=== PATIENT | female | born 1945 | race Caucasian/White ===

== ENCOUNTER 2020-03-16 23:21 | Emergency (ER) | payer MEDICARE ==
[2020-03-16 23:34] VITALS: TEMP 98.3
--- NOTE | 2020-03-16 23:43 | ED ---
Fall HPI - General Chief Complaint: Fall Stated Complaint: fall Time Seen by Provider: 03/16/20 23:25 Source: patient, EMS, RN notes reviewed, old records reviewed, Caregiver Mode of arrival: EMS Limitations: no limitations - History of Present Illness Initial Comments: This is a 74-year-old female DF for evaluation of fall. Patient had a fall with her Parkinson's history of multiple falls falls over trip loss of balance been in phone to the dresser hitting her head hitting the ground patient is able to get up and ambulate after this fall. No loss of consciousness no blood thinners. Patient does have some pain to her right side of her face and right elbow. 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 ROS Other: All systems not noted in ROS Statement are negative. 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 History of Any Multi-Drug Resistant Organisms: None Reported Past Surgical History: Section, Joint Replacement, Tonsillectomy, Tubal Ligation Past Psychological History: No Psychological Hx Reported Smoking Status: Never smoker Past Alcohol Use History: None Reported Past Drug Use History: None Reported General Exam Limitations: physical limitation General appearance: alert, in no apparent distress Head exam: Present: normocephalic, normal inspection. Absent: atraumatic (R eye contusion) Eye exam: Present: normal appearance, PERRL, EOMI. Absent: scleral icterus, conjunctival injection, periorbital swelling ENT exam: Present: normal exam, mucous membranes moist Neck exam: Present: normal inspection. Absent: tenderness, meningismus, lymphadenopathy Respiratory exam: Present: normal lung sounds bilaterally. Absent: respiratory distress, wheezes, rales, rhonchi, stridor Cardiovascular Exam: Present: regular rate, normal rhythm, normal heart sounds. Absent: systolic murmur, diastolic murmur, rubs, gallop, clicks GI/Abdominal exam: Present: soft, normal bowel sounds. Absent: distended, tenderness, guarding, rebound, rigid Extremities exam: Present: normal inspection, full ROM, tenderness (RUE), normal capillary refill, other (R elbow tenderness). Absent: pedal edema, joint swelling, calf tenderness Back exam: Present: normal inspection Neurological exam: Present: alert, oriented X3, CN II-XII intact Psychiatric exam: Present: normal affect, normal mood Skin exam: Present: warm, dry, intact, normal color. Absent: rash Course Vital Signs 03/16/20 23:24 Temperature 98.3 F Pulse Rate 74 Respiratory 16 Rate Blood Pressure 140/96 O2 Sat by Pulse 98 Oximetry - Reevaluation(s) Reevaluation #1: 03/17/20 01:35 Medical records reviewed Reevaluation #2: 03/17/20 01:35 Patient is not requiring anything new for pain - Consultations Consultation #1: Spoke with Dr. Rowland, patient's okay in the office Procedures - Orthopedic Splinting/Casting Injury #1 Side: right Upper Extremity Injury Location: elbow Upper Extremity Immobilizer: sling/shoulder immobilizer, posterior splint Medical Decision Making - Medical Decision Making 74 female status post fall she did sustain right transcondylar humerus fracture as well as posterior molded splint placed in sling which she has currently on, patient can be discharged - Radiology Data Radiology results: report reviewed (CT brain C-spine and facial bones x-ray of arm and pelvis and chest does amount to a right humerus fracture), image reviewed Disposition Clinical Impression: Fall, Head injury, Right humeral fracture Disposition: HOME SELF-CARE Condition: Fair Instructions (If sedation given, give patient instructions): Fall Prevention for Older Adults (ED), Arm Fracture in Adults (ED) Is patient prescribed a controlled substance at d/c from ED?: No Referrals: Francoise Castrejon MD [Primary Care Provider] - 1-2 days
--- NOTE | 2020-03-17 00:16 | XR ---
EXAMINATION TYPE: XR pelvis AP view DATE OF EXAM: 03/17/2020 COMPARISON: NONE HISTORY: Fall. Pain. TECHNIQUE: Single view FINDINGS: The pelvic ring is intact. There is a left hip prosthesis. Components are in anatomic posit ion. Sacroiliac joints appear intact. There is osteopenia. IMPRESSION: No acute abnormality of the pelvis.
--- NOTE | 2020-03-17 00:17 | XR ---
EXAMINATION TYPE: XR chest 1V DATE OF EXAM: 03/17/2020 COMPARISON: NONE HISTORY: Fall. Chest pain TECHNIQUE: Single view FINDINGS: Heart is normal. Thoracic aorta is atheromatous. Lungs are clear of infiltrate. There is no pleural effusion or pneumothorax. There is osteopenia. There is narrowing of the shoulder joint spac es. IMPRESSION: No active cardiopulmonary disease.
--- NOTE | 2020-03-17 00:18 | XR ---
EXAMINATION TYPE: XR shoulder limited RT DATE OF EXAM: 03/17/2020 COMPARISON: NONE HISTORY: Older pain TECHNIQUE: 2 views FINDINGS: I see no fracture nor dislocation. There is minor spurring at the greater tuberosity of the humerus. AC joint is intact. IMPRESSION: No acute abnormality of the right shoulder. Limited exam.
--- NOTE | 2020-03-17 00:25 | CT ---
EXAMINATION TYPE: CT brain yazmin saini DATE OF EXAM: 03/17/2020 COMPARISON: None HISTORY: fall CT DLP: 840.3 mGycm Automated exposure control for dose reduction was used. There is some cerebral cortical atrophy. There is no mass effect nor midline shift. There is no sign of intracranial hemorrhage. Calvarium is intact. There is some straightening of the cervical spine. There is severe disc space narrowing throughout th e cervical spine with ankylosis at C5-6 and C6-7. Posterior elements are intact. There is mild hypert rophic facet arthropathy. The skull base is intact. IMPRESSION: Cerebral atrophy. No acute intracranial abnormality. Lateral right side periorbital hematoma. Spondylotic changes in the cervical spine. No fracture.
--- NOTE | 2020-03-17 00:34 | CT ---
EXAMINATION TYPE: CT facial bones wo con DATE OF EXAM: 03/17/2020 COMPARISON: None HISTORY: fall CT DLP: 279.9 mGycm Automated exposure control for dose reduction was used. Images were obtained from the bottom of the mandible to the top of the frontal sinuses without contra st. Ventricular ring appears intact. Temporomandibular joints are intact. Zygomatic arches appear normal. The orbital margins are intact. There is no evidence of retro-orbital mass. There is fairly normal a eration of the paranasal sinuses. There is no evidence of a blowout fracture. There is normal aeratio n of the temporal bones. There is some debris in the external auditory canals. There is soft tissue s welling lateral to the right bony orbit. This measures up to almost 1 cm in thickness. IMPRESSION: No fracture. Right side periorbital soft tissue swelling and hematoma.
--- NOTE | 2020-03-17 00:35 | XR ---
EXAMINATION TYPE: XR elbow limited RT DATE OF EXAM: 03/17/2020 COMPARISON: NONE HISTORY: Elbow pain TECHNIQUE: 3 views FINDINGS: There is minor spurring on the olecranon process of the ulna. There is nondisplaced transco ndylar fracture of the distal humerus. There is no dislocation. IMPRESSION: Acute transcondylar fracture of the distal humerus.
[2020-03-17 01:45] VITALS: BP 122/80; PULSE 79; RESP 18
== END 2020-03-17 02:10 | disposition home or self-care (01) ==
LOC: EC 23:21
DX: S42.474A Nondisplaced transcondylar fracture of right humerus, initial encounter for closed fracture (principal); S09.90XA Unspecified injury of head, initial encounter; Z86.69 Personal history of other diseases of the nervous system and sense organs; W01.198A Fall on same level from slipping, tripping and stumbling with subsequent striking against other object, initial encounter; Y92.009 Unspecified place in unspecified non-institutional (private) residence as the place of occurrence of the external cause
CPT/HCPCS: 29105; 70450; 70486; 71045; 72125; 72170; 99284

== ENCOUNTER 2020-05-06 18:43 | Emergency (ER) | payer MEDICARE ==
[2020-05-06 18:47] VITALS: RESP 18
[2020-05-06] MEDS ORDERED: SODIUM CHLORIDE 0.9% 500 ML 500 ML IV STA (19:11)
--- NOTE | 2020-05-06 19:43 | ED ---
Recheck HPI - General Source: EMS Mode of arrival: EMS Limitations: no limitations <Vonda Slaughter - Last Filed: 05/07/20 02:35> <Radha Rodriguez - Last Filed: 05/10/20 16:59> - General Chief Complaint: Recheck/Abnormal Lab/Rx Stated Complaint: lethargy Time Seen by Provider: 05/06/20 18:47 - History of Present Illness Initial Comments: Patient is a 74-year-old female, history of Parkinson's, A. fib, presenting to the emergency Department with complaints of low blood pressure. Patient states she was prescribed metoprolol when necessary for blood pressure that is greater than 120. Patient states her blood pressure was 140 earlier today so she took one metoprolol. Patient's blood pressure dropped down to 60/30 and so they called her PCP and recommended her coming to the ER. They did check her blood p ressure 5-6 times over a 20 minute course and the blood pressure did come up to 110/80. Patient states she has no complaints, "she feels fine." The daughter states that the patient was complaining of dysuria a few days ago. She has been eating and drinking as normal. There has been no other changes in her medications. Patient denies chest pain, shortness of breath, cough, recent fever or chills. She denies any abdominal pain, nausea, vomiting. There are no further complaints at this time. Upon arrival to the ER, her blood pressure is 105/80, rest of vitals normal. (Vonda Slaughter) - Related Data Previous Rx's Medication Instructions Recorded Cephalexin [Keflex] 500 mg PO BID 5 Days #10 cap 05/06/20 Allergies Allergy/AdvReac Type Severity Reaction Status Date / Time No Known Allergies Allergy Verified 03/16/20 23:58 Review of Systems ROS Other: All systems not noted in ROS Statement are negative. <Vonda Slaughter - Last Filed: 05/07/20 02:35> ROS Other: All systems not noted in ROS Statement are negative. <Radha Rodriguez - Last Filed: 05/10/20 16:59> ROS Statement: Those systems with pertinent positive or pertinent negative responses have been documented in the HPI. 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 History of Any Multi-Drug Resistant Organisms: None Reported Past Surgical History: Section, Joint Replacement, Tonsillectomy, Tubal Ligation Past Psychological History: No Psychological Hx Reported Smoking Status: Never smoker Past Alcohol Use History: None Reported Past Drug Use History: None Reported <Vonda Slaughter - Last Filed: 05/07/20 02:35> General Exam Limitations: no limitations <Vonda Slaughter - Last Filed: 05/07/20 02:35> - General Exam Comments Initial Comments: GENERAL: Well-appearing, well-nourished and in no acute distress. HEAD: Atraumatic, normocephalic. EYES: Pupils equal round and reactive to light, extraocular movements intact, sclera anicteric, conjunctiva are normal. ENT: TMs normal, nares patent, oropharynx clear without exudates. Moist mucous membranes. NECK: Normal range of motion, supple without lymphadenopathy or JVD. LUNGS: Breath sounds clear to auscultation bilaterally and equal. No wheezes rales or rhonchi. HEART: Regular rate and rhythm without murmurs, rubs or gallops. ABDOMEN: Soft, nontender, normoactive bowel sounds. No guarding, no rebound. No masses appreciated. : Deferred EXTREMITIES: Normal range of motion, no pitting or edema. No clubbing or cyanosis. NEUROLOGICAL: Cranial nerves II through XII grossly intact. Normal speech, normal gait. PSYCH: Normal mood, normal affect. SKIN: Warm, Dry, normal turgor, no rashes or lesions noted. (Vonda Slaughter) Course Vital Signs 05/06/20 05/06/20 05/06/20 18:43 20:20 21:12 Temperature 97.0 F L 97.9 F Pulse Rate 69 70 74 Respiratory 18 18 18 Rate Blood Pressure 105/80 134/87 152/80 O2 Sat by Pulse 98 97 98 Oximetry Medical Decision Making - Lab Data Result diagrams: 05/06/20 19:33 05/06/20 19:33 <Vonda Slaughter - Last Filed: 05/07/20 02:35> - Lab Data Result diagrams: 05/06/20 19:33 05/06/20 19:33 <Radha Rodriguez - Last Filed: 07/02/20 16:59> - Medical Decision Making Patient is a 74-year-old female here with history of Parkinson's, A. malka, presenting for low blood pressure at home after taking metoprolol today. Upon arrival here, her blood pressure was 105/80. After I examined the patient and her blood pressure was normal at 134/87. Patient had no complaints here. Her exam is unremarkable. Her EKG did show a lot of artifact, atrial flutter, with a normal rate of 67. I do not have another EKG to compare this to. She does have history of Parkinson's so there is a lot of shaking. The rest of her lab work showed no acute findings, her urine did have some bacteria, 20 WBCs. I will treat her for a UTI with Keflex. First dose given in the ER. Urine culture is pending. I did discuss this patient with her PCP, Dr. Castrejon who is okay with patient going home and she will see her in the office on Thursday. She did not recommend anticoagulation at this time secondary to her Parkinson's and risk for falls. Patient is stable for discharge and she hasn't agreement with this plan of care. Return parameters were discussed with the patient and her daughter and they both verbalized understanding. Case is discussed with Dr. Rodriguez. (Vonda Slaughter) I was available for consultation in the emergency department. The history and physical exam were done by the midlevel provider. I was consulted for this patients care. I reviewed the case with the midlevel provider and based on their presentation of the patient, I agree with the assessment, medical decision making and plan of care as documented. Chart was dictated using [employer] dictation software. Attempts were made to correct any dictation errors however some typographical errors may persist. Patient was seen during a national state of emergency due to the Covid-19 pandemic. (Radha Rodriguez) - Lab Data Lab Results 05/06/20 05/06/20 05/06/20 Range/Units 19:23 19:33 19:33 WBC 5.3 (3.8-10.6) k/uL RBC 4.27 (3.80-5.40) m/uL Hgb 12.7 (11.4-16.0) gm/dL Hct 40.2 (34.0-46.0) % MCV 94.2 (80.0-100.0) fL MCH 29.7 (25.0-35.0) pg MCHC 31.5 (31.0-37.0) g/dL RDW 13.6 (11.5-15.5) % Plt Count 163 (150-450) k/uL Neutrophils % 67 % Lymphocytes % 21 % Monocytes % 6 % Eosinophils % 3 % Basophils % 1 % Neutrophils # 3.5 (1.3-7.7) k/uL Lymphocytes # 1.1 (1.0-4.8) k/uL Monocytes # 0.3 (0-1.0) k/uL Eosinophils # 0.2 (0-0.7) k/uL Basophils # 0.1 (0-0.2) k/uL Sodium 136 L (137-145) mmol/L Potassium 4.4 (3.5-5.1) mmol/L Chloride 100 (98-107) mmol/L Carbon Dioxide 28 (22-30) mmol/L Anion Gap 8 mmol/L BUN 17 (7-17) mg/dL Creatinine 0.37 L (0.52-1.04) mg/dL Est GFR (CKD-EPI)AfAm >90 (>60 ml/min/1.73 sqM) Est GFR (CKD-EPI)NonAf >90 (>60 ml/min/1.73 sqM) Glucose 120 H (74-99) mg/dL Calcium 9.3 (8.4-10.2) mg/dL Total Bilirubin 0.5 (0.2-1.3) mg/dL AST 18 (14-36) U/L ALT 6 (4-34) U/L Alkaline Phosphatase 75 (38-126) U/L Total Protein 7.1 (6.3-8.2) g/dL Albumin 4.1 (3.5-5.0) g/dL Urine Color Yellow Urine Appearance Cloudy H (Clear) Urine pH 6.0 (5.0-8.0) Ur Specific [place] 1.019 (1.001-1.035) Urine Protein Trace H (Negative) Urine Glucose (UA) Negative (Negative) Urine Ketones Trace H (Negative) Urine Blood Negative (Negative) Urine Nitrite Negative (Negative) Urine Bilirubin Negative (Negative) Urine Urobilinogen 3.0 (<2.0) mg/dL Ur Leukocyte Esterase Moderate H (Negative) Urine RBC 2 (0-5) /hpf Urine WBC 20 H (0-5) /hpf Ur Squamous Epith Cells <1 (0-4) /hpf Amorphous Sediment Occasional H (None) /hpf Urine Bacteria Rare H (None) /hpf Hyaline Casts 14 H (0-2) /lpf Urine Mucus Moderate H (None) /hpf - EKG Data EKG Comments: EKG appears to be in atrial flutter, no signs of acute ischemia. Patient does have Parkinson's so there is a lot of artifact as well. Ventricular rate 68, QRS duration 92, QTC 414. (Vonda Slaughter) Disposition Is patient prescribed a controlled substance at d/c from ED?: No <Vonda Slaughter - Last Filed: 05/07/20 02:35> <Radha Rodriguez - Last Filed: 05/10/20 16:59> Clinical Impression: UTI (urinary tract infection) Disposition: HOME SELF-CARE Condition: Stable Instructions (If sedation given, give patient instructions): Urinary Tract Infection in Older Adults (ED) Additional Instructions: Please return to the Emergency Department if symptoms worsen or any other maggy rns. Take antibiotic as prescribed. Follow-up with Dr. Castrejon's office on Thursday as discussed. Prescriptions: Cephalexin [Keflex] 500 mg PO BID 5 Days #10 cap Referrals: Francoise Castrejon MD [Primary Care Provider] - 1-2 days
[2020-05-06 19:50] LABS: Amorphous Sediment,Urine Occasional /hpf; Appearance,Urine Cloudy (Clear); Bacteria,Urine Rare /hpf; Bilirubin,Urine Negative (Negative); Blood,Urine Negative (Negative); Color,Urine Yellow; Glucose,Urine (UA) Negative (Negative); Hyaline Casts,Urine 14 /lpf (0-2); Ketones,Urine Trace (Negative); Leukocyte Esterase,Urine Moderate (Negative); Mucus,Urine Moderate /hpf; Nitrite,Urine Negative (Negative); Protein,Urine Trace (Negative); RBC,Urine 2 /hpf (0-5); Specific Gravity,Urine 1.019 (1.001-1.035); Squamous Epithelial Cell,Urine <1 /hpf (0-4); WBC,Urine 20 /hpf (0-5)
[2020-05-06 19:53] LABS: Basophils # (A) 0.1 k/uL (0-0.2); Basophils % (A) 1 %; Eosinophils # (A) 0.2 k/uL (0-0.7); Eosinophils % (A) 3 %; HCT 40.2 % (34.0-46.0); HGB 12.7 gm/dL (11.4-16.0); Lymphocytes # (A) 1.1 k/uL (1.0-4.8); Lymphocytes % (A) 21 %; MCH 29.7 pg (25.0-35.0); MCHC 31.5 g/dL (31.0-37.0); MCV 94.2 fL (80.0-100.0); Mean Platelet Volume 10.1; Monocytes # (A) 0.3 k/uL (0-1.0); Monocytes % (A) 6 %; Neutrophils # (A) 3.5 k/uL (1.3-7.7); Neutrophils % (A) 67 %; Platelet Count 163 k/uL (150-450); RBC 4.27 m/uL (3.80-5.40); RDW 13.6 % (11.5-15.5); WBC 5.3 k/uL (3.8-10.6)
[2020-05-06 20:02] LABS: ALT 6 U/L (4-34); AST 18 U/L (14-36); African American GFR (CKD) >90 (>60 ml/min/1.73 sqM); Albumin 4.1 g/dL (3.5-5.0); Alkaline Phosphatase 75 U/L (38-126); Anion Gap 8 mmol/L; Blood Urea Nitrogen 17 mg/dL (7-17); Calcium 9.3 mg/dL (8.4-10.2); Carbon Dioxide 28 mmol/L (22-30); Chloride 100 mmol/L (98-107); Glucose 120 mg/dL (74-99); Non-African American GFR(CKD) >90 (>60 ml/min/1.73 sqM); Potassium 4.4 mmol/L (3.5-5.1); Sodium 136 mmol/L (137-145); Total Bilirubin 0.5 mg/dL (0.2-1.3); Total Protein 7.1 g/dL (6.3-8.2)
[2020-05-06] MEDS ORDERED: CEPHALEXIN 500 MG CAP PO STA (20:55)
[2020-05-06 21:13] VITALS: BP 152/80; PULSE 74; TEMP 97.9
== END 2020-05-06 21:13 | disposition home or self-care (01) ==
LOC: EC 18:43
DX: I48.92 Unspecified atrial flutter (principal); I48.91 Unspecified atrial fibrillation; G20 Parkinson's disease; N39.0 Urinary tract infection, site not specified
CPT/HCPCS: 36415; 80053; 81001; 85025; 87086; 93005; 99284

== ENCOUNTER 2021-03-24 19:05 | Inpatient (IN) | payer MEDICARE ==
[2021-03-24 20:00] LABS: Basophils % (A) 1 %; Eosinophils # (A) 0.1 k/uL (0-0.7); Eosinophils % (A) 2 %; HCT 38.3 % (34.0-46.0); Lymphocytes # (A) 0.6 k/uL (1.0-4.8); Lymphocytes % (A) 12 %; MCH 31.4 pg (25.0-35.0); MCHC 33.9 g/dL (31.0-37.0); MCV 92.7 fL (80.0-100.0); Mean Platelet Volume 8.9; Monocytes # (A) 0.2 k/uL (0-1.0); Monocytes % (A) 5 %; Neutrophils % (A) 80 %; Platelet Count 143 k/uL (150-450); RBC 4.14 m/uL (3.80-5.40)
[2021-03-24] MEDS ORDERED: SODIUM CHLORIDE 0.9% 500 ML 500 ML IV ONE (20:00)
[2021-03-24] MEDS ORDERED: ACETAMINOPHEN TAB 325 MG TAB PO STA (20:00)
[2021-03-24 20:01] LABS: Appearance,Urine Clear (Clear); Bilirubin,Urine Negative (Negative); Blood,Urine Small (Negative); Color,Urine Yellow; Glucose,Urine (UA) Negative (Negative); Ketones,Urine Negative (Negative); Leukocyte Esterase,Urine Negative (Negative); Mucus,Urine Occasional /hpf; Nitrite,Urine Negative (Negative); Protein,Urine Negative (Negative); RBC,Urine 1 /hpf (0-5); Urobilinogen,Urine <2.0 mg/dL (<2.0); WBC,Urine 1 /hpf (0-5)
[2021-03-24 20:09] LABS: ALT <6 U/L (4-34); AST 21 U/L (14-36); African American GFR (CKD) >90 (>60 ml/min/1.73 sqM); Albumin 4.4 g/dL (3.5-5.0); Alkaline Phosphatase 75 U/L (38-126); Anion Gap 7 mmol/L; Blood Urea Nitrogen 11 mg/dL (7-17); Calcium 9.4 mg/dL (8.4-10.2); Carbon Dioxide 29 mmol/L (22-30); Chloride 104 mmol/L (98-107); Glucose 133 mg/dL (74-99); Non-African American GFR(CKD) >90 (>60 ml/min/1.73 sqM); Potassium 3.7 mmol/L (3.5-5.1); Sodium 140 mmol/L (137-145); Total Bilirubin 0.6 mg/dL (0.2-1.3); Total Protein 7.2 g/dL (6.3-8.2)
--- NOTE | 2021-03-24 20:26 | ED ---
Fall HPI - General Chief Complaint: Fall Stated Complaint: Lft thigh pain Time Seen by Provider: 03/24/21 19:14 Source: patient, EMS Mode of arrival: EMS - History of Present Illness Initial Comments: 75-year-old female presenting today for chief complaint of slip and fall. Patie nt states that she was to use restroom when she stood up she fell backwards. Patient states she has left mid thigh pain. Patient states she is unsure if she hit her head. She denies a chest pain shortness of breath abdominal pain neck pain nausea vomiting visual changes. Patient denies dizziness, lightheadedness. pt had frequency of urination a few days ago but she states that went away. remaining ROS (-). Pt febrile on arrival. Denies cough, congestion, rashes. Denies LOC/anticoagulation therapy. - Related Data Home Medications Medication Instructions Recorded Confirmed Aspirin EC [Ecotrin Low Dose] 81 mg PO DAILY 03/24/21 03/24/21 Carbidopa-Levodopa 25-250 mg 1 tab PO QID 03/24/21 03/24/21 [Sinemet 25-250] Cyanocobalamin (Vitamin B-12) 1,000 mcg PO DAILY 03/24/21 03/24/21 [Vitamin B-12] Ergocalciferol (Vitamin D2) 1,250 mcg PO SA 03/24/21 03/24/21 [Drisdol (50,000 Iu)] Famotidine 20 mg PO DAILY 03/24/21 03/24/21 Midodrine HCl [ProAmatine] 10 mg PO TID 03/24/21 03/24/21 Sertraline [Zoloft] 50 mg PO DAILY 03/24/21 03/24/21 Allergies Allergy/AdvReac Type Severity Reaction Status Date / Time No Known Allergies Allergy Verified 03/24/21 21:24 Review of Systems ROS Statement: Those systems with pertinent positive or pertinent negative responses have been documented in the HPI. ROS Other: All systems not noted in ROS Statement are negative. 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 History of Any Multi-Drug Resistant Organisms: None Reported Past Surgical History: Section, Joint Replacement, Tonsillectomy, Tubal Ligation Past Psychological History: No Psychological Hx Reported Smoking Status: Former smoker Past Alcohol Use History: None Reported Past Drug Use History: None Reported General Exam - General Exam Comments Initial Comments: General: The patient is awake and alert, in no distress Eye: +3 mm pupils are equal, round and reactive to light, extra-ocular movements are intact. No nystagmus. There is normal conjunctiva bilaterally. No signs of icterus. Ears, nose, mouth and throat: There are moist mucous membranes and no oral lesions. Neck: The neck is supple, there is no tenderness or JVD. Cardiovascular: There is a regular rate and rhythm. No murmur, rub or gallop is appreciated. Respiratory: Lungs are clear to auscultation, respirations are non-labored, breath sounds are equal. No wheezes, stridor, rales, or rhonchi. Gastrointestinal: Soft, non-distended, non-tender abdomen without masses or organomegaly noted. There is no rebound or guarding present. Musculoskeletal: Mild shortening of the left leg noted. pain mid/proximal femur to palpation, no hematoma noted. Normal ROM, at ankle/toes. Strength 5/5. Sensation intact. DP pulses equal bilaterally 2+. Neurological: A&O x 3. CN II-XII intact grossly, There are no obvious motor or sensory deficits. Coordination appears grossly intact. Speech is normal. Skin: Skin is warm and dry and no rashes or lesions are noted. Psychiatric: Cooperative, appropriate mood & affect, normal judgment. Limitations: physical limitation Course Vital Signs 03/24/21 03/24/21 03/24/21 19:07 19:48 20:33 Temperature 100.8 F H 99.4 F Pulse Rate 80 81 96 Respiratory 18 14 17 Rate Blood Pressure 152/88 152/88 O2 Sat by Pulse 96 91 L 98 Oximetry Medical Decision Making - Medical Decision Making 75-year-old female presenting to ER today for chief complaint of fall left thigh pain. Prosthetic fracture present. Patient states she is not or surgeon's name nor does the daughter. It was done in [place] patient now lives in [facility] here with her daughter secondary to frequent falls due to Parkinson's disease. pt has no additional injuries found. denied headache injury. was taken off anticoagulation due to frequent falls but does have atrial fibrillation. pt case discussed with KADEEM Valadez who is agreeable to admission to Dr Daniels. NPO recommended. - Lab Data Result diagrams: 03/24/21 19:39 03/24/21 19:39 Lab Results 03/24/21 03/24/21 03/24/21 Range/Units 19:39 19:39 19:39 WBC 5.0 (3.8-10.6) k/uL RBC 4.14 (3.80-5.40) m/uL Hgb 13.0 (11.4-16.0) gm/dL Hct 38.3 (34.0-46.0) % MCV 92.7 (80.0-100.0) fL MCH 31.4 (25.0-35.0) pg MCHC 33.9 (31.0-37.0) g/dL RDW 13.0 (11.5-15.5) % Plt Count 143 L (150-450) k/uL MPV 8.9 Neutrophils % 80 % Lymphocytes % 12 % Monocytes % 5 % Eosinophils % 2 % Basophils % 1 % Neutrophils # 4.0 (1.3-7.7) k/uL Lymphocytes # 0.6 L (1.0-4.8) k/uL Monocytes # 0.2 (0-1.0) k/uL Eosinophils # 0.1 (0-0.7) k/uL Basophils # 0.0 (0-0.2) k/uL Sodium 140 (137-145) mmol/L Potassium 3.7 (3.5-5.1) mmol/L Chloride 104 (98-107) mmol/L Carbon Dioxide 29 (22-30) mmol/L Anion Gap 7 mmol/L BUN 11 (7-17) mg/dL Creatinine 0.39 L (0.52-1.04) mg/dL Est GFR (CKD-EPI)AfAm >90 (>60 ml/min/1.73 sqM) Est GFR (CKD-EPI)NonAf >90 (>60 ml/min/1.73 sqM) Glucose 133 H (74-99) mg/dL Calcium 9.4 (8.4-10.2) mg/dL Total Bilirubin 0.6 (0.2-1.3) mg/dL AST 21 (14-36) U/L ALT <6 (4-34) U/L Alkaline Phosphatase 75 (38-126) U/L Total Protein 7.2 (6.3-8.2) g/dL Albumin 4.4 (3.5-5.0) g/dL Urine Color Yellow Urine Appearance Clear (Clear) Urine pH 5.0 (5.0-8.0) Ur Specific [place] 1.010 (1.001-1.035) Urine Protein Negative (Negative) Urine Glucose (UA) Negative (Negative) Urine Ketones Negative (Negative) Urine Blood Small H (Negative) Urine Nitrite Negative (Negative) Urine Bilirubin Negative (Negative) Urine Urobilinogen <2.0 (<2.0) mg/dL Ur Leukocyte Esterase Negative (Negative) Urine RBC 1 (0-5) /hpf Urine WBC 1 (0-5) /hpf Urine Mucus Occasional H (None) /hpf Disposition Clinical Impression: Left femoral shaft fracture, Periprosthetic fracture of proximal end of femur, Fall, Fever Disposition: ADMITTED IP TO THIS HOSP Condition: Stable Is patient prescribed a controlled substance at d/c from ED?: No Referrals: Francoise Castrejon MD [Primary Care Provider] - 1-2 days Time of Disposition: 21:52 Decision to Admit Reason: Admit from EC Decision Date: 03/24/21 Decision Time: 21:52
--- NOTE | 2021-03-24 20:29 | CT ---
EXAMINATION TYPE: CT brain cspine wo con DATE OF EXAM: 03/24/2021 COMPARISON: 03/16/2020 HISTORY: Fall with head injury CT DLP: 1299.9 mGycm Automated exposure control for dose reduction was used. There is some cerebral cortical atrophy. There is no mass effect nor midline shift. There is no sign of intracranial hemorrhage. There is mild hypodensity in the periventricular white matter. The calvar ium is intact. Skull base is intact. There is fairly normal aeration of the mastoid sinuses. The cervical vertebra have normal alignment. There is ankylotic change in the spine with fusion of C5 and C6 and C7 vertebra. There is moderate anterior spurring in the upper cervical spine. There is mu ltilevel hypertrophic facet arthropathy. I see no compression fracture. There is no evidence of focal bone destruction. There is some bony spinal stenosis at C5-6 and C6-7 due to spurring at the posteri or longitudinal ligament. IMPRESSION: Cerebral mild atrophy. Chronic small vessel ischemia. White matter disease is more noticeable than ol d exam. 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 No acute bony abnormality of the cer vical spine. There is some spinal stenosis at C5-6 and C6-7.
--- NOTE | 2021-03-24 20:33 | XR ---
EXAMINATION TYPE: XR chest 2V DATE OF EXAM: 03/24/2021 COMPARISON: 03/17/2020 HISTORY: Fall. Chest pain. TECHNIQUE: FINDINGS: There is no heart failure nor confluent pneumonic infiltrate. Costophrenic angles are clear . There are no hilar masses. Heart size is normal. The bones appear osteopenic. IMPRESSION: No active cardiopulmonary disease. No change.
--- NOTE | 2021-03-24 20:41 | XR ---
EXAMINATION TYPE: XR Hip LT and AP Pelvis DATE OF EXAM: 03/24/2021 COMPARISON: 03/17/2020 HISTORY: Pain. Fall. TECHNIQUE: 3 views FINDINGS: The pelvic ring appears intact. There is left hip prosthesis. Components appear in anatomic position. There is osteopenia. There is nondisplaced oblique fracture of the shaft of the femur belo w the lesser trochanter. IMPRESSION: Acute fracture of the proximal femur below the lesser trochanter.
--- NOTE | 2021-03-24 20:43 | XR ---
EXAMINATION TYPE: XR femur LT DATE OF EXAM: 03/24/2021 COMPARISON: NONE HISTORY: Fall. Pain. TECHNIQUE: 4 views FINDINGS: There is left hip prosthesis. Components appear in anatomic position. There is nondisplaced oblique fracture of the proximal shaft of the left femur. There is cortical mild step deformity on t he medial aspect of the prosthesis in the subtrochanteric femur. The knee joint appears intact. There is spurring on the patella. There is osteopenia. IMPRESSION: Acute nondisplaced fracture of the proximal shaft of the femur.
[2021-03-24] MEDS ORDERED: MORPHINE SULFATE 2 MG/ML SYRINGE IVP STA (21:38)
[2021-03-24] MEDS ORDERED: NALOXONE 0.4 MG/ML 1 ML VIAL IV PRN (21:50)
[2021-03-25] MEDS ORDERED: HYDROcodone/APAP 7.5-325MG 1 EACH TAB PO PRN (02:03)
[2021-03-25] MEDS: MIDODRINE 5 MG TAB PO SCH ×3 (10:04→19:55)
[2021-03-25] MEDS: SODIUM CHLORIDE 0.9% 1,000 ML IV SCH ×2 (11:38→19:55)
[2021-03-25] MEDS: CARBIDOPA-LEVODOPA 25-250 MG 1 EACH TAB PO SCH ×3 (13:17→19:54)
--- NOTE | 2021-03-25 14:00 | P.CONS ---
History of Present Illness - Reason for Consult Consult date: 03/25/21 Medical management - Chief Complaint Left femur fx - History of Present Illness HISTORY OF PRESENT ILLNESS This is a 75-year-old female patient of Dr. Castrejon with past medical history of chronic atrial fibrillation not on anticoagulation secondary to frequent falls, COPD, hypotension, Parkinson's disease, recurrent depression. Patient states that she was in her bedroom tripped and injured her left thigh area. She complains of significant pain to the area was unable to bare weight. She denies having any lightheadedness or dizziness. Denies loss of consc iousness. Patient presented to [facility] emergency center for evaluation. CBC was unremarkable except for platelet count of 143. Hemoglobin was 13.0. Electrolytes within normal range. BUN 11 and creatinine 0.39. Blood sugar 133. Liver function tests were normal. Urinalysis negative for infection. Left hip and pelvis x-rays revealed acute fracture of the proximal femur below the lesser trochanter. Patient does have a left hip prosthesis. CAT scan of the brain and cervical spine revealed cerebral mild atrophy. Chronic small vessel ischemia. White matter disease is more noticeable than old exam. 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 No acute bony abnormality of the cervical spine. There is some spinal stenosis at C4-6 and C6-7. Chest x-ray reveals no acute cardiopulmonary disease. Patient was admitted to orthopedics on the [facility] floor. REVIEW OF SYSTEMS Constitutional: No fever, no chills, no night sweats. No weight change. No weakness, fatigue or lethargy. No daytime sleepiness. EENT: No headache. No blurred vision or double vision, no loss of vision. No loss of Hearing, no ringing in the ears, no dizziness. No nasal drainage or congestion. No epistaxis. No sore throat. Lungs: No shortness of breath, cough, no sputum production. No wheezing. Cardiovascular: No chest pain, no lower extremity edema. No palpitations. No paroxysmal nocturnal dyspnea. No orthopnea. Denies lightheadedness or dizziness. No syncopal episodes. Abdominal: No abdominal pain. No nausea, vomiting. No diarrhea. No constipation. No bloody or tarry stools.. No loss of appetite. Genitourinary: No dysuria, increased frequency, urgency. No urinary retention. Musculoskeletal: No myalgias. No muscle weakness, no gait dysfunction, reports frequent falls. No back pain. No neck pain. Reports left femur pain. Integumentary: No wounds, no lesions. No rash or pruritus. No unusual bruising. No change in hair or nails. Neurologic: No aphasia. No facial droop. No change in mentation. No head injury. No headache. No paralysis. No paresthesia. Psychiatric: No depression. No anxiety. No mood swings. Endocrine: No abnormal blood sugars. No weight change. MEDICAL HISTORY Chronic atrial fibrillation not on anticoagulation secondary to frequent falls, COPD, hypotension on midodrine, Parkinson's disease, recurrent depression. SURGERY HISTORY Left hip replacement 2010, bilateral tubal ligation, tonsillectomy, . SOCIAL HISTORY Patient is a lifelong nonsmoker. No history of alcohol use. She has and lives with daughter and son-in-law. She has a walker and cane at home. No oxygen, nebulizer, CPAP. FAMILY HISTORY Mother is with history of diabetes. PHYSICAL EXAMINATION Gen: This is a 75-year-old female. Patient is resting in bed and appears to be comfortable and in no acute distress. HEENT: Head is atraumatic, normocephalic. Pupils equal, round. Sclerae is anicteric. NECK: Supple. No JVD. No lymphadenopathy. No thyromegaly. LUNGS: Clear to auscultation. No wheezes or rhonchi. No intercostal retractions. HEART: Regular rate and rhythm. No murmur. ABDOMEN: Soft. Bowel sounds are present. No masses. No tenderness. EXTREMITIES: No pedal edema. No calf tenderness. Dorsalis pedis palpable bilaterally. NEUROLOGICAL: Patient is awake, alert and oriented x3. Cranial nerves 2 through 12 are grossly intact. ASSESSMENT AND PLAN 1. Left femur fracture. Patient admitted to the orthopedic service. Continue [place] for pain. 2. History of atrial fibrillation not on anticoagulation secondary to frequent falls. 3. COPD, stable. 4. Hypotension. Continue med a drain 10 mg 3 times daily with parameters. 5. Parkinson's disease. Continue Sinemet [id number] one 4 times daily. 6. Recurrent depression. Continue Zoloft 50 mg daily. 7. Gastroesophageal reflux disease and GI prophylaxis. Continue Pepcid 20 g daily. 8. DVT prophylaxis following surgery. 9. COVID-19 testing negative. Patient has been hospitalized during a pandemic. Patient will be admitted to the hospital for a minimum of 2 night stay. DISCHARGE PLAN Anticipate need for subacute rehab. Impression and plan of care have been directed as dictated by the signing physician. Leslie Jaramillo nurse practitioner acting as scribe for signing physician. 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 History of Any Multi-Drug Resistant Organisms: None Reported Past Surgical History: Section, Joint Replacement, Tonsillectomy, Tubal Ligation Past Anesthesia/Blood Transfusion Reactions: No Reported Reaction Past Psychological History: No Psychological Hx Reported Smoking Status: Never smoker Past Alcohol Use History: None Reported Past Drug Use History: None Reported Medications and Allergies Home Medications Medication Instructions Recorded Confirmed Type Aspirin EC [Ecotrin Low Dose] 81 mg PO DAILY 03/24/21 03/24/21 History Carbidopa-Levodopa 25-250 mg 1 tab PO QID 03/24/21 03/24/21 History [Sinemet 25-250] Cyanocobalamin (Vitamin B-12) 1,000 mcg PO DAILY 03/24/21 03/24/21 History [Vitamin B-12] Ergocalciferol (Vitamin D2) 1,250 mcg PO SA 03/24/21 03/24/21 History [Drisdol (50,000 Iu)] Famotidine 20 mg PO DAILY 03/24/21 03/24/21 History Midodrine HCl [ProAmatine] 10 mg PO TID 03/24/21 03/24/21 History Sertraline [Zoloft] 50 mg PO DAILY 03/24/21 03/24/21 History Allergies Allergy/AdvReac Type Severity Reaction Status Date / Time No Known Allergies Allergy Verified 03/24/21 21:24 Physical Exam Vitals: Vital Signs Temp Pulse Pulse Resp BP BP Pulse Ox 03/25/21 07:19 98.7 F 95 17 166/96 96 03/24/21 23:26 98.9 F 80 15 167/94 97 03/24/21 22:41 100.3 F H 92 16 150/90 97 03/24/21 20:33 99.4 F 96 17 98 03/24/21 19:48 81 14 152/88 91 L 03/24/21 19:07 100.8 F H 80 18 152/88 96 Intake and Output 05/16/21 05/17/21 05/17/21 22:59 06:59 14:59 Output Total 25 400 Balance -25 -400 Output: Urine 25 400 Straight 25 Other: Weight 58.513 kg 58.513 kg Results CBC & Chem 7: 03/24/21 19:39 03/24/21 19:39 Labs: Abnormal Lab Results - Last 24 Hours (Table) 03/24/21 03/24/21 03/24/21 Range/Units 19:39 19:39 19:39 Plt Count 143 L (150-450) k/uL Lymphocytes # 0.6 L (1.0-4.8) k/uL Creatinine 0.39 L (0.52-1.04) mg/dL Glucose 133 H (74-99) mg/dL Urine Blood Small H (Negative) Urine Mucus Occasional H (None) /hpf
--- NOTE | 2021-03-25 15:30 | P.HPOR ---
History of Present Illness H&P Date: 03/25/21 This is a 75-year-old female who is admitted for periprosthetic fracture of her left femur. Patient is seen and evaluated at bedside today with Dr. Raffy Rowland. Patient's daughter is at bedside today. Patient states that she sustained a fall at home on 03/24/2021. The patient's daughter states that Valerie uses a walker to ambulate and has frequent falls due to shuffling her feet from Parkinson's disease. Patient states that she had her left hip [place] done in [address] Patient states that prior to this injury she did not have any issues with her hip replacement. Patient states that the majority of her pain is in her mid left thigh. Patient denies any fever/chills, numbness, weakness, tingling, abdominal pain, shortness of breath or chest pain. Patient's past medical history is significant for atrial fibrillation, COPD and Parkinson's disease. Review of Systems See HPI. 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 History of Any Multi-Drug Resistant Organisms: None Reported Past Surgical History: Section, Joint Replacement, Tonsillectomy, Tubal Ligation Past Anesthesia/Blood Transfusion Reactions: No Reported Reaction Past Psychological History: No Psychological Hx Reported Smoking Status: Never smoker Past Alcohol Use History: None Reported Past Drug Use History: None Reported Medications and Allergies Home Medications Medication Instructions Recorded Confirmed Type Aspirin EC [Ecotrin Low Dose] 81 mg PO DAILY 03/24/21 03/24/21 History Carbidopa-Levodopa 25-250 mg 1 tab PO QID 03/24/21 03/24/21 History [Sinemet 25-250] Cyanocobalamin (Vitamin B-12) 1,000 mcg PO DAILY 03/24/21 03/24/21 History [Vitamin B-12] Ergocalciferol (Vitamin D2) 1,250 mcg PO SA 03/24/21 03/24/21 History [Drisdol (50,000 Iu)] Famotidine 20 mg PO DAILY 03/24/21 03/24/21 History Midodrine HCl [ProAmatine] 10 mg PO TID 03/24/21 03/24/21 History Sertraline [Zoloft] 50 mg PO DAILY 03/24/21 03/24/21 History Allergies Allergy/AdvReac Type Severity Reaction Status Date / Time No Known Allergies Allergy Verified 03/24/21 21:24 Physical Examination On exam patient is resting comfortably in bed in no acute distress. Patient is alert and oriented. There is mild swelling over the left thigh. Patient has pain with motion of the left lower extremity. There is no erythema or ecchymosis and skin is intact. The left lower extremity is warm and well perfused. Calf is soft and nontender to palpation. Sensation intact. Neurovascular status and circulatory status are intact. Head is normocephalic and atraumatic. Exams of bilateral upper extremities and the right lower extremity are within normal limits. Results X-rays of the left hip and pelvis reveal a nondisplaced periprosthetic fracture of the left femur. Left total hip arthroplasty is in good position and alignment. - Labs Labs: Abnormal Lab Results - Last 24 Hours (Table) 03/24/21 03/24/21 03/24/21 Range/Units 19:39 19:39 19:39 Plt Count 143 L (150-450) k/uL Lymphocytes # 0.6 L (1.0-4.8) k/uL Creatinine 0.39 L (0.52-1.04) mg/dL Glucose 133 H (74-99) mg/dL Urine Blood Small H (Negative) Urine Mucus Occasional H (None) /hpf H & H 03/24/21 Range/Units 19:39 Hgb 13.0 (11.4-16.0) gm/dL Hct 38.3 (34.0-46.0) % Result Diagrams: 03/24/21 19:39 03/24/21 19:39 Assessment and Plan (1) Fall Current Visit: Yes Status: Acute Code(s): W19.XXXA - UNSPECIFIED FALL, INITIAL ENCOUNTER SNOMED Code(s): 7686299 (2) Periprosthetic fracture of proximal end of femur Current Visit: Yes Status: Acute Code(s): M97.8XXA - PERIPROSTH FRACTURE AROUND OTHER INTERNAL PROSTH JOINT, INIT; Z96.649 - PRESENCE OF UNSPECIFIED ARTIFICIAL HIP JOINT SNOMED Code(s): 16540405062067347 Plan: 1. X-rays are reviewed revealing nondisplaced periprosthetic fracture of the left femur with total hip arthroplasty in good position and alignment. X-ray results are discussed with the patient and her daughter at bedside today. Nonoperative treatment is recommended at this time. Patient is to remain strictly nonweightbearing to the left lower extremity for at least 4 weeks. It is discussed that she may require surgical treatment in the future if the fracture were to displace. 2. Recommend physical therapy to work with the patient. 3. DVT prophylaxis with aspirin. 4. Appreciate input from medicine. 5. Because the patient will need to be nonweightbearing to the left lower extremity for an extended period of time the patient will likely require an ECF stay. All questions and concerns were addressed at bedside today. Patient is receptive to this plan.
[2021-03-25] MEDS: ASPIRIN 81 MG PO SCH (19:54)
[2021-03-26] MEDS: SODIUM CHLORIDE 0.9% 1,000 ML IV SCH ×2 (05:18→15:06)
[2021-03-26 07:25] VITALS: BP 134/85; PULSE 71; RESP 16; TEMP 97.6
[2021-03-26] MEDS: CARBIDOPA-LEVODOPA 25-250 MG 1 EACH TAB PO SCH ×2 (08:10→14:06)
[2021-03-26] MEDS: MIDODRINE 5 MG TAB PO SCH ×2 (08:10→15:07)
[2021-03-26] MEDS: ASPIRIN 81 MG PO SCH (08:11)
[2021-03-26] MEDS ORDERED: SERTRALINE 50 MG TAB PO SCH (09:00)
[2021-03-26] MEDS ORDERED: FAMOTIDINE 20 MG TAB PO SCH (09:00)
[2021-03-26] MEDS ORDERED: ENOXAPARIN 40 MG/0.4 ML SYRINGE SQ SCH (09:15)
--- NOTE | 2021-03-26 11:45 | P.DS ---
Providers Date of admission: 03/24/21 21:53 Expected date of discharge: 03/26/21 Attending physician: Raffy Rowland Primary care physician: Francoise Castrejon - [place] Diagnosis(es) (1) Fall Current Visit: Yes Status: Acute (2) Periprosthetic fracture of proximal end of femur Current Visit: Yes Status: Acute Hospital Course: This is an 75-year-old female who sustained a periprosthetic fracture of her left femur after a fall at home on 03/24/2021. The patient presented for evaluation in the emergency room and x-rays revealed a non-displaced periprosthetic fracture of the left femur with left total hip arthroplasty in good position and alignment. After discussion and consideration the patient and her family agree to proceed with nonoperative treatment at this time. Patient is admitted to [facility] on 03/24/2021. Labs and vital signs are stable on day of discharge. On day of discharge there is minimal soft tissue swelling to the hip and thigh. Patient has full foot and ankle motion without difficulty or pain. Calf is soft and nontender to palpation. Neurovascular status to the left lower extremity is intact. Patient is discharged to rehab in good condition. Please see med rec for accurate list of home medications. Patient Condition at Discharge: Stable Plan - Discharge Summary Discharge Rx Participant: No New Discharge Prescriptions: New Sennosides [Senokot] 2 tab PO DAILY PRN #60 tablet PRN Reason: Constipation Aspirin [Adult Low Dose Aspirin EC] 81 mg PO BID 30 Days #60 tablet.dr HYDROcodone/APAP 7.5-325MG [Nada 7.5-325] 1 tab PO Q4-6H PRN #30 tab PRN Reason: Pain No Action Sertraline [Zoloft] 50 mg PO DAILY Aspirin EC [Ecotrin Low Dose] 81 mg PO DAILY Midodrine HCl [ProAmatine] 10 mg PO TID Famotidine 20 mg PO DAILY Ergocalciferol (Vitamin D2) [Drisdol (50,000 Iu)] 1,250 mcg PO SA Carbidopa-Levodopa 25-250 mg [Sinemet 25-250] 1 tab PO QID Cyanocobalamin (Vitamin B-12) [Vitamin B-12] 1,000 mcg PO DAILY Discharge Medication List Aspirin EC [Ecotrin Low Dose] 81 mg PO DAILY 03/24/21 [History] Carbidopa-Levodopa 25-250 mg [Sinemet 25-250] 1 tab PO QID 03/24/21 [History] Cyanocobalamin (Vitamin B-12) [Vitamin B-12] 1,000 mcg PO DAILY 03/24/21 [History] Ergocalciferol (Vitamin D2) [Drisdol (50,000 Iu)] 1,250 mcg PO SA 03/24/21 [History] Famotidine 20 mg PO DAILY 03/24/21 [History] Midodrine HCl [ProAmatine] 10 mg PO TID 03/24/21 [History] Sertraline [Zoloft] 50 mg PO DAILY 03/24/21 [History] Aspirin [Adult Low Dose Aspirin EC] 81 mg PO BID 30 Days #60 tablet.dr 03/26/21 [Rx] HYDROcodone/APAP 7.5-325MG [Nada 7.5-325] 1 tab PO Q4-6H PRN #30 tab 03/26/21 [Rx] Sennosides [Senokot] 2 tab PO DAILY PRN #60 tablet 03/26/21 [Rx] Follow up Appointment(s)/Referral(s): Francoise Castrejon MD [Primary Care Provider] - 1-2 days [facility] [place], [NON-STAFF] - As Needed Raffy Rowland DO [Doctor of Osteopathic Medicine] - 1 Week Activity/Diet/Wound Care/Special Instructions: Strictly nonweightbearing to the left lower extremity with walker. Rest and ice the left lower extremity. Please follow-up with [facility] and call with any questions or concerns, . Discharge Disposition: TRANSFER TO SNF/ECF
--- NOTE | 2021-03-26 14:22 | P.PN ---
Subjective Progress Note Date: 03/26/21 HISTORY OF PRESENT ILLNESS This is a 75-year-old female patient of Dr. Castrejon with past medical history of chronic atrial fibrillation not on anticoagulation secondary to f requent falls, COPD, hypotension, Parkinson's disease, recurrent depression. Patient states that she was in her bedroom tripped and injured her left thigh area. She complains of significant pain to the area was unable to bare weight. She denies having any lightheadedness or dizziness. Denies loss of consciousness. Patient presented to [facility] emergency center for evaluatio n. CBC was unremarkable except for platelet count of 143. Hemoglobin was 13.0. Electrolytes within normal range. BUN 11 and creatinine 0.39. Blood sugar 133. Liver function tests were normal. Urinalysis negative for infection. Left hip and pelvis x-rays revealed acute fracture of the proximal femur below the lesser trochanter. Patient does have a left hip prosthesis. CAT scan of the brain and cervical spine revealed cerebral mild atrophy. Chronic small vessel ischemia. White matter disease is more noticeable than old exam. 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 No acute bony abnormality of the cervical spine. There is some spinal stenosis at C4-6 and C6-7. Chest x-ray reveals no acute cardiopulmonary disease. Patient was admitted to orthopedics on the [facility] floor. 03/26: Orthopedics is not planning for any surgical intervention. Patient is co mplaining of cramps in the left thigh area. No nausea or vomiting. Morris catheter in place which will plan to maintain a to patient is transferred to subacute rehab and this can be removed and monitored at that time. Patient has been afebrile, heart rate 71, blood pressure 134/85, pulse ox 96% on room air. Medication reconciliation has been reviewed and patient is cleared for medicine for discharge. REVIEW OF SYSTEMS Constitutional: No fever, no chills, no night sweats. No weight change. No weakness, fatigue or lethargy. No daytime sleepiness. EENT: No headache. No blurred vision or double vision, no loss of vision. No loss of Hearing, no ringing in the ears, no dizziness. No nasal drainage or congestion. No epistaxis. No sore throat. Lungs: No shortness of breath, cough, no sputum production. No wheezing. Cardiovascular: No chest pain, no lower extremity edema. No palpitations. No paroxysmal nocturnal dyspnea. No orthopnea. Denies lightheadedness or dizziness. No syncopal episodes. Abdominal: No abdominal pain. No nausea, vomiting. No diarrhea. No constipation. No bloody or tarry stools.. No loss of appetite. Genitourinary: No dysuria, increased frequency, urgency. No urinary retention. Musculoskeletal: No myalgias. No muscle weakness, no gait dysfunction, reports frequent falls. No back pain. No neck pain. Reports left femur pain. Integumentary: No wounds, no lesions. No rash or pruritus. No unusual bruising. No change in hair or nails. Neurologic: No aphasia. No facial droop. No change in mentation. No head injury. No headache. No paralysis. No paresthesia. Psychiatric: No depression. No anxiety. No mood swings. Endocrine: No abnormal blood sugars. No weight change. PHYSICAL EXAMINATION Gen: This is a 75-year-old female. Patient is resting in bed and appears to be comfortable and in no acute distress. HEENT: Head is atraumatic, normocephalic. Pupils equal, round. Sclerae is anicteric. NECK: Supple. No JVD. No lymphadenopathy. No thyromegaly. LUNGS: Clear to auscultation. No wheezes or rhonchi. No intercostal retractions. HEART: Regular rate and rhythm. No murmur. ABDOMEN: Soft. Bowel sounds are present. No masses. No tenderness. EXTREMITIES: No pedal edema. No calf tenderness. Dorsalis pedis palpable bilaterally. NEUROLOGICAL: Patient is awake, alert and oriented x3. Cranial nerves 2 through 12 are grossly intact. ASSESSMENT AND PLAN 1. Left femur fracture. Patient admitted to the orthopedic service. Continue [place] for pain. 2. History of atrial fibrillation not on anticoagulation secondary to frequent falls. 3. COPD, stable. 4. Hypotension. Continue Midodrine 10 mg 3 times daily with parameters. 5. Parkinson's disease. Continue Sinemet [id number] one 4 times daily. 6. Recurrent depression. Continue Zoloft 50 mg daily. 7. Gastroesophageal reflux disease and GI prophylaxis. Continue Pepcid 20 g daily. 8. DVT prophylaxis. 9. COVID-19 testing negative. Patient has been hospitalized during a pandemic. DISCHARGE PLAN [facility] for subacute rehab. Impression and plan of care have been directed as dictated by the signing physician. Leslie Jaramillo nurse practitioner acting as scribe for signing physician. Objective - Vital Signs Vital signs: Vital Signs Temp 97.6 F 03/26/21 07:24 Pulse 71 03/26/21 07:24 Resp 16 03/26/21 07:24 BP 134/85 03/26/21 07:24 Pulse Ox 96 03/26/21 07:24 Intake & Output 03/25/21 03/26/21 03/26/21 18:59 06:59 18:59 Output Total 500 200 Balance -500 -200 Output: Urine 500 200 Other: Voiding Method Indwelling Catheter - Labs CBC & Chem 7: 03/24/21 19:39 03/24/21 19:39
== END 2021-03-26 16:13 | DRG 536 ==
LOC: EC 19:05 → 4SSUR 21:53
PROVIDERS: ADMIT Orthopaedic Surgery; ATTEND Orthopaedic Surgery
DX: S72.002A Fracture of unspecified part of neck of left femur, initial encounter for closed fracture (principal); M97.02XA Periprosthetic fracture around internal prosthetic left hip joint, initial encounter; F33.9 Major depressive disorder, recurrent, unspecified; I48.20 Chronic atrial fibrillation, unspecified; W01.0XXA Fall on same level from slipping, tripping and stumbling without subsequent striking against object, initial encounter; Z91.81 History of falling; Y92.003 Bedroom of unspecified non-institutional (private) residence as the place of occurrence of the external cause; R29.6 Repeated falls; G20 Parkinson's disease; J44.9 Chronic obstructive pulmonary disease, unspecified; M48.02 Spinal stenosis, cervical region; Z20.822 Contact with and (suspected) exposure to COVID-19; Z79.82 Long term (current) use of aspirin; Z79.899 Other long term (current) drug therapy; Z83.3 Family history of diabetes mellitus; Z87.891 Personal history of nicotine dependence; Z96.642 Presence of left artificial hip joint; Z98.890 Other specified postprocedural states; Z98.1 Arthrodesis status
CPT/HCPCS: 36415; 70450; 71046; 72125; 73502; 80053; 81001; 83880; 85025; 87635; 93005; 96360; 99285

== ENCOUNTER 2021-11-03 10:46 | Inpatient (IN) | payer MEDICARE ==
[2021-11-03] MEDS ORDERED: ACETAMINOPHEN TAB 500 MG TAB PO STA (11:13)
--- NOTE | 2021-11-03 11:19 | ED ---
General Adult HPI - General Chief complaint: Extremity Injury, Lower Stated complaint: fall Time Seen by Provider: 11/03/21 11:05 Source: patient, EMS, RN notes reviewed, old records reviewed Mode of arrival: EMS Limitations: no limitations - History of Present Illness Initial comments: 76-year-old well-appearing female presents to the emergency room after falling off the commode this morning around 7:30. Patient states that she went to sit down and didn't realize she was not aligned properly and fell off to the right side landing on her right hip. She has been complaining of right hip pain and right femur pain, worse with movement. She was able to get up on her own. She does have a history of a left hip prosthesis, atrial fibrillation, COPD and Parkinson's. She states that she is not taking any blood thinners. She denies hitting her head, no loss of consciousness. -: hour(s) (4) Location: right, lower extremity (hip and femur) Severity scale (1-10): 8 Quality: aching, sharp Consistency: intermittent Improves with: immobilization Worsens with: movement Associated Symptoms: denies other symptoms Treatments Prior to Arrival: none - Related Data Home Medications Medication Instructions Recorded Confirmed Cyanocobalamin (Vitamin B-12) 1,000 mcg PO DAILY 03/24/21 11/03/21 [Vitamin B-12] Ergocalciferol (Vitamin D2) 1,250 mcg PO SA 03/24/21 11/03/21 [Drisdol (50,000 Iu)] Famotidine 20 mg PO DAILY 03/24/21 11/03/21 Midodrine HCl [ProAmatine] 10 mg PO TID 03/24/21 11/03/21 Aspirin 81 mg PO DAILY 11/03/21 11/03/21 Carbidopa/Levodopa [Sinemet 10-100 1 tab PO TID 11/03/21 11/03/21 mg Tablet] Sennosides [Senokot] 17.2 mg PO DAILY PRN 11/03/21 11/03/21 Sertraline [Zoloft] 25 mg PO DAILY 11/03/21 11/03/21 amantadine HCL [Symmetrel] 100 mg PO BID 11/03/21 11/03/21 Allergies Allergy/AdvReac Type Severity Reaction Status Date / Time No Known Allergies Allergy Verified 11/03/21 13:35 Review of Systems ROS Statement: Those systems with pertinent positive or pertinent negative responses have been documented in the HPI. ROS Other: All systems not noted in ROS Statement are negative. 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 History of Any Multi-Drug Resistant Organisms: None Reported Past Surgical History: Section, Joint Replacement, Tonsillectomy, Tubal Ligation Past Anesthesia/Blood Transfusion Reactions: No Reported Reaction Past Psychological History: No Psychological Hx Reported Smoking Status: Never smoker Past Alcohol Use History: None Reported Past Drug Use History: None Reported General Exam Limitations: no limitations General appearance: alert, in no apparent distress Head exam: Present: atraumatic, normocephalic, normal inspection Eye exam: Present: normal appearance, PERRL, EOMI. Absent: scleral icterus, conjunctival injection, periorbital swelling, periorbital tenderness ENT exam: Present: normal exam, normal oropharynx, mucous membranes moist Neck exam: Present: normal inspection, full ROM. Absent: tenderness, meningismus, lymphadenopathy, thyromegaly Respiratory exam: Present: normal lung sounds bilaterally. Absent: respiratory distress, wheezes, rales, rhonchi, stridor, chest wall tenderness, accessory muscle use Cardiovascular Exam: Present: regular rate, normal rhythm, normal heart sounds. Absent: systolic murmur, diastolic murmur, rubs, gallop, clicks, JVD GI/Abdominal exam: Present: soft, normal bowel sounds. Absent: distended, tenderness, guarding, rebound, rigid Right Hip exam: Present: tenderness, pelvic stability. Absent: swelling, abrasion, laceration, ecchymosis, deformity, shortening Upper Leg exam: Present: tenderness. Absent: swelling, abrasion, laceration, ecchymosis, deformity, erythema Knee exam: Present: full knee extension. Absent: tenderness, swelling Lower Leg exam: Present: normal inspection. Absent: tenderness, swelling Ankle exam: Present: normal inspection Foot/Toe exam: Present: normal inspection Neurovascular tendon exam: Present: no vascular compromise. Absent: abnormal cap refill, extremity cold to touch, foot drop Left Hip exam: Absent: tenderness Upper Leg exam: Absent: tenderness Knee exam: Present: full knee extension. Absent: tenderness Lower Leg exam: Absent: tenderness Ankle exam: Absent: tenderness Foot/Toe exam: Absent: tenderness Neurovascular tendon exam: Absent: no vascular compromise, extremity cold to touch, foot drop Back exam: Present: normal inspection. Absent: tenderness, CVA tenderness (R), CVA tenderness (L), paraspinal tenderness, vertebral tenderness, rash noted Expanded Back exam: Positive Straight Leg Raise: Right Neurological exam: Present: alert, oriented X3 Psychiatric exam: Present: normal affect, normal mood Skin exam: Present: warm, dry, intact, normal color. Absent: rash, cyanosis, diaphoretic Course Vital Signs 11/03/21 11/03/21 11/03/21 10:53 12:03 14:14 Temperature 98.1 F Pulse Rate 90 89 92 Respiratory 18 18 18 Rate Blood Pressure 171/117 139/84 139/84 O2 Sat by Pulse 96 99 95 Oximetry 11/03/21 17:18 Temperature Pulse Rate 81 Respiratory 18 Rate Blood Pressure 139/84 O2 Sat by Pulse 99 Oximetry - Reevaluation(s) Reevaluation #1: 11/03/21 16:[address] Daniels who recommended admission for nonsurgical evaluation of right hip fracture. Time: 16:12 Medical Decision Making - Medical Decision Making 76-year-old female presents to the emergency room after falling off the commode this morning around 7:30. She has been complaining of right hip pain and right femur pain, worse with movement. She does have a history of a left hip prosthesis, atrial fibrillation, COPD and Parkinson's. X-ray of the right femur shows a subtle bony irregularity along the lateral margin of the greater trochanter seen on AP view only. There is no evidence of vertebral compression collapse or malalignment seen on lumbar sacral spine x- ray. CT of the right hip shows a nondisplaced fracture of the right anterior acetabul um. I did discuss this case with Dr. Rowland, the patient will be admitted for continuation of care. Disposition Clinical Impression: Fracture of hip Disposition: ADMITTED IP TO THIS [facility] Condition: Good Decision Date: 11/03/21 Decision Time: 16:13
--- NOTE | 2021-11-03 12:39 | XR ---
EXAMINATION TYPE: XR femur RT, XR pelvis AP view DATE OF EXAM: 11/03/2021 COMPARISON: NONE HISTORY: 76-year-old female fall, pain TECHNIQUE: 2 views FINDINGS: Pelvis: Osteopenia. Partially visualized left-sided thoracoplasty. Bowel content partially obscures the sacru m. Lumbar spine reported separately. No displaced fracture seen. Right femur: Generalized muscle atrophy. Trace knee joint effusion is nonspecific. There are some underlying degen erative changes noted at the knee. Mild degenerative change right hip. There is subtle bony irregular ity and possible lucency along the lateral margin of the greater trochanter only seen on the AP view. Osteopenia. No displaced fracture. IMPRESSION (pelvis and right femur): 1. Subtle bony irregularity and lucency along the lateral margin of the greater trochanter only seen on the AP view of the femur. This may be projectional. Correlate for point tenderness here to exclude a subtle nondisplaced fracture. 2. Mild right hip OA. Additional degenerative changes of the right knee. A trace right knee joint eff usion is nonspecific, probably reactive. 3. Partially visualized left hip total arthroplasty. Osteopenia. No displaced fracture seen.
--- NOTE | 2021-11-03 12:41 | XR ---
EXAMINATION TYPE: XR lumbosacral spine min 4V DATE OF EXAM: 11/03/2021 Comparison: None Clinical History: 76-year-old female with pain after fall Findings: Prominent overlying bowel content. [facility] throughout the lumbar spine. Hypertrophic facet arthropathy t hroughout. Straightening of the normal lumbar lordosis. Mild multilevel disc interspace narrowing and endplate spondylosis. Vertebral body heights are preserved and alignment is maintained. Osteopenia. Impression: Extensive changes of DISH with bridging endplate spondylosis. Straightening of the normal lumbar lord osis. No vertebral compression collapse or malalignment seen.
--- NOTE | 2021-11-03 15:58 | CT ---
EXAMINATION TYPE: CT hip RT wo con DATE OF EXAM: 11/03/2021 COMPARISON: Pelvis and femur radiograph same day HISTORY: Fall, pain TECHNIQUE: CT of the right hip was performed without the administration of intravenous contrast. 2-D sagittal coronal reformats were obtained. 3-D post processing reconstructions were performed on an in dependent workstation for better evaluation of the osseous structures. CT DLP: 471 mGycm Automated exposure control for dose reduction was used. FINDINGS: Acute nondisplaced fracture of the right anterior acetabulum. No dislocation. Right superior and infe rior pubic rami appear intact. Right proximal femur appears intact. Moderate degenerative changes of the right femoral acetabular joint. Mild soft tissue swelling along the right inferior gluteal region. Small fat-containing right inguina l hernia. IMPRESSION: Nondisplaced fracture of the right anterior acetabulum.
[2021-11-03] MEDS ORDERED: ACETAMINOPHEN TAB 325 MG TAB PO PRN (16:14)
[2021-11-03] MEDS ORDERED: HYDROcodone/APAP 5-325MG 1 EACH TAB PO PRN (16:14)
[2021-11-03] MEDS ORDERED: NALOXONE 0.4 MG/ML 1 ML VIAL IV PRN (16:14)
[2021-11-03] MEDS ORDERED: SENNOSIDES 8.6 MG TAB PO PRN (16:54)
[2021-11-03] MEDS: CARBIDOPA-LEVODOPA 10-100 MG 1 EACH TAB PO SCH (20:25)
[2021-11-03] MEDS: MIDODRINE 5 MG TAB PO SCH (20:25)
[2021-11-04] MEDS: FAMOTIDINE 20 MG TAB PO SCH (07:26)
[2021-11-04] MEDS: MIDODRINE 5 MG TAB PO SCH ×3 (07:26→19:58)
[2021-11-04] MEDS: SERTRALINE 25 MG TAB PO SCH (07:26)
[2021-11-04] MEDS: ASPIRIN 81 MG PO SCH (07:26)
[2021-11-04] MEDS: CYANOCOBALAMIN 500 MCG TAB PO SCH (07:26)
[2021-11-04] MEDS: CARBIDOPA-LEVODOPA 10-100 MG 1 EACH TAB PO SCH ×3 (07:27→20:03)
[2021-11-04 12:50] LABS: Basophils % (A) 1 %; Eosinophils # (A) 0.2 k/uL (0-0.7); Eosinophils % (A) 3 %; HCT 42.7 % (34.0-46.0); HGB 12.9 gm/dL (11.4-16.0); Hypochromasia Slight; Lymphocytes % (A) 18 %; MCH 30.6 pg (25.0-35.0); MCHC 30.2 g/dL (31.0-37.0); MCV 101.3 fL (80.0-100.0); Mean Platelet Volume 10.3; Monocytes # (A) 0.3 k/uL (0-1.0); Monocytes % (A) 6 %; Neutrophils # (A) 3.9 k/uL (1.3-7.7); Neutrophils % (A) 71 %; Platelet Count 128 k/uL (150-450); RBC 4.22 m/uL (3.80-5.40); RDW 12.8 % (11.5-15.5); WBC 5.4 k/uL (3.8-10.6)
--- NOTE | 2021-11-04 12:58 | P.HPOR ---
History of Present Illness H&P Date: 11/04/21 This is a 76-year-old female who is admitted after a fall. Patient's past medical history is significant for atrial fibrillation, Parkinsons disease and COPD. Patient states that she had a fall on 11/03/2021 while trying to use the commode. Patient states that she slipped and fell onto her right hip. Patient states that she was able to get back up with the help of her daughter, who she lives with, but she had a lot of pain in the right hip. Patient presented to the emergency room and a hip CT revealed an acetabular fracture. Patient states that her pain is well-controlled when she is resting in bed. Patient denies any fever/chills, numbness, weakness, tingling, abdominal pain, shortness of breath or chest pain. Review of Systems See HPI. 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 History of Any Multi-Drug Resistant Organisms: None Reported Past Surgical History: Section, Joint Replacement, Tonsillectomy, Tubal Ligation Additional Past Surgical History / Comment(s): left humerus fx, right humerus fx, left hip fx Past Anesthesia/Blood Transfusion Reactions: No Reported Reaction Past Psychological History: No Psychological Hx Reported Smoking Status: Never smoker Past Alcohol Use History: None Reported Past Drug Use History: None Reported Medications and Allergies Home Medications Medication Instructions Recorded Confirmed Type Cyanocobalamin (Vitamin B-12) 1,000 mcg PO DAILY 03/24/21 11/03/21 History [Vitamin B-12] Ergocalciferol (Vitamin D2) 1,250 mcg PO SA 03/24/21 11/03/21 History [Drisdol (50,000 Iu)] Famotidine 20 mg PO DAILY 03/24/21 11/03/21 History Midodrine HCl [ProAmatine] 10 mg PO TID 03/24/21 11/03/21 History Aspirin 81 mg PO DAILY 11/03/21 11/03/21 History Carbidopa/Levodopa [Sinemet 10-100 1 tab PO TID 11/03/21 11/03/21 History mg Tablet] Sennosides [Senokot] 17.2 mg PO DAILY PRN 11/03/21 11/03/21 History Sertraline [Zoloft] 25 mg PO DAILY 11/03/21 11/03/21 History amantadine HCL [Symmetrel] 100 mg PO BID 11/03/21 11/03/21 History Allergies Allergy/AdvReac Type Severity Reaction Status Date / Time No Known Allergies Allergy Verified 11/03/21 13:35 Physical Examination On exam patient is resting comfortably in bed in no acute distress. Patient is alert and oriented 3. There is pain with passive and active range of motion of the right hip. Active range of motion of the right hip is limited due to pain. Skin is intact. There is no erythema or ecchymosis. Calf is soft and no ntender to palpation. Patient has full range of motion of the right foot and ankle. The right lower extremity is warm and well perfused. Neurovascular status and circulatory status are intact. Results The CT report of the right hip reveals: The acute nondisplaced fracture of the right anterior acetabulum involves both anterior and posterior columns with a vertical component extending up the right iliac bone and out of the [id number], as well as nondisplaced fracture line extending anteriorly to the superior pubic ramus. X-ray report of the lumbar spine reveals: Extensive changes of DISH with bridging endplate spondylosis. Straightening of the normal lumbar lordosis. No vertebral compression collapse or malalignment seen. X-ray report of the pelvis and right femur reveal: 1. Subtle bony irregularity and lucency along the lateral margin of the greater trochanter only seen on the AP view of the femur. This may be projectional. Correlate for point tenderness here to exclude a subtle nondisplaced fracture. 2. Mild right hip OA. Additional degenerative changes of the right knee. A trace right knee joint effusion is nonspecific, probably reactive. 3. Partially visualized left hip total arthroplasty. Osteopenia. No displaced fracture seen. - Labs Result Diagrams: 11/04/21 12:23 Assessment and Plan (1) Fracture closed, acetabulum Current Visit: Yes Status: Acute Code(s): S32.409A - UNSP FRACTURE OF UNSP ACETABULUM, INIT FOR CLOS FX SNOMED Code(s): 77740989 (2) Fall Current Visit: No Status: Acute Code(s): W19.XXXA - UNSPECIFIED FALL, I NITIAL ENCOUNTER SNOMED Code(s): 2289461 Plan: 1. 50% weightbearing to the right lower extremity with a walker. 2. Recommend physical therapy for mobilization. 3. Continue pain control. 4. Appreciate input from internal medicine. 5. Planning for discharge home with home care or to the ECF in the next 24-48 hours.
[2021-11-04 13:07] LABS: ALT 14 U/L (4-34); AST 22 U/L (14-36); African American GFR (CKD) >90 (>60 ml/min/1.73 sqM); Albumin 4.1 g/dL (3.5-5.0); Albumin/Globulin Ratio 1.2; Alkaline Phosphatase 63 U/L (38-126); Anion Gap 8 mmol/L; Blood Urea Nitrogen 17 mg/dL (7-17); Calcium 9.2 mg/dL (8.4-10.2); Carbon Dioxide 29 mmol/L (22-30); Chloride 103 mmol/L (98-107); Creatine Kinase 80 U/L (30-135); Globulin 3.3 g/dL; Glucose 112 mg/dL (74-99); Non-African American GFR(CKD) >90 (>60 ml/min/1.73 sqM); Potassium 3.5 mmol/L (3.5-5.1); Sodium 140 mmol/L (137-145); Total Bilirubin 1.1 mg/dL (0.2-1.3); Total Protein 7.4 g/dL (6.3-8.2)
--- NOTE | 2021-11-04 16:55 | P.CONS ---
History of Present Illness - Reason for Consult Consult date: 11/04/21 - Chief Complaint FAll, right hip pain - History of Present Illness History of present illness 76 years old female patient of Dr. Castrejon with past medical history of paroxysmal atrial fibrillation, Parkinson disease, COPD, history of osteoporosis comes in after she had a fall on 11/03 when she was trying to use the commade.. Patient was trying to use the bathroom at night when she slipped off the commode leading to the pain in her right hip. On evaluation in the ED patient was noted to have nondisplaced right acetabular fracture. Review patient's WBC is 5.4 hemoglobin 12.9 MCV 101, crit low at 128 creatinine 0.46 glucose 112. Patient on evaluation has some pain in the right hip but denies any chest pain or shortness of breath. She is functionally active and uses a walker at home. She lives with her daughter who helps her with households. Orthopedic surgery is recommended 50% weightbearing on the right lower extremity and recommended physical therapy for mobilization. Plan to discharge home or extended care facility in the next 24-48 hours. ROS Constitutional: Denies chills, Denies fever, Denies lethargy, Denies malaise, Denies poor appetite, Denies weakness, Denies weight loss Eyes: denies decreased vision, denies diplopia, denies discharge, denies pain Ears: deny: decreased hearing Ears, nose, mouth and throat: Denies dental pain, Denies headache, Denies nasal discharge, Denies nose pain Cardiovascular: Denies chest pain, Denies decreased exercise tolerance, Denies edema, Denies high blood pressure, Denies irregular heart beat, Denies palpitations, Denies paroxysmal nocturnal dyspnea, Denies rapid heart beat, Denies shortness of breath Respiratory: Denies congestion, Denies cough, Denies cough with sputum, Denies dyspnea, Denies home oxygen, Denies wheezing Gastrointestinal: Denies abdominal pain, Denies change in bowel habits, Denies coffee ground emesis, Denies early satiety, Denies excessive gas, Denies hea rtburn, Denies hematemesis, Denies hematochezia, Denies loss of appetite, Denies nausea, Denies vomiting Genitourinary: Denies dysuria, Denies flank pain, Denies kidney stones, Denies menorrhagia, Denies urgency, Denies urinary frequency Musculoskeletal: Endorses gait dysfunction, endorses limitation of motion, Denies morning stiffness, Denies muscle cramps endorses right hip Integumentary: Denies rash, Denies wounds, Denies brittle nails, Denies change in hair/nails, Denies darkening of skin Neurological: Denies balance difficulties, Denies change in speech, Denies double vision, Denies gait dysfunction, Denies loss of vision, Denies motor disturbance, Denies numbness, Denies paralysis, Denies paresthesias, Denies seizures Psychiatric: Denies anxiety, Denies depression Endocrine: Denies excessive sweating, Denies excessive thirst, Denies high blood sugars, Denies palpitations Hematologic/Lymphatic: Denies easy bruising, Denies lymphadenopathy Social history Non smoker Non alcohol use No illicit drug use uses a walker at home Family history Mother- doesn't know much about her mother as she was raised by her grandparents Father had diabetes in the 60s Brother and sisters no medical problem that patient no Patient has one daughter no medical condition Physical exam - Constitutional General appearance: cooperative, no acute distress, thin - EENT Eyes: anicteric sclerae, PERRLA, normal appearance ENT: hearing grossly normal - Neck Neck: no lymphadenopathy, normal ROM, no other, no rigidity, no stridor, no thyromegaly - Respiratory Respiratory: bilateral: CTA, negative: diminished, dullness, rales, rhonchi - Cardiovascular Rhythm: regular Heart sounds: normal: S1, S2 Abnormal Heart Sounds: no systolic murmur, no diastolic murmur, no rub, no S3 Gallop, no S4 Gallop, no click, no other - Gastrointestinal General gastrointestinal: normal bowel sounds, soft nontender - Integumentary Integumentary: no rash - Neurologic Neurologic no sensorimotor deficit - Musculoskeletal Musculoskeletal: Pain involving the right hip worse on motion. 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 I'll be happy to assist inpatient medical needs as necessary 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 History of Any Multi-Drug Resistant Organisms: None Reported Past Surgical History: Section, Joint Replacement, Tonsillectomy, Tubal Ligation Additional Past Surgical History / Comment(s): left humerus fx, right humerus fx, left hip fx Past Anesthesia/Blood Transfusion Reactions: No Reported Reaction Past Psychological History: No Psychological Hx Reported Smoking Status: Never smoker Past Alcohol Use History: None Reported Past Drug Use History: None Reported Medications and Allergies Home Medications Medication Instructions Recorded Confirmed Type Cyanocobalamin (Vitamin B-12) 1,000 mcg PO DAILY 03/24/21 11/03/21 History [Vitamin B-12] Ergocalciferol (Vitamin D2) 1,250 mcg PO SA 03/24/21 11/03/21 History [Drisdol (50,000 Iu)] Famotidine 20 mg PO DAILY 03/24/21 11/03/21 History Midodrine HCl [ProAmatine] 10 mg PO TID 03/24/21 11/03/21 History Aspirin 81 mg PO DAILY 11/03/21 11/03/21 History Carbidopa/Levodopa [Sinemet 10-100 1 tab PO TID 11/03/21 11/03/21 History mg Tablet] Sennosides [Senokot] 17.2 mg PO DAILY PRN 11/03/21 11/03/21 History Sertraline [Zoloft] 25 mg PO DAILY 11/03/21 11/03/21 History amantadine HCL [Symmetrel] 100 mg PO BID 11/03/21 11/03/21 History Allergies Allergy/AdvReac Type Severity Reaction Status Date / Time No Known Allergies Allergy Verified 11/03/21 13:35 Physical Exam Vitals: Vital Signs Temp Pulse Pulse Resp BP BP Pulse Ox 11/04/21 07:33 98.5 F 72 17 129/77 96 11/04/21 02:08 98.4 F 74 17 128/70 96 11/03/21 19:16 98.7 F 16 95/60 97 11/03/21 18:47 98.6 F 17 151/85 96 11/03/21 17:18 81 18 139/84 99 11/03/21 14:14 92 18 139/84 95 Intake and Output 11/03/21 11/04/21 11/04/21 22:59 06:59 14:59 Output Total 200 Balance -200 Output: Urine 200 Other: Voiding Method External Catheter External Catheter # Voids 1 Weight 58.287 kg Results CBC & Chem 7: 11/04/21 12:23 11/04/21 12:23
[2021-11-05] MEDS: CYANOCOBALAMIN 500 MCG TAB PO SCH (08:36)
[2021-11-05] MEDS: CARBIDOPA-LEVODOPA 10-100 MG 1 EACH TAB PO SCH ×3 (08:36→19:58)
[2021-11-05] MEDS: ASPIRIN 81 MG PO SCH (08:36)
[2021-11-05] MEDS: FAMOTIDINE 20 MG TAB PO SCH (08:36)
[2021-11-05] MEDS: MIDODRINE 5 MG TAB PO SCH ×4 (08:36→19:52)
[2021-11-05] MEDS: SERTRALINE 25 MG TAB PO SCH (08:37)
--- NOTE | 2021-11-05 08:45 | P.PN ---
Subjective Progress Note Date: 11/05/21 This is a 76-year-old female who was admitted after a fall in which she sustained a right acetabular fracture. Patient is seen and evaluated at bedside today. Patient states that she was able to take some steps with physical therapy. Patient states that the only time she has pain as if she actively elev ates the right thigh. Otherwise, patient denies any new complaints today. Objective - Vital Signs Vital signs: Vital Signs Temp 98.3 F 11/05/21 03:00 Pulse 72 11/05/21 03:00 Resp 17 11/05/21 03:00 BP 160/89 11/05/21 03:00 Pulse Ox 99 11/05/21 03:00 Intake & Output 11/04/21 11/05/21 11/05/21 18:59 06:59 18:59 Output Total 600 450 Balance -600 -450 Output: Urine 600 450 Other: Voiding Method External Catheter # Voids 1 - Exam On exam patient is lying comfortably in bed in no acute distress. Patient is alert and oriented 3. Patient is able to actively elevate the right thigh with some discomfort. There is no significant swelling. No erythema or ecchymosis. Calf is soft and nontender to palpation. Sensation intact. Neurovascular status and circulatory status are intact. - Labs CBC & Chem 7: 11/04/21 12:23 11/04/21 12:23 Labs: Abnormal Lab Results - Last 24 Hours (Table) 11/04/21 11/04/21 Range/Units 12:23 12:23 MCV 101.3 H (80.0-100.0) fL MCHC 30.2 L (31.0-37.0) g/dL Plt Count 128 L (150-450) k/uL Creatinine 0.46 L (0.52-1.04) mg/dL Glucose 112 H (74-99) mg/dL Assessment and Plan (1) Fracture closed, acetabulum Current Visit: Yes Status: Acute Code(s): S32.409A - UNSP FRACTURE OF UNSP ACETABULUM, INIT FOR CLOS FX SNOMED Code(s): 32264662 (2) Fall Current Visit: No Status: Acute Code(s): W19.XXXA - UNSPECIFIED FALL, INITIAL ENCOUNTER SNOMED Code(s): 7371330 Plan: 1. 50% weightbearing to the right lower extremity with a walker. 2. Recommend physical therapy for mobilization. 3. Continue pain control. 4. Appreciate input from internal medicine. 5. Planning for discharge home with home care later today or tomorrow.
--- NOTE | 2021-11-05 16:48 | P.PN ---
Subjective Progress Note Date: 11/05/21 History of present illness 76 years old female patient of Dr. Castrejon with past medical history of paroxysmal atrial fibrillation, Parkinson disease, COPD, history of osteoporosis comes in after she had a fall on 11/03 when she was trying to use the commade.. Patient was trying to use the bathroom at night when she slipped off the commode leading to the pain in her right hip. On evaluation in the ED patient was noted to have nondisplaced right acetabular fracture. Review patient's WBC is 5.4 hemoglobin 12.9 MCV 101, crit low at 128 creatinine 0.46 glucose 112. Patient on evaluation has some pain in the right hip but denies any chest pain or shortness of breath. She is functionally active and uses a walker at home. She lives with her daughter who helps her with households. Orthopedic surgery is recommended 50% weightbearing on the right lower extremity and recommended physical therapy for mobilization. Plan to discharge home or extended care facility in the next 24-48 hours. 11/05 patient examined bedside. Denies any chest pain, shortness of breath, palpitation. Pain is controlled patient sitting comfortably in the chair is able to lift her leg. It is reviewed patient was afebrile pulse 110 respiratory rate 18 blood pressure 143/93 oxygen saturation 97% on room air. Patient is a possible discharge to subacute rehab or home in the next 24-48 hours ROS Constitutional: Denies chills, Denies fever, Denies lethargy, Denies malaise, Denies poor appetite, Denies weakness, Denies weight loss Eyes: denies decreased vision, denies diplopia, denies discharge, denies pain Ears: deny: decreased hearing Ears, nose, mouth and throat: Denies dental pain, Denies headache, Denies nasal discharge, Denies nose pain Cardiovascular: Denies chest pain, Denies decreased exercise tolerance, Denies edema, Denies high blood pressure, Denies irregular heart beat, Denies palpitati ons, Denies paroxysmal nocturnal dyspnea, Denies rapid heart beat, Denies shortness of breath Respiratory: Denies congestion, Denies cough, Denies cough with sputum, Denies dyspnea, Denies home oxygen, Denies wheezing Gastrointestinal: Denies abdominal pain, Denies change in bowel habits, Denies coffee ground emesis, Denies early satiety, Denies excessive gas, Denies heartburn, Denies hematemesis, Denies hematochezia, Denies loss of appetite, Denies nausea, Denies vomiting Genitourinary: Denies dysuria, Denies flank pain, Denies kidney stones, Denies menorrhagia, Denies urgency, Denies urinary frequency Musculoskeletal: Endorses gait dysfunction, endorses limitation of motion, Denies morning stiffness, Denies muscle cramps endorses right hip Integumentary: Denies rash, Denies wounds, Denies brittle nails, Denies change in hair/nails, Denies darkening of skin Neurological: Denies balance difficulties, Denies change in speech, Denies double vision, Denies gait dysfunction, Denies loss of vision, Denies motor disturbance, Denies numbness, Denies paralysis, Denies paresthesias, Denies se izures Physical exam - Constitutional General appearance: cooperative, no acute distress, thin - EENT Eyes: anicteric sclerae, PERRLA, normal appearance ENT: hearing grossly normal - Neck Neck: no lymphadenopathy, normal ROM, no other, no rigidity, no stridor, no thyromegaly - Respiratory Respiratory: bilateral: CTA, negative: diminished, dullness, rales, rhonchi - Cardiovascular Rhythm: regular Heart sounds: normal: S1, S2 Abnormal Heart Sounds: no systolic murmur, no diastolic murmur, no rub, no S3 Gallop, no S4 Gallop, no click, no other - Gastrointestinal General gastrointestinal: normal bowel sounds, soft nontender - Integumentary Integumentary: no rash - Neurologic Neurologic no sensorimotor deficit - Musculoskeletal Musculoskeletal: Pain involving the right hip worse on motion. Patient able to lift her leg can move her legs without any difficulty stopping neurovascular status is intact - Psychiatric Psychiatric: A&O x's 3, appropriate affect Assessment and plan Right acetabular fracture -No plan for surgery with 50% weightbearing on the right lower extremity -PTOT consult with possible rehab placement to help with gait instability Tachycardia - sinus rhythm - encourage fluid Idiopathic thrombocytopenia -Continue to monitor History of Parkinson disease -Continue Sinemet 10/101 tablet 3 times a day -Continue amantadine 100 mg twice daily Autonomic hypotension -Continue midodrine 10 mg 3 times a day History of paroxysmal atrial fibrillation -Patient not on any rate controlling medication or any blood thinner -Currently normal sinus rhythm Depression -Continue Zoloft and 25 mg by mouth daily DVT prophylaxis -Heparin every 12 Objective - Vital Signs Vital signs: Vital Signs Temp 99.1 F 11/05/21 14:00 Pulse 103 H 11/05/21 15:12 Resp 18 11/05/21 14:00 BP 125/88 11/05/21 15:12 Pulse Ox 97 11/05/21 14:00 Intake & Output 11/04/21 11/05/21 11/05/21 18:59 06:59 18:59 Output Total 600 450 Balance -600 -450 Output: Urine 600 450 Other: Voiding Method External Catheter # Voids 1 - Labs CBC & Chem 7: 11/04/21 12:23 11/04/21 12:23
[2021-11-05] MEDS ORDERED: LOSARTAN 50 MG TAB PO SCH (22:00)
[2021-11-06 07:25] VITALS: BP 125/76; PULSE 81; RESP 16; TEMP 97.9
[2021-11-06] MEDS: ASPIRIN 81 MG PO SCH (08:00)
[2021-11-06] MEDS: FAMOTIDINE 20 MG TAB PO SCH (08:00)
[2021-11-06] MEDS: CYANOCOBALAMIN 500 MCG TAB PO SCH (08:00)
[2021-11-06] MEDS: MIDODRINE 5 MG TAB PO SCH (08:01)
[2021-11-06] MEDS: CARBIDOPA-LEVODOPA 10-100 MG 1 EACH TAB PO SCH (08:01)
[2021-11-06] MEDS: SERTRALINE 25 MG TAB PO SCH (08:01)
--- NOTE | 2021-11-06 08:12 | P.DS ---
Providers Date of admission: 11/03/21 16:34 Expected date of discharge: 11/06/21 Attending physician: Raffy Rowland Consults: 11/04/21 13:17 Consult Physician Routine Consulting Provider: Ruben Shepherd Consult Reason/Comments: medical management Do you want consulting provider notified?: Yes Primary care physician: Francoise Lucía - Discharge Diagnosis(es) (1) Fracture closed, acetabulum Current Visit: Yes Status: Acute (2) Fall Current Visit: No Status: Acute Hospital Course: The patient is a 76-year-old female who is admitted after a fall at home. Patient's past medical history is significant for atrial fibrillation, Parkinsons disease and COPD. Patient states that she had a fall on 11/03/2021 while trying to use the commode. Patient states that she slipped and fell onto her right hip. Patient states that she was able to get back up with the help of her daughter, who she lives with, but she had a lot of pain in the right hip. Patient presented to the emergency room and a hip CT revealed an acetabular fracture. Patient states that her pain is well-controlled when she is resting in bed. The patient was evaluated by physical therapy and they recommended skilled rehab. On the day of discharge, patient is lying comfortably in bed in no acute distress. Patient is alert and oriented 2. Patient is able to actively elevate the right thigh with some discomfort. There is no significant swelling. No erythema or ecchymosis. Calf is soft and nontender to palpation. Sensation intact. Neurovascular status and circulatory status are intact. She is orthopedically stable for discharge to skilled rehab today. Patient Condition at Discharge: Stable Plan - Discharge Summary New Discharge Prescriptions: New HYDROcodone/APAP 5-325MG [[place] 5-325] 1 tab PO Q6HR PRN #30 tab PRN Reason: Pain Sennosides [Senokot] 2 tab PO DAILY PRN #60 tablet PRN Reason: Constipation No Action Sertraline [Zoloft] 25 mg PO DAILY Aspirin 81 mg PO DAILY amantadine HCL [Symmetrel] 100 mg PO BID Midodrine HCl [ProAmatine] 10 mg PO TID Famotidine 20 mg PO DAILY Ergocalciferol (Vitamin D2) [Drisdol (50,000 Iu)] 1,250 mcg PO SA Cyanocobalamin (Vitamin B-12) [Vitamin B-12] 1,000 mcg PO DAILY Carbidopa/Levodopa [Sinemet 10-100 mg Tablet] 1 tab PO TID Sennosides [Senokot] 17.2 mg PO DAILY PRN PRN Reason: Constipation Discharge Medication List Cyanocobalamin (Vitamin B-12) [Vitamin B-12] 1,000 mcg PO DAILY 03/24/21 [History] Ergocalciferol (Vitamin D2) [Drisdol (50,000 Iu)] 1,250 mcg PO SA 03/24/21 [History] Famotidine 20 mg PO DAILY 03/24/21 [History] Midodrine HCl [ProAmatine] 10 mg PO TID 03/24/21 [History] Aspirin 81 mg PO DAILY 11/03/21 [History] Carbidopa/Levodopa [Sinemet 10-100 mg Tablet] 1 tab PO TID 11/03/21 [History] Sennosides [Senokot] 17.2 mg PO DAILY PRN 11/03/21 [History] Sertraline [Zoloft] 25 mg PO DAILY 11/03/21 [History] amantadine HCL [Symmetrel] 100 mg PO BID 11/03/21 [History] HYDROcodone/APAP 5-325MG [[place] 5-325] 1 tab PO Q6HR PRN #30 tab 11/05/21 [Rx] Sennosides [Senokot] 2 tab PO DAILY PRN #60 tablet 11/05/21 [Rx] Follow up Appointment(s)/Referral(s): Francoise Castrejon MD [Primary Care Provider] - 1-2 days Glenny Burger [NON-STAFF] - 1-2 Days Raffy Rowland DO [Doctor of Osteopathic Medicine] - 10 Days Activity/Diet/Wound Care/Special Instructions: 50% weightbearing right lower extremity. Please follow up with [facility] and call with any questions or concerns, . Discharge Disposition: TRANSFER TO SNF/ECF
--- NOTE | 2021-11-06 16:08 | P.PN ---
Subjective Progress Note Date: 11/06/21 History of present illness 76 years old female patient of Dr. Castrejon with past medical history of paroxysmal atrial fibrillation, Parkinson disease, COPD, history of osteoporosis comes in after she had a fall on 11/03 when she was trying to use the commade.. Patient was trying to use the bathroom at night when she slipped off the commode leading to the pain in her right hip. On evaluation in the ED patient was noted to have nondisplaced right acetabular fracture. Review patient's WBC is 5.4 hemoglobin 12.9 MCV 101, crit low at 128 creatinine 0.46 glucose 112. Patient on evaluation has some pain in the right hip but denies any chest pain or shortness of breath. She is functionally active and uses a walker at home. She lives with her daughter who helps her with households. Orthopedic surgery is recommended 50% weightbearing on the right lower extremity and recommended physical therapy for mobilization. Plan to discharge home or extended care facility in the next 24-48 hours. 11/05 patient examined bedside. Denies any chest pain, shortness of breath, palpitation. Pain is controlled patient sitting comfortably in the chair is able to lift her leg. It is reviewed patient was afebrile pulse 110 respiratory rate 18 blood pressure 143/93 oxygen saturation 97% on room air. Patient is a possible discharge to subacute rehab or home in the next 24-48 hours and examined at that bedside. Patient had increased blood pressure yesterday for which losartan was initiated 50 mg by mouth daily blood pressure control at the current regimen. We'll hold midodrine with parameters to restart in case patient's blood pressure drops. Patient's labs are reviewed. Patient is stable to be discharged to subacute rehab. Medication refills spelled ROS Constitutional: Denies chills, Denies fever, Denies lethargy, Denies malaise, Denies poor appetite, Denies weakness, Denies weight loss Eyes: denies decreased vision, denies diplopia, denies discharge, denies pain Ears: deny: decreased hearing Ears, nose, mouth and throat: Denies dental pain, Denies headache, Denies nasal discharge, Denies nose pain Cardiovascular: Denies chest pain, Denies decreased exercise tolerance, Denies edema, Denies high blood pressure, Denies irregular heart beat, Denies palpitations, Denies paroxysmal nocturnal dyspnea, Denies rapid heart beat, Denies shortness of breath Respiratory: Denies congestion, Denies cough, Denies cough with sputum, Denies dyspnea, Denies home oxygen, Denies wheezing Gastrointestinal: Denies abdominal pain, Denies change in bowel habits, Denies coffee ground emesis, Denies early satiety, Denies excessive gas, Denies heartburn, Denies hematemesis, Denies hematochezia, Denies loss of appetite, Denies nausea, Denies vomiting Genitourinary: Denies dysuria, Denies flank pain, Denies kidney stones, Denies menorrhagia, Denies urgency, Denies urinary frequency Musculoskeletal: Endorses gait dysfunction, endorses limitation of motion, Denies morning stiffness, Denies muscle cramps endorses right hip Physical exam - Constitutional General appearance: cooperative, no acute distress, thin - EENT Eyes: anicteric sclerae, PERRLA, normal appearance ENT: hearing grossly normal - Neck Neck: no lymphadenopathy, normal ROM, no other, no rigidity, no stridor, no thyromegaly - Respiratory Respiratory: bilateral: CTA, negative: diminished, dullness, rales, rhonchi - Cardiovascular Rhythm: regular Heart sounds: normal: S1, S2 Abnormal Heart Sounds: no systolic murmur, no diastolic murmur, no rub, no S3 Gallop, no S4 Gallop, no click, no other - Gastrointestinal General gastrointestinal: normal bowel sounds, soft nontender - Integumentary Integumentary: no rash - Neurologic Neurologic no sensorimotor deficit - Musculoskeletal Musculoskeletal: Pain involving the right hip worse on motion. Patient able to lift her leg can move her legs without any difficulty stopping neurovascular status is intact - Psychiatric Psychiatric: A&O x's 3, appropriate affect Assessment and plan Right acetabular fracture -No plan for surgery with 50% weightbearing on the right lower extremity Hypertension -Losartan initiated 50 mg by mouth daily Tachycardia - sinus rhythm - encourage fluid Idiopathic thrombocytopenia -Continue to monitor History of Parkinson disease -Continue Sinemet 10/101 tablet 3 times a day -Continue amantadine 100 mg twice daily Autonomic hypotension -Hold midodrine 10 mg 3 times a day, can start if systolic less than 90 History of paroxysmal atrial fibrillation -Patient not on any rate controlling medication or any blood thinner -Currently normal sinus rhythm Depression -Continue Zoloft and 25 mg by mouth daily DVT prophylaxis -Heparin every 12 Objective - Vital Signs Vital signs: Vital Signs Temp 97.9 F 11/06/21 07:25 Pulse 81 11/06/21 07:25 Resp 16 11/06/21 07:25 BP 125/76 11/06/21 07:25 Pulse Ox 97 11/06/21 07:25 Intake & Output 11/05/21 11/06/21 11/06/21 18:59 06:59 18:59 Other: Voiding Method External Catheter # Voids 1 1 - Labs CBC & Chem 7: 11/04/21 12:23 11/04/21 12:23
[2021-11-09] MEDS ORDERED: ERGOCALCIFEROL 1,250 MCG (50,000 IU) CAPSULE PO SCH (09:00)
== END 2021-11-06 14:05 | DRG 536 ==
LOC: EC 10:46 → 4SSUR 16:34
PROVIDERS: ADMIT Orthopaedic Surgery; ATTEND Orthopaedic Surgery
DX: S32.401A Unspecified fracture of right acetabulum, initial encounter for closed fracture (principal); D69.3 Immune thrombocytopenic purpura; W18.12XA Fall from or off toilet with subsequent striking against object, initial encounter; W18.11XA Fall from or off toilet without subsequent striking against object, initial encounter; Y92.009 Unspecified place in unspecified non-institutional (private) residence as the place of occurrence of the external cause; M81.0 Age-related osteoporosis without current pathological fracture; J44.9 Chronic obstructive pulmonary disease, unspecified; F32.A Depression, unspecified; G20 Parkinson's disease; I10 Essential (primary) hypertension; I48.0 Paroxysmal atrial fibrillation; Z79.82 Long term (current) use of aspirin; Z79.899 Other long term (current) drug therapy; Z96.642 Presence of left artificial hip joint; Z98.51 Tubal ligation status; Z90.89 Acquired absence of other organs; Z98.890 Other specified postprocedural states; Z20.822 Contact with and (suspected) exposure to COVID-19; I95.89 Other hypotension; Z83.3 Family history of diabetes mellitus
CPT/HCPCS: 72110; 72170; 80053; 82550; 84443; 85025; 87635; 99285

== ENCOUNTER 2021-11-23 15:47 | Inpatient (IN) | payer MEDICARE ==
--- NOTE | 2021-11-23 16:02 | ED ---
General Adult HPI - General Chief complaint: Shortness of Breath Stated complaint: KELSY Time Seen by Provider: 11/23/21 15:55 Source: patient, EMS Mode of arrival: EMS Limitations: no limitations - History of Present Illness Initial comments: Patient presents to the ED by ambulance from her fdc for evaluation. Per fdc report, the patient has been generally weak and lethargic for the past 2 days. Patient is normally on 2-4 L of home O2, and her oxygen demand has increased over the past couple of days as well. Patient is reportedly not vaccinated against Covid, but she recently tested negative for Covid. Patient admits to feeling mildly dyspneic and lightheaded. Patient also admits to having a cough for the past 4 days. Patient denies having any pain. Patient denies having any other symptoms or complaints. Patient denies known fever or chills, headache, focal numbness/weakness/neuro deficit, neck stiffness/pain, sore throat, chest pain or pressure, hemoptysis, palpitations, syncope, abdominal pain, nausea/vomiting/diarrhea, bloody or melanotic stool, dysuria/hematuria/urinary frequency/urinary symptoms, decreased urine output, leg or calf swelling or pain, or any other symptoms or complaints. - Related Data Home Medications Medication Instructions Recorded Confirmed Cyanocobalamin (Vitamin B-12) 1,000 mcg PO DAILY@0900 03/24/21 11/23/21 [Vitamin B-12] Ergocalciferol (Vitamin D2) 1,250 mcg PO SA@0900 03/24/21 11/23/21 [Drisdol (50,000 Iu)] Famotidine 20 mg PO DAILY@0600 03/24/21 11/23/21 Aspirin 81 mg PO DAILY@0900 11/03/21 11/23/21 Carbidopa/Levodopa [Sinemet 10-100 1 tab PO TID@0600,1400,2200 11/03/21 11/23/21 mg Tablet] Sennosides [Senokot] 17.2 mg PO DAILY PRN 11/03/21 11/23/21 Sertraline [Zoloft] 25 mg PO HS@2100 11/03/21 11/23/21 amantadine HCL [Symmetrel] 100 mg PO BID@0900,209911/03/21 11/23/21 Losartan [Cozaar] 50 mg PO HS@2100 11/23/21 11/23/21 Midodrine HCl [ProAmatine] 10 mg PO TID@0600,1400,2200 11/23/21 11/23/21 Previous Rx's Medication Instructions Recorded HYDROcodone/APAP 5-325MG [Shelley 1 tab PO Q6HR PRN #30 tab 11/05/21 5-325] Allergies Allergy/AdvReac Type Severity Reaction Status Date / Time No Known Allergies Allergy Verified 11/23/21 18:20 Review of Systems ROS Statement: Those systems with pertinent positive or pertinent negative responses have been documented in the HPI. ROS Other: All systems not noted in ROS Statement are negative. 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 History of Any Multi-Drug Resistant Organisms: None Reported Past Surgical History: Section, Joint Replacement, Tonsillectomy, Tubal Ligation Additional Past Surgical History / Comment(s): left humerus fx, right humerus fx, left hip fx Past Anesthesia/Blood Transfusion Reactions: No Reported Reaction Past Psychological History: No Psychological Hx Reported Smoking Status: Never smoker Past Alcohol Use History: None Reported Past Drug Use History: None Reported General Exam Limitations: no limitations General appearance: alert, in no apparent distress Head exam: Present: atraumatic, normocephalic Eye exam: Present: normal appearance, PERRL, EOMI ENT exam: Present: mucous membranes moist Neck exam: Present: other (Trachea is in midline). Absent: tenderness, meningismus Respiratory exam: Present: normal lung sounds bilaterally. Absent: respiratory distress, wheezes, rales, rhonchi, stridor Cardiovascular Exam: Present: regular rate, normal rhythm, normal heart sounds, other (Normal radial pulses bilaterally) GI/Abdominal exam: Present: soft. Absent: distended, tenderness, guarding Extremities exam: Present: other (Negative Homans sign bilaterally). Absent: tenderness, pedal edema, calf tenderness Neurological exam: Present: alert, oriented X3, CN II-XII intact. Absent: motor sensory deficit Psychiatric exam: Present: normal affect, normal mood Skin exam: Present: warm, dry, intact, normal color Course Vital Signs 11/23/21 11/23/21 11/23/21 15:53 16:00 17:00 Temperature 98.5 F Pulse Rate 99 Respiratory 22 22 18 Rate Blood Pressure 95/63 108/68 O2 Sat by Pulse 86 L 93 L 93 L Oximetry 11/23/21 11/23/21 17:27 17:35 Temperature Pulse Rate 100 99 Respiratory 18 18 Rate Blood Pressure O2 Sat by Pulse Oximetry - Reevaluation(s) Reevaluation #1: 11/23/21 19:23 Case, H&P, test results and ED management thus far were discussed with Dr. Castrejon. She agrees with heparin anticoagulation given the patient's elevated troponin. She recommends cardiology and pulmonology consultations. She has no further recommendations at this time. 11/23/21 19:41 Patient denies development of any new symptoms while in the ED. Patient remains alert and breathing comfortably. Patient and daughter are aware the patient's test results, and they both agree with anticoagulation treatment and hospital admission at this time. EKG Findings - EKG Comments: EKG Findings:: Normal sinus rhythm, no ectopy, ventricular rate of 99 bpm, normal [place] and QRS intervals, normal QT interval, nonspecific ST and T-wave abnormality, normal axis Medical Decision Making - Medical Decision Making I suspect that the patient's hypoxia and altered mental status are likely secondary to pneumonia. Patient's Covid study is negative. Patient has been treated with IV Zosyn and IV azithromycin to cover her for possible aspiration pneumonia, as well as fdc-acquired pneumonia. Patient's troponin is also mildly elevated. Patient has no evidence of central pulmonary embolism on CT chest, but her study was suboptimal. Patient is also being treated with IV heparin anticoagulation. Dr. Castrejon has accepted hospital admission. - Lab Data Result diagrams: 11/23/21 16:42 11/23/21 16:42 Lab Results 11/23/21 11/23/21 11/23/21 Range/Units 16:42 16:42 16:42 WBC 4.9 (3.8-10.6) k/uL RBC 3.00 L (3.80-5.40) m/uL Hgb 9.5 L D (11.4-16.0) gm/dL Hct 29.2 L (34.0-46.0) % MCV 97.5 (80.0-100.0) fL MCH 31.8 (25.0-35.0) pg MCHC 32.6 (31.0-37.0) g/dL RDW 13.2 (11.5-15.5) % Plt Count 176 (150-450) k/uL MPV 10.7 Neutrophils % 84 % Lymphocytes % 4 % Monocytes % 11 % Eosinophils % 0 % Basophils % 0 % Neutrophils # 4.1 (1.3-7.7) k/uL Lymphocytes # 0.2 L (1.0-4.8) k/uL Monocytes # 0.6 (0-1.0) k/uL Eosinophils # 0.0 (0-0.7) k/uL Basophils # 0.0 (0-0.2) k/uL PT 10.5 (9.0-12.0) sec INR 1.0 (<1.2) APTT 24.4 (22.0-30.0) sec D-Dimer 5.30 H (<0.60) mg/L FEU Sodium 137 (137-145) mmol/L Potassium 3.2 L (3.5-5.1) mmol/L Chloride 102 (98-107) mmol/L Carbon Dioxide 20 L (22-30) mmol/L Anion Gap 15 mmol/L BUN 79 H (7-17) mg/dL Creatinine 1.20 H (0.52-1.04) mg/dL Est GFR (CKD-EPI)AfAm 51 (>60 ml/min/1.73 sqM) Est GFR (CKD-EPI)NonAf 44 (>60 ml/min/1.73 sqM) Glucose 95 (74-99) mg/dL Plasma Lactic Acid Demond (0.7-2.0) mmol/L Calcium 8.3 L (8.4-10.2) mg/dL Magnesium 2.4 H (1.6-2.3) mg/dL Total Bilirubin 1.1 (0.2-1.3) mg/dL AST 17 (14-36) U/L ALT 6 (4-34) U/L Alkaline Phosphatase 130 H (38-126) U/L Troponin I (0.000-0.034) ng/mL NT-Pro-B Natriuret Pep pg/mL Total Protein 5.7 L (6.3-8.2) g/dL Albumin 2.9 L (3.5-5.0) g/dL Coronavirus (PCR) (Not Detectd) 11/23/21 11/23/21 11/23/21 Range/Units 16:42 16:42 16:42 WBC (3.8-10.6) k/uL RBC (3.80-5.40) m/uL Hgb (11.4-16.0) gm/dL Hct (34.0-46.0) % MCV (80.0-100.0) fL MCH (25.0-35.0) pg MCHC (31.0-37.0) g/dL RDW (11.5-15.5) % Plt Count (150-450) k/uL MPV Neutrophils % % Lymphocytes % % Monocytes % % Eosinophils % % Basophils % % Neutrophils # (1.3-7.7) k/uL Lymphocytes # (1.0-4.8) k/uL Monocytes # (0-1.0) k/uL Eosinophils # (0-0.7) k/uL Basophils # (0-0.2) k/uL PT (9.0-12.0) sec INR (<1.2) APTT (22.0-30.0) sec D-Dimer (<0.60) mg/L FEU Sodium (137-145) mmol/L Potassium (3.5-5.1) mmol/L Chloride (98-107) mmol/L Carbon Dioxide (22-30) mmol/L Anion Gap mmol/L BUN (7-17) mg/dL Creatinine (0.52-1.04) mg/dL Est GFR (CKD-EPI)AfAm (>60 ml/min/1.73 sqM) Est GFR (CKD-EPI)NonAf (>60 ml/min/1.73 sqM) Glucose (74-99) mg/dL Plasma Lactic Acid Demond 1.0 (0.7-2.0) mmol/L Calcium (8.4-10.2) mg/dL Magnesium (1.6-2.3) mg/dL Total Bilirubin (0.2-1.3) mg/dL AST (14-36) U/L ALT (4-34) U/L Alkaline Phosphatase (38-126) U/L Troponin I 0.106 H* (0.000-0.034) ng/mL NT-Pro-B Natriuret Pep 5010 pg/mL Total Protein (6.3-8.2) g/dL Albumin (3.5-5.0) g/dL Coronavirus (PCR) (Not Detectd) 11/23/21 Range/Units 16:42 WBC (3.8-10.6) k/uL RBC (3.80-5.40) m/uL Hgb (11.4-16.0) gm/dL Hct (34.0-46.0) % MCV (80.0-100.0) fL MCH (25.0-35.0) pg MCHC (31.0-37.0) g/dL RDW (11.5-15.5) % Plt Count (150-450) k/uL MPV Neutrophils % % Lymphocytes % % Monocytes % % Eosinophils % % Basophils % % Neutrophils # (1.3-7.7) k/uL Lymphocytes # (1.0-4.8) k/uL Monocytes # (0-1.0) k/uL Eosinophils # (0-0.7) k/uL Basophils # (0-0.2) k/uL PT (9.0-12.0) sec INR (<1.2) APTT (22.0-30.0) sec D-Dimer (<0.60) mg/L FEU Sodium (137-145) mmol/L Potassium (3.5-5.1) mmol/L Chloride (98-107) mmol/L Carbon Dioxide (22-30) mmol/L Anion Gap mmol/L BUN (7-17) mg/dL Creatinine (0.52-1.04) mg/dL Est GFR (CKD-EPI)AfAm (>60 ml/min/1.73 sqM) Est GFR (CKD-EPI)NonAf (>60 ml/min/1.73 sqM) Glucose (74-99) mg/dL Plasma Lactic Acid Demond (0.7-2.0) mmol/L Calcium (8.4-10.2) mg/dL Magnesium (1.6-2.3) mg/dL Total Bilirubin (0.2-1.3) mg/dL AST (14-36) U/L ALT (4-34) U/L Alkaline Phosphatase (38-126) U/L Troponin I (0.000-0.034) ng/mL NT-Pro-B Natriuret Pep pg/mL Total Protein (6.3-8.2) g/dL Albumin (3.5-5.0) g/dL Coronavirus (PCR) Not Detected (Not Detectd) - Radiology Data Chest x-ray: Bibasilar right greater than left patchy airspace opacities concerning for multifocal pneumonia. Upper lobe predominant lucencies suggestive of COPD/emphysema. Normal cardiomediastinal silhouette. No pneumothorax or large effusion. No acute osseous abnormality. Similar to prior study, gastrointestinal distended and a single mildly dilated loop up to 5.6 cm are seen in the upper abdomen. Clinical and abdominal radiograph correlation recommended. Noncontrast head CT: 1. No acute intracranial process. 2. Nonspecific white matter changes, likely secondary to chronic small vessel ischemic disease. CT angiography chest with IV contrast: 1. No evidence of central pulmonary embolism. Limited evaluation of the segmental and subsegmental branches. 2. Diffuse scattered ground glass pulmonary opacities member present atypical pneumonia infection such as COVID-19. 3. Consolidation/atelectasis of the lower lobes. This may represent postobstructive atelectasis. Correlate for aspiration. Superimposed infection not entirely ruled out. 4. Trace bilateral pleural effusions. Critical Care Time Critical Care Time: Yes Total Critical Care Time: 40 Disposition Clinical Impression: Hypoxia, Elevated troponin, Altered mental status, Pneumonia Disposition: ADMITTED IP TO THIS HOSP Condition: Stable Is patient prescribed a controlled substance at d/c from ED?: No Referrals: Francoise Castrejon MD [Primary Care Provider] - 1-2 days Time of Disposition: 19:25
[2021-11-23] MEDS ORDERED: IPRATROPIUM-ALBUTEROL 3 ML NEB INHALATION STA (16:24)
[2021-11-23 17:08] LABS: Albumin 2.9 g/dL (3.5-5.0); Calcium 8.3 mg/dL (8.4-10.2); Magnesium 2.4 mg/dL (1.6-2.3); Potassium 3.2 mmol/L (3.5-5.1); Total Bilirubin 1.1 mg/dL (0.2-1.3); Total Protein 5.7 g/dL (6.3-8.2)
[2021-11-23 17:32] LABS: Partial Thromboplastin Time 24.4 sec (22.0-30.0); Prothrombin Time 10.5 sec (9.0-12.0)
--- NOTE | 2021-11-23 17:48 | XR ---
EXAMINATION TYPE: XR chest 1V portable DATE OF EXAM: 11/23/2021 COMPARISON: 03/24/2021 HISTORY: 76 years Female. STUDY INDICATION GIVEN: hypoxia, cough . TECHNIQUE: AP upright portable chest radiograph IMPRESSION: Bibasilar right greater than left patchy airspace opacities concerning for multifocal pneumonia. Upper lobe predominant lucencies suggestive of COPD/emphysema. Normal cardiomediastinal silhouette. No pneumothorax or large effusion. No acute osseous abnormality. Similar to prior study, gas-filled distended and a single mildly dilated bowel loop up to 5.6 cm are seen in the upper abdomen. Clinical and abdominal radiograph correlation recommended.
[2021-11-23 17:57] LABS: Basophils % (A) 0 %; Eosinophils % (A) 0 %; HCT 29.2 % (34.0-46.0); Lymphocytes # (A) 0.2 k/uL (1.0-4.8); Lymphocytes % (A) 4 %; MCH 31.8 pg (25.0-35.0); MCHC 32.6 g/dL (31.0-37.0); MCV 97.5 fL (80.0-100.0); Mean Platelet Volume 10.7; Monocytes # (A) 0.6 k/uL (0-1.0); Monocytes % (A) 11 %; Neutrophils # (A) 4.1 k/uL (1.3-7.7); Neutrophils % (A) 84 %; Platelet Count 176 k/uL (150-450); RDW 13.2 % (11.5-15.5); WBC 4.9 k/uL (3.8-10.6)
[2021-11-23] MEDS ORDERED: ASPIRIN 81 MG PO STA (17:58)
[2021-11-23] MEDS ORDERED: SODIUM CHLORIDE 0.9% 500 ML 500 ML IV ONE (17:59)
[2021-11-23 18:00] LABS: HGB 9.5 gm/dL (11.4-16.0)
--- NOTE | 2021-11-23 19:02 | CT ---
EXAMINATION TYPE: CT chest angio for PE CT DLP: 310.8 mGycm, Automated exposure control for dose reduction was used. DATE OF EXAM: 11/23/2021 6:49 PM COMPARISON: Chest radiograph from same day. CLINICAL INDICATION:Female, 76 years old with history of Hypoxia, elevated d-dimer; TECHNIQUE/CONTRAST: CTA scan of the thorax is performed with IV Contrast, patient injected with 80 mL of Isovue 370, pulm onary embolism protocol. MIP images are created and reviewed. FINDINGS: An limits evaluation of solid segmental branches. Pulmonary Artery: There is no evidence for a filling defect within the pulmonary vasculature to sugge st acute pulmonary embolism. The pulmonary artery is of normal size. Lungs/Pleura: Few scattered groundglass opacities are seen throughout the lungs pronounced in the upp er lobes. Limited evaluation of the lower lobes due to motion. There is atelectasis changes of the bi lateral lower lobes medially. Bilateral pleural effusions are present. No evidence of pneumothorax. Airway: Distal lower lobe opacified airways are present in the area surrounding consolidation. Heart: Within normal limits for size. Vasculature: No evidence of aortic aneurysm. Mediastinum: Limited due to motion, no gross evidence of adenopathy. Musculoskeletal: Moderate degenerative disc disease changes are present throughout the thoracolumbar spine. Soft Tissues: Unremarkable. Lower neck: No significant findings. Upper Abdomen: Limited due to motion. Stomach appears distended with swallowed gastric contents. IMPRESSION: 1. No evidence of central pulmonary embolism. Limited evaluation of the segmental and subsegmental br anches. 2. Few scattered groundglass pulmonary opacities may represent atypical pulmonary infection such as C OVID-19. 3. Consolidation/atelectasis of the lower lobes. This may represent postobstructive atelectasis. Lio elate for aspiration. Superimposed infection not entirely ruled out. 4. Trace bilateral pleural effusions.
--- NOTE | 2021-11-23 19:11 | CT ---
EXAMINATION TYPE: CT brain wo con CT DLP: 1098 mGycm, Automated exposure control for dose reduction was used. DATE OF EXAM: 11/23/2021 7:00 PM COMPARISON: None.. Prior CT Brain from . CLINICAL INDICATION:Female, 76 years old with history of AMS; TECHNIQUE: Brain: Multiple axial CT images of the brain were obtained without IV contrast. FINDINGS: Brain: Extra-axial spaces: No abnormal extra-axial fluid collections. Ventricular system: Dilatation in proportion to cerebral atrophy. Cerebral parenchyma: Cerebral atrophy. No acute intraparenchymal hemorrhage or mass effect. The arora -white junction is well differentiated. Scattered hypoattenuating areas are seen within the white mat ter. Cerebellum: Cerebellar atrophy Mass effect: No evidence of midline shift. Intracranial vasculature: Atherosclerotic calcifications of the intracranial vessels. Soft tissues: Normal. Calvarium/osseous structures: No depressed skull fracture. Paranasal sinuses and mastoid air cells: Clear. Visualized orbits: Orbital contents are intact. IMPRESSION: 1. No acute intracranial process. 2. Nonspecific white matter changes, likely secondary to chronic small vessel ischemic disease.
[2021-11-23] MEDS ORDERED: PIPERACILLIN-TAZOBACTAM 3.375 GM in SODIUM CHLORIDE 0.9% 100 ML IVPB STA (19:19)
[2021-11-23] MEDS ORDERED: AZITHROMYCIN 500 MG in SODIUM CHLORIDE 0.9% 250 ML IVPB STA (19:20)
[2021-11-23] MEDS ORDERED: HEPARIN SODIUM 1,000 UN/ML (10ML VL) IV PRN (19:27)
[2021-11-23] MEDS ORDERED: HEPARIN SODIUM 1,000 UN/ML (10ML VL) IV ONE (19:27)
[2021-11-23 20:43] LABS: Amorphous Sediment,Urine Occasional /hpf; Appearance,Urine Clear (Clear); Bilirubin,Urine Negative (Negative); Blood,Urine Small (Negative); Color,Urine Yellow; Glucose,Urine (UA) Negative (Negative); Hyaline Casts,Urine 195 /lpf (0-2); Ketones,Urine 1+ (Negative); Leukocyte Esterase,Urine Negative (Negative); Mucus,Urine Occasional /hpf; Nitrite,Urine Negative (Negative); PH, Urine 5.5 (5.0-8.0); Protein,Urine 1+ (Negative); RBC,Urine 9 /hpf (0-5); Squamous Epithelial Cell,Urine <1 /hpf (0-4); WBC,Urine 4 /hpf (0-5)
[2021-11-23 22:52] LABS: HGB 11.7 gm/dL (11.4-16.0); MCH 30.3 pg (25.0-35.0); MCHC 31.6 g/dL (31.0-37.0); Mean Platelet Volume 10.6; Platelet Count 248 k/uL (150-450); RBC 3.86 m/uL (3.80-5.40); RDW 12.6 % (11.5-15.5); WBC 7.3 k/uL (3.8-10.6)
[2021-11-23 23:01] LABS: Partial Thromboplastin Time 26.5 sec (22.0-30.0); Prothrombin Time 10.7 sec (9.0-12.0)
[2021-11-23 23:17] LABS: Band Neutrophils % 78 %; Lymphocytes # (M) 0.44 k/uL (1.0-4.8); Monocytes # (M) 0.37 k/uL (0-1.0); Neutrophils % (M) 11 %; Nucleated Red Blood Cells 0 /100 WBC (0-0); Total Cells Counted 200
[2021-11-23 23:18] LABS: Toxic Granulation Present; Toxic Vacuolation Present
[2021-11-23] MEDS: HEPARIN SOD,PORK IN 0.45% NACL 25,000 UNIT in 0.45% NACL 1 250ML.BAG IV SCH (23:23)
[2021-11-24 04:12] LABS: Partial Thromboplastin Time 46.7 sec (22.0-30.0); Prothrombin Time 10.8 sec (9.0-12.0)
[2021-11-24 04:20] LABS: HCT 34.8 % (34.0-46.0); HGB 11.2 gm/dL (11.4-16.0); MCH 30.7 pg (25.0-35.0); MCV 95.9 fL (80.0-100.0); Mean Platelet Volume 10.4; Platelet Count 245 k/uL (150-450); RBC 3.63 m/uL (3.80-5.40); RDW 13.3 % (11.5-15.5); WBC 7.7 k/uL (3.8-10.6)
[2021-11-24 04:26] LABS: Albumin 2.5 g/dL (3.5-5.0); Calcium 7.7 mg/dL (8.4-10.2); Total Bilirubin 0.8 mg/dL (0.2-1.3)
[2021-11-24 04:59] LABS: Potassium 2.7 mmol/L (3.5-5.1)
[2021-11-24 05:20] LABS: Band Neutrophils % 71 %; Lymphocytes # (M) 0.62 k/uL (1.0-4.8); Monocytes # (M) 0.23 k/uL (0-1.0); Neutrophils % (M) 18 %; Nucleated Red Blood Cells 0 /100 WBC (0-0); Total Cells Counted 200
[2021-11-24] MEDS: POTASSIUM CHLORIDE 10 MEQ in WATER FOR INJECTION 1 100ML.BAG IVPB SCH ×3 (07:10→11:24)
[2021-11-24] MEDS: POTASSIUM CHLORIDE ER 20 MEQ TAB.ER PO SCH ×3 (08:30→13:36)
[2021-11-24] MEDS ORDERED: HEPARIN SODIUM 1,000 UN/ML (10ML VL) IVP STA (08:31)
[2021-11-24] MEDS: ATORVASTATIN 20 MG TAB PO SCH (10:30)
[2021-11-24] MEDS: ASPIRIN 81 MG PO SCH (10:30)
[2021-11-24] MEDS: METOPROLOL TARTRATE 25 MG TAB PO SCH ×2 (10:30→21:33)
--- NOTE | 2021-11-24 11:09 | P.CNPUL ---
History of Present Illness Consult date: 11/24/21 Reason for consult: dyspnea History of present illness: 76-year-old female patient was brought into the emergency department yesterday because of shortness of breath and altered mental status.. The patient was very weak and lethargic for the past 2 days. She is normally on home O2 at 2 L per minute nasal cannula and sometimes she uses 4 L. She was negative for covert 19. She came in with worsening shortness of breath and lightheadedness. She denies having any chest pain. No reported fever or chills. No pleurisy. No hemoptysis. In the emergency department, the patient was found to be afebrile. Initial blood pressure was 95/63. Pulse ox was 86% on room air oxygen. The chest x-ray showed bibasilar pulmonary infiltrates right more than left patchy airspace disease concerning for multifocal pneumonia and there is some backgrou nd COPD in addition. The patient was supple with a 4.7 with hemoglobin 9.5 and a platelet count of 176. TPN was 79 with a creatinine of 1.2. Sodium is at 137 and the potassium was at 3.2, BMI was 79 and a creatinine was 1.2. The patient had normal coagulation profile. D-dimer was at 5.3. LFTs were normal. The patient's lactic acid level was at 1.0. Troponin was 0.1. ProBNP level was 5000. CT angiogram was done and the patient had no evidence of any pulmonary embolism. There was diffuse scattered groundglass pulmonary opacities and some consolidation of the lung bases bilaterally. Trace pleural effusions were also seen. SHe is a [place] resident and she had a fall and she had ORIF of the right hip and since then she has been in the [place]. The CAT scan of the brain was essentially negative for any acute abnormalities. The patient is currently on 6 L by nasal cannula. Her current pulse ox is 99%. Review of Systems Constitutional: Reports fatigue, Reports weakness Eyes: denies as per HPI, denies blurred vision, denies bulging eye, denies decreased vision, denies diplopia, denies discharge, denies dry eye, denies irritation, denies itching, denies pain, denies photophobia, denies loss of peripheral vision, denies loss of vision, denies tunnel vision/blind spots Ears: deny: decreased hearing, ear discharge, earache, tinnitus Ears, nose, mouth and throat: Reports as per HPI Breasts: absent: as per HPI, change in shape, gynecomastia, masses, nipple discharge, pain, skin changes, swelling Cardiovascular: Reports decreased exercise tolerance, Reports dyspnea on exertion Respiratory: Reports dyspnea Gastrointestinal: Reports as per HPI Genitourinary: Reports as per HPI Menstruation: Reports as per HPI Musculoskeletal: Reports as per HPI Musculoskeletal: absent: ankle pain, ankle stiffness, ankle swelling Integumentary: Reports as per HPI Neurological: Reports as per HPI, Reports gait dysfunction, Reports weakness Psychiatric: Reports as per HPI Endocrine: Reports as per HPI Hematologic/Lymphatic: Reports as per HPI Allergic/Immunologic: Reports as per HPI Past Medical History Past Medical History: Atrial Fibrillation, COPD Additional Past Medical History / Comment(s): fall and ORIF of the right hip in oct 2021, [facility] resident , parkinson, dementia, paroxysmal afib, home 02 for COPD History of Any Multi-Drug Resistant Organisms: None Reported Past Surgical History: Section, Joint Replacement, Tonsillectomy, Tubal Ligation Additional Past Surgical History / Comment(s): left humerus fx, right humerus fx, left hip fx Past Anesthesia/Blood Transfusion Reactions: No Reported Reaction Past Psychological History: No Psychological Hx Reported Smoking Status: Never smoker Past Alcohol Use History: None Reported Past Drug Use History: None Reported Medications and Allergies Home Medications Medication Instructions Recorded Confirmed Type Cyanocobalamin (Vitamin B-12) 1,000 mcg PO DAILY@0900 03/24/21 11/23/21 History [Vitamin B-12] Ergocalciferol (Vitamin D2) 1,250 mcg PO SA@0903/24/21 11/23/21 History [Drisdol (50,000 Iu)] Famotidine 20 mg PO DAILY@0600 03/24/21 11/23/21 History Aspirin 81 mg PO DAILY@0900 11/03/21 11/23/21 History Carbidopa/Levodopa [Sinemet 10-100 1 tab PO TID@0600,1400,2200 11/03/21 11/23/21 History mg Tablet] Sennosides [Senokot] 17.2 mg PO DAILY PRN 11/03/21 11/23/21 History Sertraline [Zoloft] 25 mg PO HS@2100 11/03/21/15/22 History amantadine HCL [Symmetrel] 100 mg PO BID@0900,2100 11/03/21 11/23/21 History HYDROcodone/APAP 5-325MG [[place] 1 tab PO Q6HR PRN #30 tab 11/05/21 11/23/21 Rx 5-325] Losartan [Cozaar] 50 mg PO HS@209911/23/21 11/23/21 History Midodrine HCl [ProAmatine] 10 mg PO TID@0600,1400,2200 11/23/21 11/23/21 History Allergies Allergy/AdvReac Type Severity Reaction Status Date / Time No Known Allergies Allergy Verified 11/23/21 18:20 Physical Exam Vitals: Vital Signs Temp Pulse Resp BP Pulse Ox 11/24/21 10:10 98 18 119/66 96 11/24/21 08:45 87 18 110/67 98 11/24/21 07:50 100 11/24/21 07:19 97.6 F 83 17 131/76 98 11/24/21 03:58 92 19 133/81 96 11/24/21 01:48 97.5 F L 90 13 138/73 96 11/23/21 17:35 99 18 11/23/21 17:27 100 18 11/23/21 17:00 18 108/68 93 L 11/23/21 16:00 22 93 L 11/23/21 15:53 98.5 F 99 22 95/63 86 L Intake and Output 11/23/21 11/24/21 11/24/21 22:59 06:59 14:59 Intake Total 86.143 Balance 86.143 Intake: Intake, IV Titration 86.143 Amount Heparin Sod,Pork in 0.45% 86.143 NaCl 25,000 unit In 0.45 % NaCl 1 250ml.bag @ 12 UNITS/KG/HR 7.784 mls/hr IV .Q24H [facility] Rx#: [id number] Other: Weight 64.864 kg Appearance the patient is calm and comfortable on 6 L of oxygen and her breathing is nonlabored at this point in time Head exam was generally normal. There was no scleral icterus or corneal arcus. Mucous membranes were moist. Neck was supple and without jugular venous distension, thyromegaly, or carotid bruits. Carotids were easily palpable bilaterally. There was no adenopathy. The patient is edentulous at this point in time she doesn't have her dentures Lungs sounds are diminished in lung bases bilaterally along with some limited bibasilar crackles Cardiac exam revealed the PMI to be normally situated and sized. The rhythm was regular and no extrasystoles were noted during several minutes of auscultation. The first and second heart sounds were normal and physiologic splitting of the second heart sound was noted. There were no murmurs, rubs, clicks, or gallops. Abdominal exam revealed normal bowel sounds. The abdomen was soft, non-tender, and without masses, organomegaly, or appreciable enlargement of the abdominal aorta. Examination of the extremities revealed easily palpable radial, femoral and pedal pulses. There was no cyanosis, clubbing or edema. Examination of the skin revealed no evidence of significant rashes, suspicious appearing nevi or other concerning lesions. Neurologically the patient is awake and she's following commands and moving all 4 extremities. No focal neurological deficit. Profound motor weakness in all 4 extremities. Results - Laboratory Findings CBC and BMP: 11/24/21 03:42 11/24/21 03:42 PT/INR, D-dimer PT 10.8 sec (9.0-12.0) 11/24/21 03:42 INR 1.0 (<1.2) 11/24/21 03:42 D-Dimer 5.30 mg/L FEU (<0.60) H 11/23/21 16:42 Abnormal lab findings: Abnormal Labs 11/23/21 11/23/21 11/23/21 16:42 16:42 16:42 RBC 3.00 L Hgb 9.5 L D Hct 29.2 L Lymphocytes # 0.2 L Lymphocytes # (Manual) APTT D-Dimer 5.30 H Potassium Carbon Dioxide BUN Creatinine Glucose Calcium Magnesium Alkaline Phosphatase Troponin I Total Protein Albumin Ur Specific [place] 1.050 H Urine Protein 1+ H Urine Ketones 1+ H Urine Blood Small H Urine RBC 9 H Amorphous Sediment Occasional H Hyaline Casts 195 H Urine Mucus Occasional H 11/23/21 11/23/21 11/23/21 16:42 16:42 21:48 RBC Hgb Hct Lymphocytes # Lymphocytes # (Manual) APTT D-Dimer Potassium 3.2 L Carbon Dioxide 20 L BUN 79 H Creatinine 1.20 H Glucose Calcium 8.3 L Magnesium 2.4 H Alkaline Phosphatase 130 H Troponin I 0.106 H* 0.142 H* Total Protein 5.7 L Albumin 2.9 L Ur Specific [place] Urine Protein Urine Ketones Urine Blood Urine RBC Amorphous Sediment Hyaline Casts Urine Mucus 11/23/21 11/24/21 11/24/21 21:48 01:15 03:42 RBC Hgb Hct Lymphocytes # Lymphocytes # (Manual) 0.44 L APTT 46.7 H D-Dimer Potassium Carbon Dioxide BUN Creatinine Glucose Calcium Magnesium Alkaline Phosphatase Troponin I 0.113 H* Total Protein Albumin Ur Specific [place] Urine Protein Urine Ketones Urine Blood Urine RBC Amorphous Sediment Hyaline Casts Urine Mucus 11/24/21 11/24/21 11/24/21 03:42 03:42 07:42 RBC 3.63 L Hgb 11.2 L Hct Lymphocytes # Lymphocytes # (Manual) 0.62 L APTT 34.8 H D-Dimer Potassium 2.7 L* Carbon Dioxide BUN 74 H Creatinine Glucose 106 H Calcium 7.7 L Magnesium Alkaline Phosphatase Troponin I Total Protein 5.0 L Albumin 2.5 L Ur Specific [place] Urine Protein Urine Ketones Urine Blood Urine RBC Amorphous Sediment Hyaline Casts Urine Mucus - Diagnostic Findings Chest x-ray: image reviewed CT scan - chest: image reviewed Assessment and Plan Plan: 1 acute hypoxic respiratory failure, probably a combination of CHF with bibasilar pneumonia and small bilateral pleural effusions.: 19 testing is been negative and the patient is currently on 6 L of oxygen by nasal cannula. Patient is a senior living resident. 2 COPD with chronic hypoxic respiratory failure maintained on oxygen at 2 L 3 chronic paroxysmal atrial fibrillation current rhythm is sinus 4 recent history of fall and ORIF of the right hip. The patient has been a [facility] resident since and the patient has been nonambulatory 5 Parkinson's disease 6 generalized debility and motor weakness secondary to above-mentioned comorbidities 7 altered mentation secondary to above. The patient had a computed tomography scan of the chest that showed no acute deficits or abnormalities 8 Dementia Plan Titrate oxygen flow currently on 6 L per minute nasal cannula Put the patient IV Zosyn Lasix 40 mg every 12 hours and check a 2-D echocardiogram Monitor the electrolytes and renal function Check a pro-calcitonin level Monitor mentation We'll continue to follow
--- NOTE | 2021-11-24 12:33 | P.CRDCN ---
History of Present Illness Consult date: 11/24/21 History of present illness: This is Trey Santos NP dictating a consult on this patient on behalf of Dr. Barber. The patient was interviewed and examined. HPI: [Patient is a pleasant 76-year-old female who initially presented to hospital with complaints of shortness of breath of breath this a.m., with an increase in her oxygen requirement. Patient lives in a residential. Per the residential the patient was generally weak and lethargic for the last couple days. She is normally on 2-4 L of oxygen at home, and they report that her oxygen demand increased over the last couple of days as well. Patient does report feeling mildly short of breath and lightheaded. She is also reporting a cough for the past 4 days. She has a past medical history includes atrial fibrillation and COPD, Parkinson's. She is past surgical history that includes section, joint replacement, tonsillectomy, and tubal ligation. She is a never smoker, denies current alcohol or illicit substance use. Patient was interviewed and examined while lying in the bed. Patient reports that she feels weak and doesn't know why. She's not appreciating any shortness of breath or chest pain at this time. Patient was found have elevated troponins that are currently flat at this time. Patient was also found to have an elevated d- dimer, patient did have a CT angiogram completed that shows no evidence of central pulmonary embolism.] ROS: [No fever, chills, or rigors] [Reports cough for the last 4 days, otherwise no phlegm, or expectoration] [no nausea, vomiting, or diarrhea] [no hematuria, dysuria] [no musculoskelatal complaints] [no strokes or seizures] [no skin lesions] EXAMINATION: GENERAL: Well-appearing, well-nourished and in no acute distress. NECK: Supple without JVD or thyromegaly. LUNGS: Breath sounds diminished but clear to auscultation bilaterally. Resp iration equal and unlabored. No wheezes, rales or rhonchi. HEART: Regular rate and rhythm without murmurs, rubs or gallops. S1 and S2 heard. EXTREMITIES: Normal range of motion, no edema. No clubbing or cyanosis. Peripheral pulses intact and strong. REVIEW OF LABS, ECG & MEDICAL DATA: LABS: White count 7.7, hemoglobin 11.2, platelets 245, d-dimer 5.30, sodium 138, potassium 2.7, BUN 74, creatinine 0.93, calcium 7.7, serial troponins 3-0.106, 0.142, 0.113, BNP 5010 EKG: Normal sinus rhythm with nonspecific ST and T wave abnormality IMAGING: Chest x-ray dated 11/23/2021 demonstrates bibasilar right greater than left patchy airspace opacities concerning for multifocal pneumonia. Upper lobe predominant lucency suggestive of COPD/emphysema. Normal cardiomediastinal silhouette. No pneumothorax or large effusion. No acute osseous abnormality. Similar to prior study, gas-filled distended and a single mildly dilated bowel loop up to 5.6 cm are seen in the upper abdomen; CT angiogram of the chest dated 11/23/2021 demonstrates no evidence of central pulmonary embolism. Limited emmanuel luation of the segmental and subsegmental branches. Few scattered groundglass pulmonary bases may represent atypical pulmonary infection such as COVID-19. Consolidation/atelectasis of the lower lobes. This may represent postobstructive atelectasis. Correlate for aspiration. Superimposed infection not entirely ruled out. Trace bilateral pleural effusions; CT of the brain dated 11/23/2021 demonstrates no acute intracranial process. Nonspecific white matter changes, likely secondary to chronic small vessel ischemic disease. VITALS: Temp 97.6, pulse 98, respirations 18, blood pressure 119/66, O2 saturation 96% on 6 L by nasal cannula IMPRESSION: Elevated D-dimer of unclear significance Elevated tropinins of unclear significance PLAN: 2d echo/doppler continue IV heparin continue beta blockers and aspirin Atorvastatin 20mg daily Aspirin 81 mg daily Thank you for the consult and allowing us to participate in the care of this patient. The patient has been seen and evaluated. Plan of care has been reviewed and agreed upon by Dr. Barber. 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 History of Any Multi-Drug Resistant Organisms: None Reported Past Surgical History: Section, Joint Replacement, Tonsillectomy, Tubal Ligation Additional Past Surgical History / Comment(s): left humerus fx, right humerus fx, left hip fx Past Anesthesia/Blood Transfusion Reactions: No Reported Reaction Past Psychological History: No Psychological Hx Reported Smoking Status: Never smoker Past Alcohol Use History: None Reported Past Drug Use History: None Reported Medications and Allergies Home Medications Medication Instructions Recorded Confirmed Type Cyanocobalamin (Vitamin B-12) 1,000 mcg PO DAILY@0900 03/24/21 11/23/21 History [Vitamin B-12] Ergocalciferol (Vitamin D2) 1,250 mcg PO SA@0900 03/24/21 11/23/21 History [Drisdol (50,000 Iu)] Famotidine 20 mg PO DAILY@0600 03/24/21 11/23/21 History Aspirin 81 mg PO DAILY@0900 11/03/21 11/23/21 History Carbidopa/Levodopa [Sinemet 10-100 1 tab PO TID@0600,1400,2200 11/03/21 11/23/21 History mg Tablet] Sennosides [Senokot] 17.2 mg PO DAILY PRN 11/03/21 11/23/21 History Sertraline [Zoloft] 25 mg PO HS@2100 11/03/21 11/23/21 History amantadine HCL [Symmetrel] 100 mg PO BID@0900,2100 11/03/21 11/23/21 History HYDROcodone/APAP 5-325MG [[place] 1 tab PO Q6HR PRN #30 tab 11/05/21 11/23/21 Rx 5-325] Losartan [Cozaar] 50 mg PO HS@2100 11/23/21 11/23/21 History Midodrine HCl [ProAmatine] 10 mg PO TID@0600,1400,2200 11/23/21 11/23/21 History Allergies Allergy/AdvReac Type Severity Reaction Status Date / Time No Known Allergies Allergy Verified 11/23/21 18:20 Physical Exam Vitals: Vital Signs Temp Pulse Resp BP Pulse Ox 11/24/21 07:50 100 11/24/21 07:19 97.6 F 83 17 131/76 98 11/24/21 03:58 92 19 133/81 96 11/24/21 01:48 97.5 F L 90 13 138/73 96 11/23/21 17:35 99 18 11/23/21 17:27 100 18 11/23/21 17:00 18 108/68 93 L 11/23/21 16:00 22 93 L 11/23/21 15:53 98.5 F 99 22 95/63 86 L Intake and Output 11/23/21 11/24/21 11/24/21 22:59 06:59 14:59 Other: Weight 64.864 kg Results 11/24/21 03:42 11/24/21 03:42 Cardiac Enzymes 11/23/21 11/23/21 11/23/21 Range/Units 16:42 16:42 21:48 AST 17 (14-36) U/L Troponin I 0.106 H* 0.142 H* (0.000-0.034) ng/mL 11/24/21 11/24/21 Range/Units 01:15 03:42 AST 19 (14-36) U/L Troponin I 0.113 H* (0.000-0.034) ng/mL Coagulation 11/23/21 11/23/21 11/24/21 Range/Units 16:42 21:48 03:42 PT 10.5 10.7 10.8 (9.0-12.0) sec APTT 24.4 26.5 46.7 H (22.0-30.0) sec 11/24/21 Range/Units 07:42 PT (9.0-12.0) sec APTT 34.8 H (22.0-30.0) sec CBC 11/23/21 11/23/21 11/24/21 Range/Units 16:42 21:48 03:42 WBC 4.9 7.3 7.7 (3.8-10.6) k/uL RBC 3.00 L 3.86 3.63 L (3.80-5.40) m/uL Hgb 9.5 L D 11.7 11.2 L (11.4-16.0) gm/dL Hct 29.2 L 37.0 34.8 (34.0-46.0) % Plt Count 176 248 245 (150-450) k/uL Comprehensive Metabolic Panel 11/23/21 11/24/21 Range/Units 16:42 03:42 Sodium 137 138 (137-145) mmol/L Potassium 3.2 L 2.7 L* (3.5-5.1) mmol/L Chloride 102 104 (98-107) mmol/L Carbon Dioxide 20 L 23 (22-30) mmol/L BUN 79 H 74 H (7-17) mg/dL Creatinine 1.20 H 0.93 (0.52-1.04) mg/dL Glucose 95 106 H (74-99) mg/dL Calcium 8.3 L 7.7 L (8.4-10.2) mg/dL AST 17 19 (14-36) U/L ALT 6 6 (4-34) U/L Alkaline Phosphatase 130 H 113 (38-126) U/L Total Protein 5.7 L 5.0 L (6.3-8.2) g/dL Albumin 2.9 L 2.5 L (3.5-5.0) g/dL Current Medications Generic Name Dose Route Start Last Admin Trade Name Freq PRN Reason Stop Dose Admin Heparin Sodium (Porcine) 0 unit 11/23/21 19:27 Heparin Sodium 1,000 Un/Ml (10ml Vl) IV PER PROTOCOL PRN Low PTT Protocol Heparin Sodium/Sodium Chloride 250 mls @ 7.784 mls/hr 11/23/21 19:30 11/23/21 23:23 25,000 unit/ Sodium Chloride IV 12 units/kg/hr .Q24H NIK 7.784 mls/hr Administration Protocol 12 UNITS/KG/HR Potassium [place] 10 meq/ IV 100 mls @ 100 mls/hr 11/24/21 06:30 11/24/21 07:10 Solution IVPB 11/24/21 09:29 100 mls/hr Q1H NIK Administration Protocol Metoprolol Tartrate 25 mg 11/24/21 09:00 Metoprolol Tartrate 25 Mg Tab PO BID NIK Potassium Chloride 40 meq 11/24/21 08:00 Potassium Chloride Er 20 Meq Tab.Er PO 11/24/21 12:01 Q2HR NIK Intake and Output 11/23/21 11/24/21 11/24/21 22:59 06:59 14:59 Other: Weight 64.864 kg 11/24/21 03:42 11/24/21 03:42
[2021-11-24] MEDS: PIPERACILLIN-TAZOBACTAM 3.375 GM in SODIUM CHLORIDE 0.9% 100 ML IVPB SCH ×2 (13:37→21:33)
[2021-11-24] MEDS ORDERED: SENNOSIDES 8.6 MG TAB PO PRN (14:58)
[2021-11-24] MEDS ORDERED: HYDROcodone/APAP 5-325MG 1 EACH TAB PO PRN (14:58)
--- NOTE | 2021-11-24 15:06 | P.HPIM ---
History of Present Illness H&P Date: 11/24/21 History of present illness 76 years old female one of my clinic patient ( Dr. Castrejon ) with past medical history of paroxysmal atrial fibrillation, Parkinson disease, dementia chronic home O2 for COPD, COPD, history of osteoporosis comes in after she had a fall on 11/03 was noted to have nondisplaced right acetabular fracture .follows by Dr. Janett Akbar, and is on on 50% weightbearing as tolerated on the right hip.she was recovering very nicely at the [facility] [facility], however one day prior to admission, she was noted to have some cough, later on she was noted to have some hypoxemia.she was transferred to emergency room, secondary to the hypoxemia at 86%, on room air, decreased appetite,. She was transferred via ambulance, with O2, she had 3 negative rapid testcoronavirus antigen, and she is not vaccinated for the coronavirus.she is not anticoagulated for atrial fibrillation, secondary to recurrent falls In the emergency roomshe looks frail, imaging studies include CT angiogram, there is no evidence of pulmonary emboli, there is diffuse scattered groundglass pulmonary opacification, and consultation of lung bases bilateral. There is trace pleural effusion, CT of the brain, essentially negative for acute abnormalities, currently she is in the emergency room, pending bed availability, currently at 6 L nasal cannula, pulse ox at 99%.hemoglobin of 11.2, lymphocytes at 0.62 potassium low at 2.7being replaced, d-dimer of 5.3 creatinine of 1.2 urinalyses +1 ketones, urine WBC of 4 numerous hyalin cast peripheral smear, abisai ws toxic granulation present, and toxic vacuolization ROS Constitutional: Denies chills, Denies fever, Denies lethargy, Denies malaise, Denies poor appetite, Denies weakness, Denies weight loss Eyes: denies decreased vision, denies diplopia, denies discharge, denies pain Ears: deny: decreased hearing Ears, nose, mouth and throat: Denies dental pain, Denies headache, Denies nasal discharge, Denies nose pain Cardiovascular: Denies chest pain, Denies decreased exercise tolerance, Denies edema, Denies high blood pressure, Denies irregular heart beat, Denies palpitati ons, Denies paroxysmal nocturnal dyspnea, Denies rapid heart beat, Denies shortness of breath Respiratory: Denies congestion, Denies cough, Denies cough with sputum, Denies dyspnea, Denies home oxygen, Denies wheezing Gastrointestinal: Denies abdominal pain, Denies change in bowel habits, Denies coffee ground emesis, Denies early satiety, Denies excessive gas, Denies heartburn, Denies hematemesis, Denies hematochezia, Denies loss of appetite, Denies nausea, Denies vomiting Genitourinary: Denies dysuria, Denies flank pain, Denies kidney stones, Denies menorrhagia, Denies urgency, Denies urinary frequency Musculoskeletal: Endorses gait dysfunction, endorses limitation of motion, Denies morning stiffness, Denies muscle cramps endorses right hip Integumentary: Denies rash, Denies wounds, Denies brittle nails, Denies change in hair/nails, Denies darkening of skin Neurological: Denies balance difficulties, Denies change in speech, Denies double vision, Denies gait dysfunction, Denies loss of vision, Denies motor disturbance, Denies numbness, Denies paralysis, Denies paresthesias, Denies se izures Psychiatric: Denies anxiety, Denies depression Endocrine: Denies excessive sweating, Denies excessive thirst, Denies high blood sugars, Denies palpitations Hematologic/Lymphatic: Denies easy bruising, Denies lymphadenopathy Social history Non smoker Non alcohol use No illicit drug use uses a walker at home O2 at 2 L currently at subacute rehab, for therapy [facility] Family history Mother- doesn't know much about her mother as she was raised by her grandparents Father had diabetes in the 60s Brother and sisters healthy Patient has one daughter healthy Physical exam - Constitutional General appearance: cooperative, no acute distress, thin frail - EENT Eyes: anicteric sclerae, PERRLA, normal appearance ENT: hearing grossly normal - Neck Neck: no lymphadenopathy, normal ROM, no other, no rigidity, no stridor, no thyromegaly - Respiratory Respiratory: bilateral: CTA, negative: diminished, dullness, rales, rhonchi - Cardiovascular Rhythm: regular Heart sounds: normal: S1, S2 Abnormal Heart Sounds: no systolic murmur, no diastolic murmur, no rub, no S3 Gallop, no S4 Gallop, no click, no other - Gastrointestinal General gastrointestinal: normal bowel sounds, soft nontender - Integumentary Integumentary: no rash - Neurologic Neurologic no sensorimotor deficit - Musculoskeletal Musculoskeletal: Pain involving the right hip worse on motion. Patient able to lift her leg can move her legs without any difficulty stopping neurovascular status is intact - Psychiatric Psychiatric: A&O x's 3, appropriate affect Assessment and plan 1. Acute pneumonia with hypoxemia, acute on chronic respiratory hypoxic failure, suspect aspiration, speech eval,IV Zosyn, consult with pulmonary. 2.Right acetabular fracture with fall on 11/03/2021. No plan for surgery with 50% weightbearing on the right lower extremity. PTOT consult with return to subacute rehabto help with gait instability 3. Parkinson's, with recurrent falls, continue on Sinemet 10/100 3 times a day, and amantadine 100 twice a day 4 Autonomic hypotension with dehydration, acute kidney injury, with ATN -Continue midodrine 10 mg 3 times a day 5 History of paroxysmal atrial fibrillation Patient not on any rate controlling medication or any blood thinnersecondary to multiple falls 6. Dysphagia, possibly secondary to frailty has sarcopenia, check fo esophagram, has food and pill dysphagia. Might need modified barium swallow evalspeech consult 7. Hypo-kalemia, replacement in progress 8. Elevated troponin, most likely secondary to sepsis checked for pro- calcitonin, fluids 7 Depression -Continue Zoloft and 25 mg by mouth daily 9 coronavirus vaccination, not vaccinated 10 coronary virus PCR test, negative 11DVT prophylaxis Heparin every 12 12 discharge planning return to subacute rehab, for PT OT 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 History of Any Multi-Drug Resistant Organisms: None Reported Past Surgical History: Section, Joint Replacement, Tonsillectomy, Tubal Ligation Additional Past Surgical History / Comment(s): left humerus fx, right humerus fx, left hip fx Past Anesthesia/Blood Transfusion Reactions: No Reported Reaction Past Psychological History: No Psychological Hx Reported Smoking Status: Never smoker Past Alcohol Use History: None Reported Past Drug Use History: None Reported Medications and Allergies Home Medications Medication Instructions Recorded Confirmed Type Cyanocobalamin (Vitamin B-12) 1,000 mcg PO DAILY@0903/24/21 11/23/21 History [Vitamin B-12] Ergocalciferol (Vitamin D2) 1,250 mcg PO SA@0900 03/24/21 11/23/21 History [Drisdol (50,000 Iu)] Famotidine 20 mg PO DAILY@0600 03/24/21 11/23/21 History Aspirin 81 mg PO DAILY@0900 11/03/21 11/23/21 History Carbidopa/Levodopa [Sinemet 10-100 1 tab PO TID@0600,1400,2200 11/03/21 11/23/21 History mg Tablet] Sennosides [Senokot] 17.2 mg PO DAILY PRN 11/03/21 11/23/21 History Sertraline [Zoloft] 25 mg PO HS@2100 11/03/21 11/23/21 History amantadine HCL [Symmetrel] 100 mg PO BID@0900,2100 11/03/21 11/23/21 History HYDROcodone/APAP 5-325MG [[place] 1 tab PO Q6HR PRN #30 tab 11/05/21 11/23/21 Rx 5-325] Losartan [Cozaar] 50 mg PO HS@209911/23/21 11/23/21 History Midodrine HCl [ProAmatine] 10 mg PO TID@0600,1400,2200 11/23/21 11/23/21 History Allergies Allergy/AdvReac Type Severity Reaction Status Date / Time No Known Allergies Allergy Verified 11/23/21 18:20 Physical Exam Vitals: Vital Signs Temp Pulse Resp BP Pulse Ox 11/24/21 08:45 87 18 110/67 98 11/24/21 07:50 100 11/24/21 07:19 97.6 F 83 17 131/76 98 11/24/21 03:58 92 19 133/81 96 11/24/21 01:48 97.5 F L 90 13 138/73 96 11/23/21 17:35 99 18 11/23/21 17:27 100 18 11/23/21 17:00 18 108/68 93 L 11/23/21 16:00 22 93 L 11/23/21 15:53 98.5 F 99 22 95/63 86 L Intake and Output 11/23/21 11/24/21 11/24/21 22:59 06:59 14:59 Other: Weight 64.864 kg Results CBC & Chem 7: 11/24/21 03:42 11/24/21 03:42 Labs: Abnormal Lab Results - Last 24 Hours (Table) 11/23/21 11/23/21 11/23/21 Range/Units 16:42 16:42 16:42 RBC 3.00 L (3.80-5.40) m/uL Hgb 9.5 L D (11.4-16.0) gm/dL Hct 29.2 L (34.0-46.0) % Lymphocytes # 0.2 L (1.0-4.8) k/uL Lymphocytes # (Manual) (1.0-4.8) k/uL APTT (22.0-30.0) sec D-Dimer 5.30 H (<0.60) mg/L FEU Potassium (3.5-5.1) mmol/L Carbon Dioxide (22-30) mmol/L BUN (7-17) mg/dL Creatinine (0.52-1.04) mg/dL Glucose (74-99) mg/dL Calcium (8.4-10.2) mg/dL Magnesium (1.6-2.3) mg/dL Alkaline Phosphatase (38-126) U/L Troponin I (0.000-0.034) ng/mL Total Protein (6.3-8.2) g/dL Albumin (3.5-5.0) g/dL Ur Specific [place] 1.050 H (1.001-1.035) Urine Protein 1+ H (Negative) Urine Ketones 1+ H (Negative) Urine Blood Small H (Negative) Urine RBC 9 H (0-5) /hpf Amorphous Sediment Occasional H (None) /hpf Hyaline Casts 195 H (0-2) /lpf Urine Mucus Occasional H (None) /hpf 11/23/21 11/23/21 11/23/21 Range/Units 16:42 16:42 21:48 RBC (3.80-5.40) m/uL Hgb (11.4-16.0) gm/dL Hct (34.0-46.0) % Lymphocytes # (1.0-4.8) k/uL Lymphocytes # (Manual) (1.0-4.8) k/uL APTT (22.0-30.0) sec D-Dimer (<0.60) mg/L FEU Potassium 3.2 L (3.5-5.1) mmol/L Carbon Dioxide 20 L (22-30) mmol/L BUN 79 H (7-17) mg/dL Creatinine 1.20 H (0.52-1.04) mg/dL Glucose (74-99) mg/dL Calcium 8.3 L (8.4-10.2) mg/dL Magnesium 2.4 H (1.6-2.3) mg/dL Alkaline Phosphatase 130 H (38-126) U/L Troponin I 0.106 H* 0.142 H* (0.000-0.034) ng/mL Total Protein 5.7 L (6.3-8.2) g/dL Albumin 2.9 L (3.5-5.0) g/dL Ur Specific [place] (1.001-1.035) Urine Protein (Negative) Urine Ketones (Negative) Urine Blood (Negative) Urine RBC (0-5) /hpf Amorphous Sediment (None) /hpf Hyaline Casts (0-2) /lpf Urine Mucus (None) /hpf 11/23/21 11/24/21 11/24/21 Range/Units 21:48 01:15 03:42 RBC (3.80-5.40) m/uL Hgb (11.4-16.0) gm/dL Hct (34.0-46.0) % Lymphocytes # (1.0-4.8) k/uL Lymphocytes # (Manual) 0.44 L (1.0-4.8) k/uL APTT 46.7 H (22.0-30.0) sec D-Dimer (<0.60) mg/L FEU Potassium (3.5-5.1) mmol/L Carbon Dioxide (22-30) mmol/L BUN (7-17) mg/dL Creatinine (0.52-1.04) mg/dL Glucose (74-99) mg/dL Calcium (8.4-10.2) mg/dL Magnesium (1.6-2.3) mg/dL Alkaline Phosphatase (38-126) U/L Troponin I 0.113 H* (0.000-0.034) ng/mL Total Protein (6.3-8.2) g/dL Albumin (3.5-5.0) g/dL Ur Specific [place] (1.001-1.035) Urine Protein (Negative) Urine Ketones (Negative) Urine Blood (Negative) Urine RBC (0-5) /hpf Amorphous Sediment (None) /hpf Hyaline Casts (0-2) /lpf Urine Mucus (None) /hpf 11/24/21 11/24/21 11/24/21 Range/Units 03:42 03:42 07:42 RBC 3.63 L (3.80-5.40) m/uL Hgb 11.2 L (11.4-16.0) gm/dL Hct (34.0-46.0) % Lymphocytes # (1.0-4.8) k/uL Lymphocytes # (Manual) 0.62 L (1.0-4.8) k/uL APTT 34.8 H (22.0-30.0) sec D-Dimer (<0.60) mg/L FEU Potassium 2.7 L* (3.5-5.1) mmol/L Carbon Dioxide (22-30) mmol/L BUN 74 H (7-17) mg/dL Creatinine (0.52-1.04) mg/dL Glucose 106 H (74-99) mg/dL Calcium 7.7 L (8.4-10.2) mg/dL Magnesium (1.6-2.3) mg/dL Alkaline Phosphatase (38-126) U/L Troponin I (0.000-0.034) ng/mL Total Protein 5.0 L (6.3-8.2) g/dL Albumin 2.5 L (3.5-5.0) g/dL Ur Specific [place] (1.001-1.035) Urine Protein (Negative) Urine Ketones (Negative) Urine Blood (Negative) Urine RBC (0-5) /hpf Amorphous Sediment (None) /hpf Hyaline Casts (0-2) /lpf Urine Mucus (None) /hpf
[2021-11-24] MEDS: MIDODRINE 5 MG TAB PO SCH (21:33)
[2021-11-24] MEDS: LOSARTAN 50 MG TAB PO SCH (21:33)
[2021-11-24] MEDS: SERTRALINE 25 MG TAB PO SCH (21:33)
[2021-11-24] MEDS: CARBIDOPA-LEVODOPA 10-100 MG 1 EACH TAB PO SCH (21:34)
[2021-11-25] MEDS ORDERED: METOPROLOL TARTRATE 25 MG TAB PO STA (01:19)
[2021-11-25] MEDS: HEPARIN SOD,PORK IN 0.45% NACL 25,000 UNIT in 0.45% NACL 1 250ML.BAG IV SCH (02:15)
[2021-11-25] MEDS: PIPERACILLIN-TAZOBACTAM 3.375 GM in SODIUM CHLORIDE 0.9% 100 ML IVPB SCH ×3 (04:18→21:42)
[2021-11-25] MEDS: FAMOTIDINE 20 MG TAB PO SCH (06:10)
[2021-11-25] MEDS: CARBIDOPA-LEVODOPA 10-100 MG 1 EACH TAB PO SCH ×3 (06:10→21:43)
[2021-11-25] MEDS: MIDODRINE 5 MG TAB PO SCH ×3 (06:10→21:43)
--- NOTE | 2021-11-25 08:58 | XR ---
EXAMINATION TYPE: XR chest 1V portable DATE OF EXAM: 11/25/2021 COMPARISON: 11/23/2021 HISTORY: Hypoxia, elevated d-dimer TECHNIQUE: Single frontal view of the chest is obtained. FINDINGS: Bilateral patchy airspace disease is again noted. The aorta is ectatic and dense. Patient is rotated. No evident pneumothorax, difficult to exclude small pleural effusion. There are overlying artifacts. Old trauma to the left proximal humerus is noted. Bone mineralization is reduced. Stomach appears gas distended. IMPRESSION: Basilar atelectasis versus pneumonia, there may be associated effusion. Additional findi ngs above. Expiratory rotated exam.
[2021-11-25] MEDS ORDERED: ASPIRIN 81 MG PO SCH (09:00)
[2021-11-25] MEDS: ATORVASTATIN 20 MG TAB PO SCH (09:09)
[2021-11-25] MEDS: ASPIRIN 81 MG PO SCH (09:09)
[2021-11-25] MEDS: CYANOCOBALAMIN 500 MCG TAB PO SCH (09:09)
[2021-11-25] MEDS: METOPROLOL TARTRATE 25 MG TAB PO SCH ×3 (09:09→21:43)
[2021-11-25 10:31] LABS: Basophils % (A) 0 %; Eosinophils # (A) 0.1 k/uL (0-0.7); Eosinophils % (A) 1 %; HCT 37.1 % (34.0-46.0); HGB 11.8 gm/dL (11.4-16.0); Lymphocytes # (A) 0.5 k/uL (1.0-4.8); Lymphocytes % (A) 4 %; MCHC 31.8 g/dL (31.0-37.0); MCV 97.4 fL (80.0-100.0); Mean Platelet Volume 10.6; Monocytes # (A) 0.4 k/uL (0-1.0); Monocytes % (A) 3 %; Neutrophils # (A) 10.1 k/uL (1.3-7.7); Neutrophils % (A) 91 %; Platelet Count 242 k/uL (150-450); RBC 3.81 m/uL (3.80-5.40); RDW 12.9 % (11.5-15.5); WBC 11.1 k/uL (3.8-10.6)
[2021-11-25 10:47] LABS: Albumin 2.4 g/dL (3.5-5.0); Chloride 108 mmol/L (98-107); Glucose 102 mg/dL (74-99); Potassium 4.1 mmol/L (3.5-5.1); Sodium 139 mmol/L (137-145); Total Protein 5.2 g/dL (6.3-8.2)
[2021-11-25 10:49] LABS: ALT 12 U/L (4-34); AST 35 U/L (14-36); African American GFR (CKD) >90 (>60 ml/min/1.73 sqM); Alkaline Phosphatase 107 U/L (38-126); Anion Gap 5 mmol/L; Blood Urea Nitrogen 37 mg/dL (7-17); Calcium 8.3 mg/dL (8.4-10.2); Carbon Dioxide 26 mmol/L (22-30); Non-African American GFR(CKD) 87 (>60 ml/min/1.73 sqM); Total Bilirubin 0.8 mg/dL (0.2-1.3)
--- NOTE | 2021-11-25 12:09 | ECHOF ---
Referral Reason:Elevated D-Dimer/Shortness of Breath MEASUREMENTS -------- HEIGHT: 160.0 cm WEIGHT: 64.9 kg BP: 129/81 RVIDd: 2.5 cm (< 3.3) IVSd: 1.0 cm (0.6 - 1.1) LVIDd: 4.0 cm (3.9 - 5.3) LVPWd: 1.0 cm (0.6 - 1.1) IVSs: 1.5 cm LVIDs: 2.7 cm LVPWs: 1.4 cm LA Diam: 3.0 cm (2.7 - 3.8) Ao Diam: 3.4 cm (2.0 - 3.7) MV EXCURSION: 21.866 mm (> 18.000) MV EF SLOPE: 113 mm/s (70 - 150) EPSS: 1.7 cm RAP: 5.00 mmHg RVSP: 28.81 mmHg FINDINGS -------- This was a technically adequate study. The left ventricular size is normal. Left ventricular wall thickness is normal. Overall left vent ricular systolic function is normal with, an EF between 55 - 60 %. The right ventricle is normal in size. The left atrium is normal in size. The right atrium is normal in size. There is mild aortic valve sclerosis. The mitral valve leaflets are mildly thickened. Mild mitral annular calcification present. There is trace to mild mitral regurgitation. Mild tricuspid regurgitation present. Right ventricular systolic pressure is normal at < 35 mmHg. The pulmonic valve was not well visualized. The aortic root size is normal. IVC Not well visulized. There is no pericardial effusion. CONCLUSIONS -------- 1. The left ventricular size is normal. 2. Left ventricular wall thickness is normal. 3. Overall left ventricular systolic function is normal with, an EF between 55 - 60 %. 4. There is mild aortic valve sclerosis. 5. The mitral valve leaflets are mildly thickened. 6. Mild mitral annular calcification present. 7. There is trace to mild mitral regurgitation. 8. Mild tricuspid regurgitation present. 9. There is no pericardial effusion. MANHOLE BUILDER: Alise Aguero, [facility]
--- NOTE | 2021-11-25 14:55 | P.PN ---
Subjective This is a 76-year-old female with past medical history paroxysmal atrial fibrillation, unclear why patient is not on anticoagulation, COPD, and Parki nson's. Unknown if patient follows with a human resource consultant. We are consulted for elevated troponin. Patient presented emergency department from a long-term for shortness of breath and altered mental status, and increase oxygen requirements. Chest x-ray showed bibasilar pulmonary infiltrates right more than left patchy airspace disease concerning for multifocal pneumonia. Her troponins were 0.10, 0.14, 0.11. Patient was also found to have an elevated d-dimer, patient did have a CT angiogram completed that shows no evidence of central pulmonary embolis. Patient seen and examined at bedside, no acute distress. She denies chest pain or shortness of breath. She does have a cough. Her echocardiogram revealed an EF of 5560 percent, trace to mild mitral regurgitation, mild tricuspid regurgitation. She is maintaining sinus mechanism on the monitor. Blood pressure 145/91, heart rate 87, afebrile, saturations 96% on 6 L high flow nasal cannula She is currently maintained on aspirin 81 mg daily, atorvastatin 20 mg daily, losartan 50 mg nightly, metoprolol tartrate 25 mg 3 times a day GENERAL: in no acute distress. NECK: Supple without JVD or thyromegaly. LUNGS: Breath sounds diminished to auscultation bilaterally. Respiration equal and unlabored. No wheezes, rales or rhonchi. HEART: Regular rate and rhythm without murmurs, rubs or gallops. S1 and S2 heard. EXTREMITIES: Normal range of motion, no edema. No clubbing or cyanosis. Peripheral pulses intact. ASSESSMENT Shortness of breath Altered mental status Elevated troponin, trend not indicative of acute coronary syndrome, likely supply and demand mismatch. no ischemia noted on EKG, 2-D echocardiogram with normal left ventricular systolic function with no wall motion abnormalities. Bibasilar pneumonia COPD Paroxysmal atrial fibrillation CHADSvasc 3 Recent history of fall and ORIF of the right hip Dementia PLAN 2D echocardiogram revealed normal left ventricular systolic function with no wall motion abnormalities. Stop IV heparin and transition patient to Eliquis Discontinue aspirin Continue statin and beta corazon Further recommendations based on clinical course Nurse Practitioner note has been reviewed, I agree with a documented findings and plan of care. Patient was seen and examined. Objective - Vital Signs Vital signs: Vital Signs Temp 97.6 F 11/25/21 08:00 Pulse 87 11/25/21 12:00 Resp 18 11/25/21 13:45 BP 145/91 11/25/21 12:00 Pulse Ox 96 11/25/21 12:00 Intake & Output 11/24/21 11/25/21 11/25/21 18:59 06:59 18:59 Intake Total 86.143 153.734 86.435 Balance 86.143 153.734 86.435 Weight 64.864 kg Intake: Intake, IV Titration 86.143 153.734 86.435 Amount Heparin Sod,Pork in 0.45% 86.143 153.734 86.435 NaCl 25,000 unit In 0.45 % NaCl 1 250ml.bag @ 12 UNITS/KG/HR 7.784 mls/hr IV .Q24H [facility] Rx#: [id number] Other: Voiding Method External Catheter External Catheter # Voids 1 - Labs CBC & Chem 7: 11/25/21 10:06 11/25/21 10:06 Labs: Abnormal Lab Results - Last 24 Hours (Table) 11/24/21 11/24/21 11/25/21 Range/Units 15:54 15:54 10:06 WBC 11.1 H (3.8-10.6) k/uL Neutrophils # 10.1 H (1.3-7.7) k/uL Lymphocytes # 0.5 L (1.0-4.8) k/uL APTT 53.4 H (22.0-30.0) sec Chloride (98-107) mmol/L BUN (7-17) mg/dL Glucose (74-99) mg/dL Calcium (8.4-10.2) mg/dL Total Protein (6.3-8.2) g/dL Albumin (3.5-5.0) g/dL Procalcitonin 3.31 H (0.02-0.09) ng/mL 11/25/21 11/25/21 Range/Units 10:06 10:06 WBC (3.8-10.6) k/uL Neutrophils # (1.3-7.7) k/uL Lymphocytes # (1.0-4.8) k/uL APTT 40.7 H (22.0-30.0) sec Chloride 108 H (98-107) mmol/L BUN 37 H (7-17) mg/dL Glucose 102 H (74-99) mg/dL Calcium 8.3 L (8.4-10.2) mg/dL Total Protein 5.2 L (6.3-8.2) g/dL Albumin 2.4 L (3.5-5.0) g/dL Procalcitonin (0.02-0.09) ng/mL Microbiology - Last 24 Hours (Table) 11/23/21 21:48 Blood Culture - Preliminary Blood No Growth after 24 hours
--- NOTE | 2021-11-25 16:12 | P.PN ---
Subjective Progress Note Date: 11/25/21 History of present illness 76 years old female one of my clinic patient ( Dr. Castrejon ) with past medical history of paroxysmal atrial fibrillation, Parkinson disease, dementia chronic home O2 for COPD, COPD, history of osteoporosis comes in after she had a fall on 11/03 was noted to have nondisplaced right acetabular fracture .follows by Dr. Janett Akbar, and is on on 50% weightbearing as tolerated on the right hip.she was recovering very nicely at the [facility], however one day prior to admission, she was noted to have some cough, later on she was noted to have some hypoxemia.she was transferred to emergency room, secondary to the hypoxemia at 86%, on room air, decreased appetite,. She was transferred via ambulance, with O2, she had 3 negative rapid testcoronavirus antigen, and she is not vaccinated for the coronavirus.she is not anticoagulated for atrial fibrillation, secondary to recurrent falls In the emergency roomshe looks frail, imaging studies include CT angiogram, there is no evidence of pulmonary emboli, there is diffuse scattered groundglass pulmonary opacification, and consultation of lung bases bilateral. There is trace pleural effusion, CT of the brain, essentially negative for acute abnormalities, currently she is in the emergency room, pending bed availability, currently at 6 L nasal cannula, pulse ox at 99%.hemoglobin of 11.2, lymphocytes at 0.62 potassium low at 2.7being replaced, d-dimer of 5.3 creatinine of 1.2 urinalyses +1 ketones, urine WBC of 4 numerous hyalin cast peripheral smear, shows toxic granulation present, and toxic vacuolization 11/25: She is seen today sitting up in bed. She appears to be in no acute respiratory distress. She is on 6 L nasal cannula with pulse ox of 96%. She has been afebrile. Heart rate today is been running in the 70s and 80s, blood pressure 141/86. Repeat blood work reveals WBC 11.1 creatinine 0.65, BUN 37. Pro-calcitonin 3.31. Patient is on heparin drip due to elevated troponins and cardiology is planning to discontinue that today. Patient is also followed by pulmonary medicine. She is continued on Zosyn. Repeat chest x-ray reveals basilar atelectasis versus pneumonia, there may be associated effusion. Echocardiogram reveals EF 55-60%, mild aortic valve sclerosis, mild mitral regurgitation, mild tricuspid regurgitation. ROS Constitutional: Denies chills, Denies fever, Denies lethargy, Denies malaise, Denies poor appetite, Denies weakness, Denies weight loss Eyes: denies decreased vision, denies diplopia, denies discharge, denies pain Ears: deny: decreased hearing Ears, nose, mouth and throat: Denies dental pain, Denies headache, Denies nasal discharge, Denies nose pain Cardiovascular: Denies chest pain, Denies decreased exercise tolerance, Denies edema, Denies high blood pressure, Denies irregular heart beat, Denies p alpitations, Denies paroxysmal nocturnal dyspnea, Denies rapid heart beat, Denies shortness of breath Respiratory: Denies congestion, Denies cough, Denies cough with sputum, Denies dyspnea, Denies home oxygen, Denies wheezing Gastrointestinal: Denies abdominal pain, Denies change in bowel habits, Denies coffee ground emesis, Denies early satiety, Denies excessive gas, Denies heartburn, Denies hematemesis, Denies hematochezia, Denies loss of appetite, Denies nausea, Denies vomiting Genitourinary: Denies dysuria, Denies flank pain, Denies kidney stones, Denies menorrhagia, Denies urgency, Denies urinary frequency Musculoskeletal: Endorses gait dysfunction, endorses limitation of motion, Denies morning stiffness, Denies muscle cramps endorses right hip Integumentary: Denies rash, Denies wounds, Denies brittle nails, Denies change in hair/nails, Denies darkening of skin Neurological: Denies balance difficulties, Denies change in speech, Denies double vision, Denies gait dysfunction, Denies loss of vision, Denies motor disturbance, Denies numbness, Denies paralysis, Denies paresthesias, Denies seizures Psychiatric: Denies anxiety, Denies depression Endocrine: Denies excessive sweating, Denies excessive thirst, Denies high blood sugars, Denies palpitations Physical exam - Constitutional General appearance: cooperative, no acute distress, thin frail - EENT Eyes: anicteric sclerae, PERRLA, normal appearance ENT: hearing grossly normal - Neck Neck: no lymphadenopathy, normal ROM, no other, no rigidity, no stridor, no thyromegaly - Respiratory Respiratory: bilateral: CTA, negative: diminished, dullness, rales, rhonchi - Cardiovascular Rhythm: regular Heart sounds: normal: S1, S2 Abnormal Heart Sounds: no systolic murmur, no diastolic murmur, no rub, no S3 Gallop, no S4 Gallop, no click, no other - Gastrointestinal General gastrointestinal: normal bowel sounds, soft nontender - Integumentary Integumentary: no rash - Neurologic Neurologic no sensorimotor deficit - Musculoskeletal Musculoskeletal: Pain involving the right hip worse on motion. Patient able to lift her leg can move her legs without any difficulty stopping neurovascular sta tus is intact - Psychiatric Psychiatric: A&O to person and place, flattened affect. Assessment and plan 1. Acute pneumonia with hypoxemia, acute on chronic respiratory hypoxic failure, suspect aspiration, speech eval,IV Zosyn, consult with pulmonary appreciated. 2. Right acetabular fracture with fall on 11/03/2021. No plan for surgery with 50% weightbearing on the right lower extremity. PTOT consult with return to subacute rehabto help with gait instability 3. Parkinson's, with recurrent falls, continue on Sinemet 10/100 3 times a day, and amantadine 100 twice a day 4. Autonomic hypotension with dehydration, acute kidney injury, with ATN -Continue midodrine 10 mg 3 times a day 5. History of paroxysmal atrial fibrillation Patient not on any rate controlling medication or any blood thinnersecondary to multiple falls 6. Dysphagia, possibly secondary to frailty has sarcopenia, check fo esophagram, has food and pill dysphagia. Might need modified barium swallow evalspeech consult 7. Hypo-kalemia, replacement in progress 8. Elevated troponin, most likely secondary to sepsis. ALLERGY consult appreciated. Heparin to be discontinued. 7 Depression -Continue Zoloft and 25 mg by mouth daily 9 coronavirus vaccination, not vaccinated 10 coronary virus PCR test, negative 11 DVT prophylaxis Heparin every 12 DISCHARGE PLAN Return to [facility] Impression and plan of care have been directed as dictated by the signing physician. Leslie Jaramillo nurse practitioner acting as scribe for signing physician. Objective - Vital Signs Vital signs: Vital Signs Temp 97.6 F 11/25/21 08:00 Pulse 75 11/25/21 08:00 Resp 18 11/25/21 08:00 BP 141/86 11/25/21 08:00 Pulse Ox 97 11/25/21 08:00 Intake & Output 11/24/21 11/25/21 11/25/21 18:59 06:59 18:59 Intake Total 86.143 153.734 86.435 Balance 86.143 153.734 86.435 Weight 64.864 kg Intake: Intake, IV Titration 86.143 153.734 86.435 Amount Heparin Sod,Pork in 0.45% 86.143 153.734 86.435 NaCl 25,000 unit In 0.45 % NaCl 1 250ml.bag @ 12 UNITS/KG/HR 7.784 mls/hr IV .Q24H [facility] Rx#: [id number] Other: Voiding Method External Catheter External Catheter # Voids 1 - Labs CBC & Chem 7: 11/25/21 10:06 11/25/21 10:06 Labs: Abnormal Lab Results - Last 24 Hours (Table) 11/24/21 11/24/21 11/25/21 Range/Units 15:54 15:54 10:06 WBC 11.1 H (3.8-10.6) k/uL Neutrophils # 10.1 H (1.3-7.7) k/uL Lymphocytes # 0.5 L (1.0-4.8) k/uL APTT 53.4 H (22.0-30.0) sec Chloride (98-107) mmol/L BUN (7-17) mg/dL Glucose (74-99) mg/dL Calcium (8.4-10.2) mg/dL Total Protein (6.3-8.2) g/dL Albumin (3.5-5.0) g/dL Procalcitonin 3.31 H (0.02-0.09) ng/mL 11/25/21 11/25/21 Range/Units 10:06 10:06 WBC (3.8-10.6) k/uL Neutrophils # (1.3-7.7) k/uL Lymphocytes # (1.0-4.8) k/uL APTT 40.7 H (22.0-30.0) sec Chloride 108 H (98-107) mmol/L BUN 37 H (7-17) mg/dL Glucose 102 H (74-99) mg/dL Calcium 8.3 L (8.4-10.2) mg/dL Total Protein 5.2 L (6.3-8.2) g/dL Albumin 2.4 L (3.5-5.0) g/dL Procalcitonin (0.02-0.09) ng/mL Microbiology - Last 24 Hours (Table) 11/23/21 21:48 Blood Culture - Preliminary Blood No Growth after 24 hours
--- NOTE | 2021-11-25 16:42 | FL ---
EXAMINATION TYPE: FL barium swallow w video DATE OF EXAM: 11/25/2021 COMPARISON: NONE HISTORY: Dysphasia TECHNIQUE: Fluoroscopy. FINDINGS: Fluoroscopic guidance was provided for the procedure performed in conjunction with the [facility] pathology department. Please see complete report forthcoming from the Speech Pathology departmen t. Various consistencies from thin liquid to solids were administered. Fluoroscopy time 3 minutes 30 seconds. Number of images: 0. Deep penetration with thin liquids was evident. No penetration or aspiration is evident with nectar t hick and greater consistencies. Mild pooling was observed in the vallecula. There is delayed swallowing. IMPRESSION: 1. Deep penetration with thin liquids. No aspiration or penetration with nectar thick and greater con sistencies. 2. Mild pooling within the vallecula. 3. Poor bolus formation and delayed swallowing.
--- NOTE | 2021-11-25 18:27 | P.PN ---
Subjective Progress Note Date: 11/25/21 Principal diagnosis: Acute hypoxic respiratory failure secondary to bibasilar pneumonia and small bilateral pleural effusions, possible underlying acute diastolic congestive heart failure 76-year-old female patient was brought into the emergency department yesterday because of shortness of breath and altered mental status.. The patient was very weak and lethargic for the past 2 days. She is normally on home O2 at 2 L per minute nasal cannula and sometimes she uses 4 L. She was negative for covert 19. She came in with worsening shortness of breath and lightheadedness. She denies having any chest pain. No reported fever or chills. No pleurisy. No hemoptysis. In the emergency department, the patient was found to be afebrile. Initial blood pressure was 95/63. Pulse ox was 86% on room air oxygen. The chest x-ray showed bibasilar pulmonary infiltrates right more than left patchy airspace disease concerning for multifocal pneumonia and there is some background COPD in addition. The patient was supple with a 4.7 with hemoglobin 9.5 and a platelet count of 176. TPN was 79 with a creatinine of 1.2. Sodium is at 137 and the potassium was at 3.2, BMI was 79 and a creatinine was 1.2. The patient had normal coagulation profile. D-dimer was at 5.3. LFTs were normal. The patient's lactic acid level was at 1.0. Troponin was 0.1. ProBNP level was 5000. CT angiogram was done and the patient had no evidence of any pulmonary embolism. There was diffuse scattered groundglass pulmonary opacities and some consolidation of the lung bases bilaterally. Trace pleural effusions were also seen. SHe is a [place] resident and she had a fall and she had ORIF of the right hip and since then she has been in the [place]. The CAT scan of the brain was essentially negative for any acute abnormalities. The patient is currently on 6 L by nasal cannula. Her current pulse ox is 99%. Reevaluated today on 11/25/21, patient is feeling better, she is on 6 L nasal cannula, and her O2 saturations 96%. Patient does not seem to be in any distress. She is on antibiotics for presumptive pneumonia, she is also on diuretics, and over the last 24 hours there have been some improvement. Chest x-ray today showed bibasilar pneumonia and small effusions, and she count is 11.1 hemoglobin is 11.8. PTT is 40.7. Therapeutic. Electrolytes are normal, renal profile is normal. Pro-calcitonin is 3.31 which seems to be in favor of underlying pneumonia as noted by Dr. Francois on admission. Objective - Vital Signs Vital signs: Vital Signs Temp 97.6 F 11/25/21 08:00 Pulse 87 11/25/21 16:00 Resp 16 11/25/21 16:00 BP 143/90 11/25/21 16:00 Pulse Ox 96 11/25/21 16:00 Intake & Output 11/24/21 11/25/21 11/25/21 18:59 06:59 18:59 Intake Total 86.143 153.734 266.435 Balance 86.143 153.734 266.435 Weight 64.864 kg Intake: Intake, IV Titration 86.143 153.734 86.435 Amount Heparin Sod,Pork in 0.45% 86.143 153.734 86.435 NaCl 25,000 unit In 0.45 % NaCl 1 250ml.bag @ 12 UNITS/KG/HR 7.784 mls/hr IV .Q24H [facility] Rx#: [id number] Oral 180 Other: Voiding Method External Catheter External Catheter # Voids 1 2 - Exam Physical Exam revealed 76-year-old female chronically ill, on 6 L nasal cannula. Not in distress. Head: Atraumatic normocephalic. HEENT:[Neck is supple.] [No neck masses.] [No thyromegaly.] [No JVD.] Chest: [Symmetrical chest expansion crackles at the bases no rhonchi and no wheezes Cardiac Exam: Irregular irregular rhythm. [Normal S1 and S2, no S3 gallop, no murmur.] Abdomen: [Soft, nontender, no megaly, no rebound, no guarding, normal bowel sounds.] Extremities: [No clubbing, no edema, no cyanosis.] Neurological Exam: [No focal neurologic deficit.] Alert oriented 3. Psychiatric: Normal mood affect and normal mental status examination. Skin: No rashes - Labs CBC & Chem 7: 11/25/21 10:06 11/25/21 10:06 Labs: Abnormal Lab Results - Last 24 Hours (Table) 11/24/21 11/25/21 11/25/21 Range/Units 15:54 10:06 10:06 WBC 11.1 H (3.8-10.6) k/uL Neutrophils # 10.1 H (1.3-7.7) k/uL Lymphocytes # 0.5 L (1.0-4.8) k/uL APTT (22.0-30.0) sec Chloride 108 H (98-107) mmol/L BUN 37 H (7-17) mg/dL Glucose 102 H (74-99) mg/dL Calcium 8.3 L (8.4-10.2) mg/dL Total Protein 5.2 L (6.3-8.2) g/dL Albumin 2.4 L (3.5-5.0) g/dL Procalcitonin 3.31 H (0.02-0.09) ng/mL 11/25/21 Range/Units 10:06 WBC (3.8-10.6) k/uL Neutrophils # (1.3-7.7) k/uL Lymphocytes # (1.0-4.8) k/uL APTT 40.7 H (22.0-30.0) sec Chloride (98-107) mmol/L BUN (7-17) mg/dL Glucose (74-99) mg/dL Calcium (8.4-10.2) mg/dL Total Protein (6.3-8.2) g/dL Albumin (3.5-5.0) g/dL Procalcitonin (0.02-0.09) ng/mL Microbiology - Last 24 Hours (Table) 11/23/21 21:48 Blood Culture - Preliminary Blood No Growth after 24 hours Assessment and Plan Assessment: Pression: Acute on chronic hypoxic respiratory failure secondary to bibasilar pneumonia and possibly some component of acute diastolic congestive heart failure History of underlying COPD, patient is maintained on oxygen at home at 2 L. Chronic paroxysmal atrial fibrillation. Recent history of fall and open reduction with internal fixation of right hip History of Parkinson's disease Generalized medical debility History of dementia Recommendation: Continue oxygen and titrate accordingly Continue antibiotics. Patient is on Zosyn. Continue Lasix Continue to monitor electrolytes and renal profile. Titrate oxygen as tolerated We will continue to follow. Time with Patient: Less than 30
[2021-11-25] MEDS: APIXABAN 5 MG TAB PO SCH (21:42)
[2021-11-25] MEDS: SERTRALINE 25 MG TAB PO SCH (21:43)
[2021-11-25] MEDS: LOSARTAN 50 MG TAB PO SCH (21:43)
[2021-11-26] MEDS: PIPERACILLIN-TAZOBACTAM 3.375 GM in SODIUM CHLORIDE 0.9% 100 ML IVPB SCH ×3 (04:29→21:56)
[2021-11-26] MEDS: MIDODRINE 5 MG TAB PO SCH ×3 (06:04→21:57)
[2021-11-26] MEDS: CARBIDOPA-LEVODOPA 10-100 MG 1 EACH TAB PO SCH ×3 (06:04→21:59)
[2021-11-26] MEDS: FAMOTIDINE 20 MG TAB PO SCH (06:04)
[2021-11-26] MEDS: APIXABAN 5 MG TAB PO SCH ×2 (09:29→21:57)
[2021-11-26] MEDS: ATORVASTATIN 20 MG TAB PO SCH (09:29)
[2021-11-26] MEDS: CYANOCOBALAMIN 500 MCG TAB PO SCH (09:30)
[2021-11-26] MEDS: METOPROLOL TARTRATE 25 MG TAB PO SCH (09:30)
--- NOTE | 2021-11-26 09:45 | CDI ---
Documentation Clarification Form Date: 11/26/2021 09:29:43 AM From: Monalisa Campo CCS, CCDS Admit Date: 11/23/2021 07:54:00 PM Patient Name: Valerie Wang Visit Number: [id number] Discharge Date: ATTENTION: The Clinical Documentation Specialists (CDI) and [facility] Coding Staff appreciate your assistance in clarifying documentation. Please respond to the clarification below the line at the bottom and electronically sign. The CDI & [facility] Coding staff will review the response and follow-up if needed. Please note: Queries are made part of the Legal Health Record. If you have any questions, please contact the author of this message via ITS. Dr. Xavier Barber: Per the 11/25 Cardiology Progress Note: We are consulted for elevated troponin. Assessment: Elevated troponin, trend not indicative of acute coronary syndrome, likely supply and demand mismatch. no ischemia noted on EKG, 2-D echocardiogram with normal left ventricular systolic function with no wall motion abnormalities. Additional clarification regarding the etiology of the Elevated Troponins is requested. Patient History/Risk Factors per the 11/24 H/P: Paroxysmal Atrial Fibrillation, Parkinson's Disease, Dementia, Home O2 for COPD, Osteoporosis (recent fall with nondisplaced right acetabular fracture on 11/03), Depression. Clinical Indicators: [facility] ED [facility] with SOB, weakness & lethargy for two days. Recently tested negative for COVID, not vaccinated against COVID. Admit with Hypoxia, Elevated Troponin, Altered Mental Status, Pneumonia Per the H/P Assessment: Acute Pneumonia with Hypoxemia, Acute on Chronic Respiratory Hypoxic Failure, Suspect Aspiration, Elevated Troponin, most likely secondary to Sepsis. 11/23 VS: T 98.5, P 99, R 22 (sob), BP 95/63, PO 86 RA - 93 10% nrb, BMI: 25.3 11/23 LAB: Hgb 9.5, Hct 29.2, Lymph 0.2; D Dimer 5.30; K 3.2, CO2 20, BUN 79, Creatinine 1.20, Lactic Acid 1.0, Calcium 8.3, Magnesium 2.4, Alk Phos 130, Total Protein 5.7, Albumin 2.9. Troponin: 0.106, 0.142; 1/16: 0.113 11/23 EKG: R 99 nsr, Nonspecific ST & T wave abnormality. 11/25 ECHO: Left ventricular systolic function wnl, EF 55-60%, Mild aortic valve sclerosis, Mild mitral annular calcification, Trace - mild MR, Mild TR. Treatment: Telemetry, Heparin rip, Blood cultures, Occult Blood, O2 2Lnc, INH Duoneb, po Aspirin 324 mg x1, IV Na Cl 500 mls q31M, IV Zosyn x1, IV Azithromycin x1 Please clarify the following: [ ] Type 2 W[place] due to Sepsis [ ] Type 2 [place] due to Acute Respiratory Failure [ ] Type 2 [place] due to other, please specify: [ ] Other, please specify: [ ] Unable to determine (Template Last Revised: January 2021) Impression Unable to determine the exact cause of the troponin elevation MTDD
--- NOTE | 2021-11-26 12:50 | CT ---
EXAMINATION TYPE: CT brain wo con DATE OF EXAM: 11/26/2021 COMPARISON: 11/23/2021 HISTORY: Mental status change CT DLP: 1094.4 mGycm Automated exposure control for dose reduction was used. FINDINGS: Orbits are symmetric. Intracranial atherosclerotic changes are noted greater there is moderate genera lized degenerative change and low attenuation throughout the white matter is a nonspecific pattern bu t most typical remote white matter ischemia. There is no midline shift or mass effect. No acute hemorrhage. Asymmetric soft tissue prominence over lying the right orbit. Craniocervical junction maintained. Sella turcica has a normal appearance. Calvarium intact. 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 IMPRESSION: 1. Degenerative nonspecific white matter changes most typical remote ischemia. No acute hemorrhage or mass effect. 2. If there is concern for acute ischemia correlate with MRI as clinically warranted. 3 stable intrao sseous lesion of the frontal bone is stable from exam of 2019 and therefore likely benign. Intraosseo us hemangioma of the calvarium within the differential diagnosis.
--- NOTE | 2021-11-26 13:55 | P.PN ---
Subjective Progress Note Date: 11/26/21 History of present illness 76 years old female one of my clinic patient ( Dr. Castrejon ) with past medical history of paroxysmal atrial fibrillation, Parkinson disease, dementia chronic home O2 for COPD, COPD, history of osteoporosis comes in after she had a fall on 11/03 was noted to have nondisplaced right acetabular fracture .follows by Dr. Janett Akbar, and is on on 50% weightbearing as tolerated on the right hip.she was recovering very nicely at the [facility], however one day prior to admission, she was noted to have some cough, later on she was noted to have some hypoxemia.she was transferred to emergency room, secondary to the hypoxemia at 86%, on room air, decreased appetite,. She was transferred via ambulance, with O2, she had 3 negative rapid testcoronavirus antigen, and she is not vaccinated for the coronavirus.she is not anticoagulated for atrial fibrillation, secondary to recurrent falls In the emergency roomshe looks frail, imaging studies include CT angiogram, there is no evidence of pulmonary emboli, there is diffuse scattered groundglass pulmonary opacification, and consultation of lung bases bilateral. There is trace pleural effusion, CT of the brain, essentially negative for acute abnormalities, currently she is in the emergency room, pending bed availability, currently at 6 L nasal cannula, pulse ox at 99%.hemoglobin of 11.2, lymphocytes at 0.62 potassium low at 2.7being replaced, d-dimer of 5.3 creatinine of 1.2 urinalyses +1 ketones, urine WBC of 4 numerous hyalin cast peripheral smear, shows toxic granulation present, and toxic vacuolization 11/25: She is seen today sitting up in bed. She appears to be in no acute respiratory distress. She is on 6 L nasal cannula with pulse ox of 96%. She has been afebrile. Heart rate today is been running in the 70s and 80s, blood pressure 141/86. Repeat blood work reveals WBC 11.1 creatinine 0.65, BUN 37. Pro-calcitonin 3.31. Patient is on heparin drip due to elevated troponins and cardiology is planning to discontinue that today. Patient is also followed by pulmonary medicine. She is continued on Zosyn. Repeat chest x-ray reveals basilar atelectasis versus pneumonia, there may be associated effusion. Echocardiogram reveals EF 55-60%, mild aortic valve sclerosis, mild mitral regurgitation, mild tricuspid regurgitation. 11/26: Patient failed modified barium swallow and speech therapy has recommended pured diet with nectar thick liquids, aspiration precautions, no straws. According to nursing staff, patient ate a little bit this morning but then goes to sleep. Due to concern for mental status changes. Repeat CAT scan of the brain revealed degenerative nonspecific white matter changes. No acute hemorrhage or mass effect.. No need for neurology consult at this time. She has been afebrile, heart rate 97, blood pressure 161/91, pulse ox 96% on 4 L nasal cannula. Heparin drip was discontinued yesterday and patient started on eliquis by cardiology. She is continued on Zosyn and followed by pulmonary medicine and cardiology. ROS Unable to obtain due to patient's mental status Physical exam - Constitutional General appearance: cooperative, no acute distress, thin frail - EENT Eyes: anicteric sclerae, PERRLA, normal appearance ENT: hearing grossly normal - Neck Neck: no lymphadenopathy, normal ROM, no other, no rigidity, no stridor, no thyromegaly - Respiratory Respiratory: bilateral: CTA, negative: diminished, dullness, rales, rhonchi - Cardiovascular Rhythm: regular Heart sounds: normal: S1, S2 Abnormal Heart Sounds: no systolic murmur, no diastolic murmur, no rub, no S3 Gallop, no S4 Gallop, no click, no other - Gastrointestinal General gastrointestinal: normal bowel sounds, soft nontender - Integumentary Integumentary: no rash - Neurologic Neurologic no sensorimotor deficit - Musculoskeletal Musculoskeletal: Generalized weakness, no noted deformity - Psychiatric Psychiatric: Patient does not arouse to verbal stimuli. Assessment and plan 1. Acute pneumonia with hypoxemia, acute on chronic respiratory hypoxic failure, suspect aspiration, speech eval,IV Zosyn, consult with pulmonary appreciated. Continue. Diet with nectar thick liquids. 2. Right acetabular fracture with fall on 11/03/2021. No plan for surgery with 50% weightbearing on the right lower extremity. PTOT consult with return to subacute rehabto help with gait instability 3. Parkinson's, with recurrent falls, continue on Sinemet 10/100 3 times a day, and amantadine 100 twice a day 4. Autonomic hypotension with dehydration, acute kidney injury, with ATN -Continue midodrine 10 mg 3 times a day 5. History of paroxysmal atrial fibrillation Patient not on any rate controlling medication or any blood thinnersecondary to multiple falls 6. Dysphagia, possibly secondary to frailty has sarcopenia, check fo esophagram, has food and pill dysphagia. Might need modified barium swallow evalspeech consult 7. Hypo-kalemia, replacement in progress 8. Elevated troponin, most likely secondary to sepsis. ALLERGY consult appreciated. Heparin to be discontinued. 7 Depression -Continue Zoloft and 25 mg by mouth daily 9 coronavirus vaccination, not vaccinated 10 coronary virus PCR test, negative 11 DVT prophylaxis Heparin every 12 DISCHARGE PLAN Return to [facility] Impression and plan of care have been directed as dictated by the signing ph ysician. Leslie Jaramillo nurse practitioner acting as scribe for signing physician. Objective - Vital Signs Vital signs: Vital Signs Temp 99.1 F 11/26/21 11:27 Pulse 97 11/26/21 11:27 Resp 18 11/26/21 11:27 BP 161/91 11/26/21 11:27 Pulse Ox 96 11/26/21 11:27 Intake & Output 11/25/21 11/26/21 11/26/21 18:59 06:59 18:59 Intake Total 266.435 90 Output Total 500 Balance 266.435 -500 90 Intake: Intake, IV Titration 86.435 Amount Heparin Sod,Pork in 0.45% 86.435 NaCl 25,000 unit In 0.45 % NaCl 1 250ml.bag @ 12 UNITS/KG/HR 7.784 mls/hr IV .Q24H [facility] Rx#: [id number] Oral 180 90 Output: Urine 500 Other: Voiding Method External Catheter External Catheter # Voids 2 - Labs CBC & Chem 7: 11/25/21 10:06 11/25/21 10:06 Labs: Microbiology - Last 24 Hours (Table) 11/23/21 21:48 Blood Culture - Preliminary Blood No Growth after 48 hours
--- NOTE | 2021-11-26 14:20 | P.PN ---
Subjective Progress Note Date: 11/26/21 Principal diagnosis: dyspnea, hypoxia 76-year-old female patient was brought into the emergency department yesterday because of shortness of breath and altered mental status.. The patient was very weak and lethargic for the past 2 days. She is normally on home O2 at 2 L per minute nasal cannula and sometimes she uses 4 L. She was negative for covert 19. She came in with worsening shortness of breath and lightheadedness. She denies having any chest pain. No reported fever or chills. No pleurisy. No hemoptysis. In the emergency department, the patient was found to be afebrile. Initial blood pressure was 95/63. Pulse ox was 86% on room air oxygen. The chest x-ray showed bibasilar pulmonary infiltrates right more than left patchy airspace disease concerning for multifocal pneumonia and there is some background COPD in addition. The patient was supple with a 4.7 with hemoglobin 9.5 and a platelet count of 176. TPN was 79 with a creatinine of 1.2. Sodium i s at 137 and the potassium was at 3.2, BMI was 79 and a creatinine was 1.2. The patient had normal coagulation profile. D-dimer was at 5.3. LFTs were normal. The patient's lactic acid level was at 1.0. Troponin was 0.1. ProBNP level was 5000. CT angiogram was done and the patient had no evidence of any pulmonary embolism. There was diffuse scattered groundglass pulmonary opacities and some consolidation of the lung bases bilaterally. Trace pleural effusions were also seen. SHe is a [facility] resident and she had a fall and she had ORIF of the right hip and since then she has been in the [place]. The CAT scan of the brain was essentially negative for any acute abnormalities. The patient is currently on 6 L by nasal cannula. Her current pulse ox is 99%. Reevaluated today on 11/25/21, patient is feeling better, she is on 6 L nasal cannula, and her O2 saturations 96%. Patient does not seem to be in any distress. She is on antibiotics for presumptive pneumonia, she is also on diuretics, and over the last 24 hours there have been some improvement. Chest x-ray today showed bibasilar pneumonia and small effusions, and she count is 11.1 hemoglobin is 11.8. PTT is 40.7. Therapeutic. Electrolytes are normal, renal profile is normal. Pro-calcitonin is 3.31 which seems to be in favor of underlying pneumonia as noted by Dr. Francois on admission. on 11/26/2021 patient seen in follow-up on selective care unit, she is lethargic, but wakes up to verbal stimulation, she is able to provide some simple one or 2 word answers, does not appear to be in any acute distress, on 6 L of oxygen her pulse ox is 98% and FiO2 has further been decreased down to 4 L, her pulse ox remained stable, she is breathing comfortably, lung sounds reveal diminished breath sounds, overall patient is weak, she is recovering from recent hip surgery and following her hip surgery patient developed bilateral pneumonia, and was readmitted and we were consulted for pulmonary management. patient was evaluated by speech therapy she had a modified barium swallow which showed deep penetration with thin liquids, no aspiration or penetration with nectar thick and greater consistencies, there was mild pooling within the vallecula, and poor bolus formation and delayed swallowing. patient is currently on a heart healthy diet with that are thick liquids, aspiration precautions, and dysphagia level I pured consistency solids. today's labs have been reviewed, white blood cell count is 11.1, hemoglobin is 11.8, sodium is 139, potassium is 4.1, chloride is 108, BUN is improved and is down to 37, creatinine is 0.65. Pro-calcitonin level was increased at 3.31 confirming possibility of aspiration pneumonia. Patient is on Zosyn for empiric antibiotic coverage.blood cultures have been negative, patient was unable to produce a sputum specimen for culture. Vital signs have been stable, no worsening dyspnea or hypoxia overnight. Generally she seems to be debilitated, she has difficulty sitting up unassisted. Physical therapy is consulted Objective - Vital Signs Vital signs: Vital Signs Temp 99.1 F 11/26/21 11:27 Pulse 97 11/26/21 11:27 Resp 18 11/26/21 11:27 BP 161/91 11/26/21 11:27 Pulse Ox 96 11/26/21 11:27 Intake & Output 11/25/21 11/26/21 11/26/21 18:59 06:59 18:59 Intake Total 266.435 90 Output Total 500 Balance 266.435 -500 90 Intake: Intake, IV Titration 86.435 Amount Heparin Sod,Pork in 0.45% 86.435 NaCl 25,000 unit In 0.45 % NaCl 1 250ml.bag @ 12 UNITS/KG/HR 7.784 mls/hr IV .Q24H [facility] Rx#: [id number] Oral 180 90 Output: Urine 500 Other: Voiding Method External Catheter External Catheter # Voids 2 - Exam GENERAL EXAM: Somnolent but very weak, debilitated, but comfortable 76 white female, on 4l/min with Pulse ox of 96% in no apparent distress. HEAD: Normocephalic/atraumatic. EYES: Normal reaction of pupils, equal size. Conjunctiva pink, sclera white. NOSE: Clear with pink turbinates. THROAT: No erythema or exudates. NECK: No masses, no JVD, no thyroid enlargement, no adenopathy. CHEST: No chest wall deformity. Symmetrical expansion. LUNGS: Equal air entry with crackles CVS: Regular rate and rhythm, normal S1 and S2, no gallops, no murmurs, no rubs ABDOMEN: Soft, nontender. No hepatosplenomegaly, normal bowel sounds, no guarding or rigidity. EXTREMITIES: No clubbing, no edema, no cyanosis, 2+ pulses and upper and lower extremities. MUSCULOSKELETAL: Muscle strength and tone normal. SPINE: No scoliosis or deformity SKIN: No rashes CENTRAL NERVOUS SYSTEM: Lethargic, but awakens to voice. No focal deficits, tone is normal in all 4 extremities. - Labs CBC & Chem 7: 11/25/21 10:06 11/25/21 10:06 Labs: Microbiology - Last 24 Hours (Table) 11/23/21 21:48 Blood Culture - Preliminary Blood No Growth after 48 hours Assessment and Plan Plan: Assessment: #1. Acute on chronic hypoxic respiratory failure secondary to bibasilar pneumonia possibly related to aspiration, COVID 19 PCR was negative #2. History of underlying COPD, patient is usually maintained on 2 L of oxygen at home on a regular basis #3. Chronic paroxysmal atrial fibrillation #4. Recent history of a fall, with right hip fracture, status post open reduction with internal fixation #5. History of Parkinson's disease #6. Generalized medical debility #7. History of dementia #8. Suspect chronic aspiration, modified barium swallow showed deep penetration with thin liquids. There was no aspiration or penetration noted with nectar thick greater consistencies, patient is currently on dysphagia level I diet with pured solids and nectar thick liquids with recommended aspiration precautions Plan: Continue weaning oxygen to maintain O2 sat of 90-92% No worsening dyspnea, no cough, no fever or chills Continue current antibiotic coverage Clinically appears to be stable, and improving Continue modified diet Continue aspiration precautions I performed a history & physical examination of the patient and discussed their management with my nurse practitioner, Ekta Sweet. I reviewed the nurse practitioner's note and agree with the documented findings and plan of care. Lung sounds are positive for diffuse wheezes throughout the lung curtis. The findings and the impression was discussed with the patient. I attest to the documentation by the nurse practitioner. Time with Patient: Less than 30
--- NOTE | 2021-11-26 14:20 | P.PN ---
Subjective This is a 76-year-old female with past medical history paroxysmal atrial fibrillation, unclear why patient is not on anticoagulation, COPD, and Parki nson's. Unknown if patient follows with a credit and collections representative. We are consulted for elevated troponin. Patient presented emergency department from a skilled nursing for shortness of breath and altered mental status, and increase oxygen requirements. Chest x-ray showed bibasilar pulmonary infiltrates right more than left patchy airspace disease concerning for multifocal pneumonia. Her troponins were 0.10, 0.14, 0.11. Patient was also found to have an elevated d-dimer, patient did have a CT angiogram completed that shows no evidence of central pulmonary embolis. 11/26/21 Patient seen and examined at bedside, no acute distress. Lethargic today, and repeat CT brain ordered. She denies chest pain or shortness of breath. She does have a cough. Her echocardiogram revealed an EF of 5560 percent, trace to mild mitral regurgitation, mild tricuspid regurgitation. She is maintaining sinus mechanism on the monitor. Blood pressure 161/91, heart rate 97, afebrile, saturations 96% on 4 L nasal cannula She is currently maintained on aspirin 81 mg daily, atorvastatin 20 mg daily, losartan 50 mg nightly, metoprolol tartrate 25 mg 3 times a day GENERAL: in no acute distress. NECK: Supple without JVD or thyromegaly. LUNGS: Breath sounds diminished to auscultation bilaterally. Respiration equal and unlabored. No wheezes, rales or rhonchi. HEART: Regular rate and rhythm without murmurs, rubs or gallops. S1 and S2 heard. EXTREMITIES: Normal range of motion, no edema. No clubbing or cyanosis. Peripheral pulses intact. ASSESSMENT Shortness of breath Altered mental status Elevated troponin, trend not indicative of acute coronary syndrome, likely supply and demand mismatch. no ischemia noted on EKG, 2-D echocardiogram with normal left ventricular systolic function with no wall motion abnormalities. Bibasilar pneumonia COPD Paroxysmal atrial fibrillation CHADSvasc 3 Recent history of fall and ORIF of the right hip Dementia PLAN Increase losartan to 100mg nightly Increase metoprolol to 50mg BID 2D echocardiogram revealed normal left ventricular systolic function with no wall motion abnormalities. Continue Eliquis, patient is being discharged to skilled nursing at [facility] Discontinue aspirin Continue statin Further recommendations based on clinical course Nurse Practitioner note has been reviewed, I agree with a documented findings and plan of care. Patient was seen and examined. Objective - Vital Signs Vital signs: Vital Signs Temp 99.1 F 11/26/21 11:27 Pulse 97 11/26/21 11:27 Resp 18 11/26/21 11:27 BP 161/91 11/26/21 11:27 Pulse Ox 96 11/26/21 11:27 Intake & Output 11/25/21 11/26/21 11/26/21 18:59 06:59 18:59 Intake Total 266.435 90 Output Total 500 Balance 266.435 -500 90 Intake: Intake, IV Titration 86.435 Amount Heparin Sod,Pork in 0.45% 86.435 NaCl 25,000 unit In 0.45 % NaCl 1 250ml.bag @ 12 UNITS/KG/HR 7.784 mls/hr IV .Q24H [facility] Rx#: [id number] Oral 180 90 Output: Urine 500 Other: Voiding Method External Catheter External Catheter # Voids 2 - Labs CBC & Chem 7: 11/25/21 10:06 11/25/21 10:06 Labs: Microbiology - Last 24 Hours (Table) 11/23/21 21:48 Blood Culture - Preliminary Blood No Growth after 48 hours
[2021-11-26 17:56] LABS: Glucose,Whole Blood 84 mg/dL (75-99)
[2021-11-26 18:36] LABS: Basophils % (A) 0 %; Eosinophils % (A) 0 %; HCT 36.9 % (34.0-46.0); HGB 11.7 gm/dL (11.4-16.0); Hypochromasia Slight; Lymphocytes # (A) 0.4 k/uL (1.0-4.8); Lymphocytes % (A) 3 %; MCH 30.6 pg (25.0-35.0); MCHC 31.6 g/dL (31.0-37.0); MCV 96.8 fL (80.0-100.0); Mean Platelet Volume 10.4; Monocytes # (A) 0.6 k/uL (0-1.0); Monocytes % (A) 4 %; Neutrophils # (A) 13.2 k/uL (1.3-7.7); Neutrophils % (A) 92 %; Platelet Count 227 k/uL (150-450); RBC 3.82 m/uL (3.80-5.40); RDW 13.3 % (11.5-15.5); WBC 14.4 k/uL (3.8-10.6)
[2021-11-26 18:49] LABS: African American GFR (CKD) >90 (>60 ml/min/1.73 sqM); Anion Gap 12 mmol/L; Blood Urea Nitrogen 18 mg/dL (7-17); Calcium 8.1 mg/dL (8.4-10.2); Carbon Dioxide 26 mmol/L (22-30); Chloride 104 mmol/L (98-107); Glucose 92 mg/dL (74-99); Non-African American GFR(CKD) >90 (>60 ml/min/1.73 sqM); Potassium 3.6 mmol/L (3.5-5.1); Sodium 142 mmol/L (137-145)
[2021-11-26] MEDS: METOPROLOL TARTRATE 50 MG TAB PO SCH (21:57)
[2021-11-26] MEDS: SERTRALINE 25 MG TAB PO SCH (21:57)
[2021-11-26] MEDS: LOSARTAN 50 MG TAB PO SCH (21:58)
[2021-11-27] MEDS: PIPERACILLIN-TAZOBACTAM 3.375 GM in SODIUM CHLORIDE 0.9% 100 ML IVPB SCH ×3 (04:20→21:32)
[2021-11-27] MEDS: CARBIDOPA-LEVODOPA 10-100 MG 1 EACH TAB PO SCH ×3 (06:34→21:32)
[2021-11-27] MEDS: FAMOTIDINE 20 MG TAB PO SCH (06:34)
[2021-11-27] MEDS: MIDODRINE 5 MG TAB PO SCH ×4 (06:34→21:39)
[2021-11-27] MEDS: ATORVASTATIN 20 MG TAB PO SCH (08:30)
[2021-11-27] MEDS: CYANOCOBALAMIN 500 MCG TAB PO SCH (08:30)
[2021-11-27] MEDS: APIXABAN 5 MG TAB PO SCH (08:30)
[2021-11-27] MEDS: METOPROLOL TARTRATE 50 MG TAB PO SCH ×2 (08:30→21:31)
--- NOTE | 2021-11-27 14:22 | P.PN ---
Subjective This is a 76-year-old female with past medical history paroxysmal atrial fibrillation, unclear why patient is not on anticoagulation, COPD, and Parki nson's. Unknown if patient follows with a wellness assistant. We are consulted for elevated troponin. Patient presented emergency department from a long-term for shortness of breath and altered mental status, and increase oxygen requirements. Chest x-ray showed bibasilar pulmonary infiltrates right more than left patchy airspace disease concerning for multifocal pneumonia. Her troponins were 0.10, 0.14, 0.11. Patient was also found to have an elevated d-dimer, patient did have a CT angiogram completed that shows no evidence of central pulmonary embolis. 11/27/21 Patient seen and examined at bedside, no acute distress. Lethargic today. Went for EEG today. She denies chest pain or shortness of breath. She does have a cough. Her echocardiogram revealed an EF of 5560 percent, trace to mild mitral regurgitation, mild tricuspid regurgitation. She is in and out of atrial fibrillation on telemetry. Blood pressure 159/92, heart rate 91, afebrile, oxygen saturations 97% on 2 L nasal cannula She is currently maintained on aspirin 81 mg daily, atorvastatin 20 mg daily, losartan 100 mg nightly, metoprolol tartrate 50mg BID GENERAL: in no acute distress. NECK: Supple without JVD or thyromegaly. LUNGS: Breath sounds diminished to auscultation bilaterally. Respiration equal and unlabored. No wheezes, rales or rhonchi. HEART: Regular rate and rhythm without murmurs, rubs or gallops. S1 and S2 heard. EXTREMITIES: Normal range of motion, no edema. No clubbing or cyanosis. Peripheral pulses intact. ASSESSMENT Shortness of breath Altered mental status Elevated troponin, trend not indicative of acute coronary syndrome, likely supply and demand mismatch. no ischemia noted on EKG, 2-D echocardiogram with normal left ventricular systolic function with no wall motion abnormalities. Bibasilar pneumonia COPD Paroxysmal atrial fibrillation CHADSvasc 3 Recent history of fall and ORIF of the right hip Dementia History of parkinson's with recurrent falls. PLAN Continue losartan to 100mg nightly and metoprolol to 50mg BID 2D echocardiogram revealed normal left ventricular systolic function with no wall motion abnormalities. Anticoagulation has been held due to increased risk of bleeding and falls at home. Risk of anticoagulation outweighs benefit at this time due to safety concerns. We will add back patients aspirin Continue statin From a cardiology perspective, no further changes at this time. We will follow the patient as needed. Please reconsult if needed. Nurse Practitioner note has been reviewed, I agree with a documented findings and plan of care. Patient was seen and examined. Objective - Vital Signs Vital signs: Vital Signs Temp 97.9 F 11/27/21 08:00 Pulse 91 11/27/21 08:00 Resp 18 11/27/21 11:45 BP 159/92 11/27/21 08:00 Pulse Ox 97 11/27/21 11:45 Intake & Output 11/26/21 11/27/21 11/27/21 18:59 06:59 18:59 Intake Total 90 480 Output Total 600 175 Balance -510 -175 480 Intake: Oral 90 480 Output: Urine 600 175 Other: Voiding Method External Catheter External Catheter External Catheter # Voids 1 # Bowel Movements 0 - Labs CBC & Chem 7: 11/26/21 18:08 11/26/21 18:08 Labs: Abnormal Lab Results - Last 24 Hours (Table) 11/26/21 11/26/21 Range/Units 18:08 18:08 WBC 14.4 H (3.8-10.6) k/uL Neutrophils # 13.2 H (1.3-7.7) k/uL Lymphocytes # 0.4 L (1.0-4.8) k/uL BUN 18 H (7-17) mg/dL Creatinine 0.48 L (0.52-1.04) mg/dL Calcium 8.1 L (8.4-10.2) mg/dL Microbiology - Last 24 Hours (Table) 11/23/21 21:48 Blood Culture - Preliminary Blood No Growth after 72 hours
--- NOTE | 2021-11-27 15:02 | P.PN ---
Subjective Progress Note Date: 11/27/21 History of present illness 76 years old female one of my clinic patient ( Dr. Castrejon ) with past medical history of paroxysmal atrial fibrillation, Parkinson disease, dementia chronic home O2 for COPD, COPD, history of osteoporosis comes in after she had a fall on 11/03 was noted to have nondisplaced right acetabular fracture .follows by Dr. Janett Akbar, and is on on 50% weightbearing as tolerated on the right hip.she was [facility], however one day prior to admission, she was noted to have some cough, later on she was noted to have some hypoxemia.she was transferred to emergency room, secondary to the hypoxemia at 86%, on room air, decreased appetite,. She was transferred via ambulance, with O2, she had 3 negative rapid testcoronavirus antigen, and she is not vaccinated for the coronavirus.she is not anticoagulated for atrial fibrillation, secondary to recurrent falls In the emergency roomshe looks frail, imaging studies include CT angiogram, there is no evidence of pulmonary emboli, there is diffuse scattered groundglass pulmonary opacification, and consultation of lung bases bilateral. There is trace pleural effusion, CT of the brain, essentially negative for acute abnormalities, currently she is in the emergency room, pending bed availability, currently at 6 L nasal cannula, pulse ox at 99%.hemoglobin of 11.2, lymphocytes at 0.62 potassium low at 2.7being replaced, d-dimer of 5.3 creatinine of 1.2 urinalyses +1 ketones, urine WBC of 4 numerous hyalin cast peripheral smear, shows toxic granulation present, and toxic vacuolization 11/25: She is seen today sitting up in bed. She appears to be in no acute respiratory distress. She is on 6 L nasal cannula with pulse ox of 96%. She has been afebrile. Heart rate today is been running in the 70s and 80s, blood pressure 141/86. Repeat blood work reveals WBC 11.1 creatinine 0.65, BUN 37. Pro-calcitonin 3.31. Patient is on heparin drip due to elevated troponins and cardiology is planning to discontinue that today. Patient is also followed by pulmonary medicine. She is continued on Zosyn. Repeat chest x-ray reveals basilar atelectasis versus pneumonia, there may be associated effusion. Echocardiogram reveals EF 55-60%, mild aortic valve sclerosis, mild mitral regurgitation, mild tricuspid regurgitation. 11/26: Patient failed modified barium swallow and speech therapy has recommended pured diet with nectar thick liquids, aspiration precautions, no straws. According to nursing staff, patient ate a little bit this morning but then goes to sleep. Due to concern for mental status changes. Repeat CAT scan of the brain revealed degenerative nonspecific white matter changes. No acute hemorrhage or mass effect.. No need for neurology consult at this time. She has been afebrile, heart rate 97, blood pressure 161/91, pulse ox 96% on 4 L nasal cannula. Heparin drip was discontinued yesterday and patient started on eliquis by cardiology. She is continued on Zosyn and followed by pulmonary medicine and cardiology. 11/27: Patient found sitting up in bed, she is awake and alert and able to answer questions. Patient is currently at [facility] following a fall and is therefore rehab. Patient has been afebrile, heart rate 64, blood pressure 137/80, pulse ox 95% on 2 L nasal cannula. EEG has been completed and report is pending. She is currently on. Diet with nectar thick liquids and aspiration precautions, no straws. Repeat blood work ordered for tomorrow, possible discharge back to [facility] tomorrow. Dr. Sylvester updated the patient's daughter and she states that she does not want the patient on eliquis due to her frequent falls. Eliquis will be discontinued. ROS Constitutional: No fever, no chills, no night sweats. No weight change. Reported weakness, reported fatigue reported lethargy. No daytime sleepiness. EENT: No headache. No blurred vision or double vision, no loss of vision. No loss of Hearing, no ringing in the ears, no dizziness. No nasal drainage or congestion. No epistaxis. No sore throat. Lungs: No shortness of breath, cough, no sputum production. No wheezing. Cardiovascular: No chest pain, no lower extremity edema. No palpitations. No paroxysmal nocturnal dyspnea. No orthopnea. No lightheadedness or dizziness. No syncopal episodes. Abdominal: No abdominal pain. No nausea, vomiting. No diarrhea. No constipation. No bloody or tarry stools.. No loss of appetite. Genitourinary: No dysuria, increased frequency, urgency. No urinary retention. Musculoskeletal: No myalgias. Noted generalized muscle weakness, reported gait dysfunction, reported frequent falls. No back pain. No neck pain. Integumentary: No wounds, no lesions. No rash or pruritus. No unusual bruising. No change in hair or nails. Neurologic: No aphasia. No facial droop. Reported change in mentation. No head injury. No headache. No paralysis. No paresthesia. Psychiatric: No depression. No anxiety. No mood swings. Endocrine: No abnormal blood sugars. No weight change. No excessive sweating or thirst. No cold intolerance. Physical exam - Constitutional General appearance: cooperative, no acute distress, thin frail - EENT Eyes: anicteric sclerae, PERRLA, normal appearance ENT: hearing grossly normal - Neck Neck: no lymphadenopathy, normal ROM, no other, no rigidity, no stridor, no thyromegaly - Respiratory Respiratory: bilateral: CTA, negative: diminished, dullness, rales, rhonchi - Cardiovascular Rhythm: regular Heart sounds: normal: S1, S2 Abnormal Heart Sounds: no systolic murmur, no diastolic murmur, no rub, no S3 Gallop, no S4 Gallop, no click, no other - Gastrointestinal General gastrointestinal: normal bowel sounds, soft nontender - Integumentary Integumentary: no rash - Neurologic Neurologic no sensorimotor deficit - Musculoskeletal Musculoskeletal: Generalized weakness, no noted deformity - Psychiatric Psychiatric: Patient awake alert and oriented to person. Assessment and plan 1. Acute pneumonia with hypoxemia, acute on chronic respiratory hypoxic failure, suspect aspiration, speech eval,IV Zosyn, consult with pulmonary appreciated. Continue. Diet with nectar thick liquids. 2. Right acetabular fracture with fall on 11/03/2021. No plan for surgery with 50% weightbearing on the right lower extremity. PTOT consult with return to subacute rehabto help with gait instability. Plan to return to [facility] for rehab 3. Parkinson's, with recurrent falls, continue on Sinemet 10/100 3 times a day, and amantadine 100 twice a day 4. Autonomic hypotension with dehydration, acute kidney injury, with ATN -Continue midodrine 10 mg 3 times a day 5. History of paroxysmal atrial fibrillation Patient not on any rate controlling medication or any blood thinnersecondary to multiple falls 6. Dysphagia, possibly secondary to frailty has sarcopenia, check fo esophagram, has food and pill dysphagia. Might need modified barium swallow evalspeech consult 7. Hypo-kalemia, replacement in progress 8. Elevated troponin, most likely secondary to sepsis. ALLERGY consult appreciated. Heparin to be discontinued. 7 Depression -Continue Zoloft and 25 mg by mouth daily 9 coronavirus vaccination, not vaccinated 10 coronary virus PCR test, negative 11 DVT prophylaxis Heparin every 12 DISCHARGE PLAN Return to [facility] on Impression and plan of care have been directed as dictated by the signing physician. Leslie Jaramillo nurse practitioner acting as scribe for signing physician. Objective - Vital Signs Vital signs: Vital Signs Temp 97.9 F 11/27/21 08:00 Pulse 91 11/27/21 08:00 Resp 18 11/27/21 08:00 BP 159/92 11/27/21 08:00 Pulse Ox 97 11/27/21 08:00 Intake & Output 11/26/21 11/27/21 11/27/21 18:59 06:59 18:59 Intake Total 90 240 Output Total 600 175 Balance -510 -175 240 Intake: Oral 90 240 Output: Urine 600 175 Other: Voiding Method External Catheter External Catheter External Catheter # Voids 1 - Labs CBC & Chem 7: 11/26/21 18:08 11/26/21 18:08 Labs: Abnormal Lab Results - Last 24 Hours (Table) 11/26/21 11/26/21 Range/Units 18:08 18:08 WBC 14.4 H (3.8-10.6) k/uL Neutrophils # 13.2 H (1.3-7.7) k/uL Lymphocytes # 0.4 L (1.0-4.8) k/uL BUN 18 H (7-17) mg/dL Creatinine 0.48 L (0.52-1.04) mg/dL Calcium 8.1 L (8.4-10.2) mg/dL Microbiology - Last 24 Hours (Table) 11/23/21 21:48 Blood Culture - Preliminary Blood No Growth after 72 hours
--- NOTE | 2021-11-27 17:28 | EEG ---
ELECTROENCEPHALOGRAM REPORT DATE OF SERVICE: 11/27/2021 This is a 76-year-old woman with reported history of Parkinson disease and dementia who has altered mental status. The video EEG is obtained to evaluate for seizure epileptiform activity. RELEVANT MEDICATION: The patient is not on any antiepileptic drugs. EEG TYPE: A routine 21 channel EEG is performed with video using the 10/20 electrode placement system. DESCRIPTION: Wakefulness is only obtained. During the awake state, the background consisted of low to moderate voltage of 6-7 hertz theta activity that is nonrhythmic and occasionally the background consists of nonrhythmic delta activity. There is no physiological stage 2 sleep architecture. There is no focal slowing. Interictal and ictal is none. ACTIVATION PROCEDURE: Photic stimulation did not evoke a posterior driving response. There is no abnormality during the photic stimulation. Hyperventilation is not performed. CLINICAL INTERPRETATION: This is an abnormal routine EEG. The background slowing is suggestive of mild to moderate encephalopathy of unspecified etiology. There is no focal slowing, epileptiform discharges or seizure on the EEG. Clinical correlation is recommended. MMBEVERLY / NOELN: [id number] / [email or web address]
--- NOTE | 2021-11-27 18:14 | P.PN ---
Subjective Progress Note Date: 11/27/21 Principal diagnosis: dyspnea, hypoxia 76-year-old female patient was brought into the emergency department yesterday because of shortness of breath and altered mental status.. The patient was very weak and lethargic for the past 2 days. She is normally on home O2 at 2 L per minute nasal cannula and sometimes she uses 4 L. She was negative for covert 19. She came in with worsening shortness of breath and lightheadedness. She denies having any chest pain. No reported fever or chills. No pleurisy. No hemoptysis. In the emergency department, the patient was found to be afebrile. Initial blood pressure was 95/63. Pulse ox was 86% on room air oxygen. The chest x-ray showed bibasilar pulmonary infiltrates right more than left patchy airspace disease concerning for multifocal pneumonia and there is some background COPD in addition. The patient was supple with a 4.7 with hemoglobin 9.5 and a platelet count of 176. TPN was 79 with a creatinine of 1.2. Sodium i s at 137 and the potassium was at 3.2, BMI was 79 and a creatinine was 1.2. The patient had normal coagulation profile. D-dimer was at 5.3. LFTs were normal. The patient's lactic acid level was at 1.0. Troponin was 0.1. ProBNP level was 5000. CT angiogram was done and the patient had no evidence of any pulmonary embolism. There was diffuse scattered groundglass pulmonary opacities and some consolidation of the lung bases bilaterally. Trace pleural effusions were also seen. SHe is a [facility] resident and she had a fall and she had ORIF of the right hip and since then she has been in the [facility]. The CAT scan of the brain was essentially negative for any acute abnormalities. The patient is currently on 6 L by nasal cannula. Her current pulse ox is 99%. Reevaluated today on 11/25/21, patient is feeling better, she is on 6 L nasal cannula, and her O2 saturations 96%. Patient does not seem to be in any distress. She is on antibiotics for presumptive pneumonia, she is also on diuretics, and over the last 24 hours there have been some improvement. Chest x-ray today showed bibasilar pneumonia and small effusions, and she count is 11.1 hemoglobin is 11.8. PTT is 40.7. Therapeutic. Electrolytes are normal, renal profile is normal. Pro-calcitonin is 3.31 which seems to be in favor of underlying pneumonia as noted by Dr. Francois on admission. on 11/26/2021 patient seen in follow-up on selective care unit, she is lethargic, but wakes up to verbal stimulation, she is able to provide some simple one or 2 word answers, does not appear to be in any acute distress, on 6 L of oxygen her pulse ox is 98% and FiO2 has further been decreased down to 4 L, her pulse ox remained stable, she is breathing comfortably, lung sounds reveal diminished breath sounds, overall patient is weak, she is recovering from recent hip surgery and following her hip surgery patient developed bilateral pneumonia, and was readmitted and we were consulted for pulmonary management. patient was evaluated by speech therapy she had a modified barium swallow which showed deep penetration with thin liquids, no aspiration or penetration with nectar thick and greater consistencies, there was mild pooling within the vallecula, and poor bolus formation and delayed swallowing. patient is currently on a heart healthy diet with that are thick liquids, aspiration precautions, and dysphagia level I pured consistency solids. today's labs have been reviewed, white blood cell count is 11.1, hemoglobin is 11.8, sodium is 139, potassium is 4.1, chloride is 108, BUN is improved and is down to 37, creatinine is 0.65. Pro-calcitonin level was increased at 3.31 confirming possibility of aspiration pneumonia. Patient is on Zosyn for empiric antibiotic coverage.blood cultures have been negative, patient was unable to produce a sputum specimen for culture. Vital signs have been stable, no worsening dyspnea or hypoxia overnight. Generally she seems to be debilitated, she has difficulty sitting up unassisted. Physical therapy is consulted On 11/27/2021 patient seen in follow-up on selective care unit, she is resting comfortably in bed, she is lethargic but arousable, does not appear to be in any respiratory distress, she is currently intubated and was of oxygen her pulse ox is 95%, no worsening cough or dyspnea, vital signs have been stable, she's been afebrile. Hemodynamically she has been stable, no new labs today. She didn't is being treated for bilateral pneumonia, she remains on Zosyn, her pro- calcitonin level was elevated and patient was highly suspected. Objective - Vital Signs Vital signs: Vital Signs Temp 98.0 F 11/27/21 14:00 Pulse 64 11/27/21 14:00 Resp 16 11/27/21 14:00 BP 137/80 11/27/21 14:00 Pulse Ox 95 11/27/21 14:00 Intake & Output 11/26/21 11/27/21 11/27/21 18:59 06:59 18:59 Intake Total 90 480 Output Total 600 175 Balance -510 -175 480 Intake: Oral 90 480 Output: Urine 600 175 Other: Voiding Method External Catheter External Catheter External Catheter # Voids 1 # Bowel Movements 0 - Exam GENERAL EXAM: Somnolent but very weak, debilitated, but comfortable 76 white female, on 2l/min with Pulse ox of 96% in no apparent distress. HEAD: Normocephalic/atraumatic. EYES: Normal reaction of pupils, equal size. Conjunctiva pink, sclera white. NOSE: Clear with pink turbinates. THROAT: No erythema or exudates. NECK: No masses, no JVD, no thyroid enlargement, no adenopathy. CHEST: No chest wall deformity. Symmetrical expansion. LUNGS: Equal air entry with crackles CVS: Regular rate and rhythm, normal S1 and S2, no gallops, no murmurs, no rubs ABDOMEN: Soft, nontender. No hepatosplenomegaly, normal bowel sounds, no guarding or rigidity. EXTREMITIES: No clubbing, no edema, no cyanosis, 2+ pulses and upper and lower extremities. MUSCULOSKELETAL: Muscle strength and tone normal. SPINE: No scoliosis or deformity SKIN: No rashes CENTRAL NERVOUS SYSTEM: Lethargic, but awakens to voice. No focal deficits, tone is normal in all 4 extremities. - Labs CBC & Chem 7: 11/26/21 18:08 11/26/21 18:08 Labs: Abnormal Lab Results - Last 24 Hours (Table) 11/26/21 11/26/21 Range/Units 18:08 18:08 WBC 14.4 H (3.8-10.6) k/uL Neutrophils # 13.2 H (1.3-7.7) k/uL Lymphocytes # 0.4 L (1.0-4.8) k/uL BUN 18 H (7-17) mg/dL Creatinine 0.48 L (0.52-1.04) mg/dL Calcium 8.1 L (8.4-10.2) mg/dL Microbiology - Last 24 Hours (Table) 11/23/21 21:48 Blood Culture - Preliminary Blood No Growth after 72 hours Assessment and Plan Plan: Assessment: #1. Acute on chronic hypoxic respiratory failure secondary to bibasilar pneumonia possibly related to aspiration, COVID 19 PCR was negative #2. History of underlying COPD, patient is usually maintained on 2 L of oxygen at home on a regular basis #3. Chronic paroxysmal atrial fibrillation #4. Recent history of a fall, with right hip fracture, status post open reduction with internal fixation #5. History of Parkinson's disease #6. Generalized medical debility #7. History of dementia #8. Suspect chronic aspiration, modified barium swallow showed deep penetration with thin liquids. There was no aspiration or penetration noted with nectar thick greater consistencies, patient is currently on dysphagia level I diet with pured solids and nectar thick liquids with recommended aspiration precautions Plan: Continue weaning oxygen to maintain O2 sat of 90-92% currently down to 2 L of oxygen No worsening dyspnea, no cough, no fever or chills Continue current antibiotic coverage her Zosyn can be switched over to on Augmentin upon discharge Clinically patient has remained stable, without worsening dyspnea Maintain aspiration precautions, if remains stable patient may be considered for discharge, and currently discharge planning is for [facility] on the [place] in the next 24 hours I performed a history & physical examination of the patient and discussed their management with my nurse practitioner, Ekta Sweet. I reviewed the nurse practitioner's note and agree with the documented findings and plan of care. Lung sounds are positive for diffuse wheezes throughout the lung curtis. The findings and the impression was discussed with the patient. I attest to the documentation by the nurse practitioner. Time with Patient: Less than 30
[2021-11-27] MEDS: SERTRALINE 25 MG TAB PO SCH (21:31)
[2021-11-27] MEDS: LOSARTAN 50 MG TAB PO SCH (21:31)
[2021-11-28] MEDS: PIPERACILLIN-TAZOBACTAM 3.375 GM in SODIUM CHLORIDE 0.9% 100 ML IVPB SCH (05:22)
[2021-11-28] MEDS: MIDODRINE 5 MG TAB PO SCH (05:23)
[2021-11-28] MEDS: CARBIDOPA-LEVODOPA 10-100 MG 1 EACH TAB PO SCH (05:23)
[2021-11-28] MEDS: FAMOTIDINE 20 MG TAB PO SCH (05:23)
[2021-11-28] MEDS: METOPROLOL TARTRATE 50 MG TAB PO SCH (07:29)
[2021-11-28] MEDS: CYANOCOBALAMIN 500 MCG TAB PO SCH (07:30)
[2021-11-28] MEDS: ATORVASTATIN 20 MG TAB PO SCH (07:30)
[2021-11-28 08:09] VITALS: BP 144/80; PULSE 72; RESP 16; TEMP 97.6
[2021-11-28] MEDS ORDERED: ASPIRIN 81 MG PO SCH (09:00)
--- NOTE | 2021-11-28 11:19 | P.DS ---
Providers Date of admission: 11/23/21 19:54 Expected date of discharge: 11/28/21 Attending physician: Francoise Castrejon Consults: 11/23/21 19:26 Consult Physician Urgent Consulting Provider: Brody Francois Consult Reason/Comments: Pneumonia, hypoxia Do you want consulting provider notified?: Yes 11/26/21 12:03 Consult Physician Routine Consulting Provider: Leonardo Montalvo Consult Reason/Comments: MENTAL STATUS CHANGE Do you want consulting provider notified?: Yes Primary care physician: Francoise Castrejon Hospital Course: History of present illness 76 years old female one of my clinic patient ( Dr. Castrejon ) with past medical history of paroxysmal atrial fibrillation, Parkinson disease, dementia chronic home O2 for COPD, COPD, history of osteoporosis comes in after she had a fall on 11/03 was noted to have nondisplaced right acetabular fracture .follows by Dr. Janett Akbar, and is on on 50% weightbearing as tolerated on the right hip.she was recovering very nicely at the half-way, however one day prior to admission, she was noted to have some cough, later on she was noted to have some hypoxemia.she was transferred to emergency room, secondary to the hypoxemia at 86%, on room air, decreased appetite,. She was transferred via ambulance, with O2, she had 3 negative rapid testcoronavirus antigen, and she is not vaccinated for the coronavirus.she is not anticoagulated for atrial fibrillation, secondary to recurrent falls In the emergency roomshe looks frail, imaging studies include CT angiogram, there is no evidence of pulmonary emboli, there is diffuse scattered groundglass pulmonary opacification, and consultation of lung bases bilateral. There is trace pleural effusion, CT of the brain, essentially negative for acute abnormalities, currently she is in the emergency room, pending bed availability, currently at 6 L nasal cannula, pulse ox at 99%.hemoglobin of 11.2, lymphocytes at 0.62 potassium low at 2.7being replaced, d-dimer of 5.3 creatinine of 1.2 urinalyses +1 ketones, urine WBC of 4 numerous hyalin cast peripheral smear, shows toxic granulation present, and toxic vacuolization 11/25: She is seen today sitting up in bed. She appears to be in no acute respiratory distress. She is on 6 L nasal cannula with pulse ox of 96%. She has been afebrile. Heart rate today is been running in the 70s and 80s, blood pressure 141/86. Repeat blood work reveals WBC 11.1 creatinine 0.65, BUN 37. Pro-calcitonin 3.31. Patient is on heparin drip due to elevated troponins and cardiology is planning to discontinue that today. Patient is also followed by pulmonary medicine. She is continued on Zosyn. Repeat chest x-ray reveals basilar atelectasis versus pneumonia, there may be associated effusion. Echocardiogram reveals EF 55-60%, mild aortic valve sclerosis, mild mitral regurgitation, mild tricuspid regurgitation. 11/26: Patient failed modified barium swallow and speech therapy has recommended pured diet with nectar thick liquids, aspiration precautions, no straws. According to nursing staff, patient ate a little bit this morning but then goes to sleep. Due to concern for mental status changes. Repeat CAT scan of the brain revealed degenerative nonspecific white matter changes. No acute hemorrhage or mass effect.. No need for neurology consult at this time. She has been afebrile, heart rate 97, blood pressure 161/91, pulse ox 96% on 4 L nasal cannula. Heparin drip was discontinued yesterday and patient started on eliquis by cardiology. She is continued on Zosyn and followed by pulmonary medicine and cardiology. 11/27: Patient found sitting up in bed, she is awake and alert and able to answer questions. Patient is currently at [facility] following a fall and is therefore rehab. Patient has been afebrile, heart rate 64, blood pressure 137/80, pulse ox 95% on 2 L nasal cannula. EEG has been completed and report is pending. She is currently on. Diet with nectar thick liquids and aspiration precautions, no straws. Repeat blood work ordered for tomorrow, possible discharge back to [facility] tomorrow. Dr. Sylvester updated the patient's daughter and she states that she does not want the patient on eliquis due to her frequent falls. Eliquis will be discontinued. 11/28: Patient is seen today sitting up in recliner. She is awake and alert. No new concerns. Her respiratory status is stable. Patient has been afebrile, heart rate 72, blood pressure 144/80, pulse ox 95% on 2 L nasal cannula. Patient will be discharged back to [facility] today in stable condition. DISCHARGE DIAGNOSES 1. Acute pneumonia with hypoxemia, acute on chronic respiratory hypoxic failure, suspect aspiration, ammonia. 2. Right acetabular fracture with fall on 11/03/2021. No plan for surgery with 50% weightbearing on the right lower extremity. 3. Parkinson's, with recurrent falls 4. Autonomic hypotension with dehydration, acute kidney injury, with ATN 5. History of paroxysmal atrial fibrillation 6. Dysphagia, possibly secondary to frailty has sarcopenia 7. Hypo-kalemia 8. Elevated troponin, most likely secondary to sepsis. 7 Depression, recurrent 9 coronary virus PCR test, negative DISCHARGE PLAN Return to [facility] Greater than 35 minutes was utilized and coordinating patient's discharge. Impression and plan of care have been directed as dictated by the signing physician. Leslie Jaramillo nurse practitioner acting as scribe for signing physician. Patient Condition at Discharge: Good Plan - Discharge Summary Discharge Rx Participant: Yes New Discharge Prescriptions: New Losartan [Cozaar] 100 mg PO HS@2100 tab Atorvastatin [Lipitor] 20 mg PO DAILY tab Metoprolol Tartrate [Lopressor] 50 mg PO BID tab Continue Sertraline [Zoloft] 25 mg PO HS@2100 Aspirin 81 mg PO DAILY@0900 amantadine HCL [Symmetrel] 100 mg PO BID@0900,2100 Midodrine HCl [ProAmatine] 10 mg PO TID@0600,1400,2200 Famotidine 20 mg PO DAILY@0600 Ergocalciferol (Vitamin D2) [Drisdol (50,000 Iu)] 1,250 mcg PO SA@0900 Cyanocobalamin (Vitamin B-12) [Vitamin B-12] 1,000 mcg PO DAILY@0900 Carbidopa/Levodopa [Sinemet 10-100 mg Tablet] 1 tab PO TID@0600,1400,2200 Sennosides [Senokot] 17.2 mg PO DAILY PRN PRN Reason: Constipation Discontinued HYDROcodone/APAP 5-325MG [Waldo 5-325] 1 tab PO Q6HR PRN #30 tab PRN Reason: Pain Losartan [Cozaar] 50 mg PO HS@2100 Discharge Medication List Cyanocobalamin (Vitamin B-12) [Vitamin B-12] 1,000 mcg PO DAILY@0900 03/24/21 [History] Ergocalciferol (Vitamin D2) [Drisdol (50,000 Iu)] 1,250 mcg PO SA@0900 03/24/21 [History] Famotidine 20 mg PO DAILY@0600 03/24/21 [History] Aspirin 81 mg PO DAILY@0900 11/03/21 [History] Carbidopa/Levodopa [Sinemet 10-100 mg Tablet] 1 tab PO TID@0600,1400,2200 11/03/21 [History] Sennosides [Senokot] 17.2 mg PO DAILY PRN 11/03/21 [History] Sertraline [Zoloft] 25 mg PO HS@2100 11/03/21 [History] amantadine HCL [Symmetrel] 100 mg PO BID@0900,2100 11/03/21 [History] Midodrine HCl [ProAmatine] 10 mg PO TID@0600,1400,2200 11/23/21 [History] Atorvastatin [Lipitor] 20 mg PO DAILY tab 11/28/21 [Rx] Losartan [Cozaar] 100 mg PO HS@2100 tab 11/28/21 [Rx] Metoprolol Tartrate [Lopressor] 50 mg PO BID tab 11/28/21 [Rx] Follow up Appointment(s)/Referral(s): Francoise Castrejon MD [Primary Care Provider] - 1 Week (at [facility]) Discharge Disposition: TRANSFER TO SNF/ECF
[2021-11-30] MEDS ORDERED: ERGOCALCIFEROL 1,250 MCG (50,000 IU) CAPSULE PO SCH (09:00)
== END 2021-11-28 14:41 | DRG 871 ==
LOC: EC 15:47 → 3SCARD 19:54 → 4SSUR 11-27 23:24
PROVIDERS: ADMIT Family Medicine; ATTEND Family Medicine
DX: A41.9 Sepsis, unspecified organism (principal); J18.9 Pneumonia, unspecified organism; J96.21 Acute and chronic respiratory failure with hypoxia; N17.0 Acute kidney failure with tubular necrosis; J44.0 Chronic obstructive pulmonary disease with (acute) lower respiratory infection; E86.0 Dehydration; E87.6 Hypokalemia; F02.80 Dementia in other diseases classified elsewhere, unspecified severity, without behavioral disturbance, psychotic disturbance, mood disturbance, and anxiety; F32.A Depression, unspecified; G20 Parkinson's disease; I48.0 Paroxysmal atrial fibrillation; M81.0 Age-related osteoporosis without current pathological fracture; I95.89 Other hypotension; R13.10 Dysphagia, unspecified; R29.6 Repeated falls; Z20.822 Contact with and (suspected) exposure to COVID-19; Z79.82 Long term (current) use of aspirin; Z79.899 Other long term (current) drug therapy; S32.401D Unspecified fracture of right acetabulum, subsequent encounter for fracture with routine healing; W19.XXXD Unspecified fall, subsequent encounter
CPT/HCPCS: 36415; 70450; 71045; 71275; 74230; 80048; 80053; 81001; 83605; 83735; 83880; 84145; 84484; 85025; 85379; 85610; 85730; 87040; 87635; 93005; 93306; 94640; 94760; 95816; 96360; 99291

== ENCOUNTER 2021-12-10 14:03 | Emergency (ER) | payer MEDICARE ==
[2021-12-10] MEDS ORDERED: SODIUM CHLORIDE 0.9% 1,000 ML IV STA (14:20)
--- NOTE | 2021-12-10 14:26 | ED ---
General Adult HPI - General Stated complaint: failure to thrive Time Seen by Provider: 12/10/21 14:06 Source: patient, RN notes reviewed Mode of arrival: EMS Limitations: no limitations - History of Present Illness Initial comments: Patient is a pleasant 76 old female presenting to the emergency Department with reported concerns from [facility]dc for patient not eating and drinking well as well as some confusion. Patient states she is feeling fine and has no complaints. Patient states she has been drinking well. EMS reports patient a note 4 and was taken and ensure when they found her. Patient was recently in the hospital. - Related Data Home Medications Medication Instructions Recorded Confirmed Cyanocobalamin (Vitamin B-12) 1,000 mcg PO DAILY@0900 03/24/21 12/10/21 [Vitamin B-12] Ergocalciferol (Vitamin D2) 1,250 mcg PO SA@0900 03/24/21 12/10/21 [Drisdol (50,000 Iu)] Famotidine 20 mg PO DAILY@0600 03/24/21 12/10/21 Carbidopa/Levodopa [Sinemet 10-100 1 tab PO TID@0600,1400,2200 11/03/21 12/10/21 mg Tablet] Sennosides [Senokot] 17.2 mg PO DAILY PRN 11/03/21 12/10/21 Sertraline [Zoloft] 25 mg PO HS@2100 11/03/21 12/10/21 amantadine HCL [Symmetrel] 100 mg PO Q12H 11/03/21 12/10/21 Midodrine HCl [ProAmatine] 10 mg PO TID@0800,1200,1800 11/23/21 12/10/21 Aspirin EC [Ecotrin Low Dose] 81 mg PO DAILY 12/10/21 12/10/21 Atorvastatin [Lipitor] 20 mg PO HS 12/10/21 12/10/21 Fluticasone/Salmeterol [Advair 1 puff INHALATION RT-BID@0900,1700 12/10/21 12/10/21 250-50 Diskus] Lactose-Reduced Food [Ensure Plus] 120 ml PO TID@0900,1300,1700 12/10/21 12/10/21 Metoprolol Tartrate [Lopressor] 50 mg PO Q12H 12/10/21 12/10/21 Zguard 1 applic TOPICAL DAILY PRN 12/10/21 12/10/21 Zguard 1 applic TOPICAL Q12H 12/10/21 12/10/21 predniSONE [Deltasone] See Taper PO DIRECTED 12/10/21 12/10/21 Previous Rx's Medication Instructions Recorded Losartan [Cozaar] 100 mg PO HS@2100 tab 11/28/21 Cephalexin [Keflex] 500 mg PO TID #30 cap 12/10/21 Allergies Allergy/AdvReac Type Severity Reaction Status Date / Time No Known Allergies Allergy Verified 12/10/21 15:08 Review of Systems ROS Statement: Those systems with pertinent positive or pertinent negative responses have been documented in the HPI. ROS Other: All systems not noted in ROS Statement are negative. Constitutional: Denies: fever Eyes: Denies: eye pain ENT: Denies: ear pain Respiratory: Denies: cough, dyspnea Cardiovascular: Denies: chest pain Endocrine: Denies: fatigue Gastrointestinal: Denies: abdominal pain Genitourinary: Denies: dysuria Musculoskeletal: Denies: back pain Skin: Denies: rash Neurological: Reports: as per HPI 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 History of Any Multi-Drug Resistant Organisms: None Reported Past Surgical History: Section, Joint Replacement, Tonsillectomy, Tubal Ligation Additional Past Surgical History / Comment(s): left humerus fx, right humerus fx, left hip fx Past Anesthesia/Blood Transfusion Reactions: No Reported Reaction Past Psychological History: No Psychological Hx Reported Smoking Status: Never smoker Past Alcohol Use History: None Reported Past Drug Use History: None Reported General Exam Limitations: no limitations General appearance: alert, in no apparent distress Head exam: Present: atraumatic, normocephalic Eye exam: Present: normal appearance, PERRL, EOMI ENT exam: Present: normal oropharynx Neck exam: Present: normal inspection. Absent: tenderness, meningismus Respiratory exam: Present: normal lung sounds bilaterally Cardiovascular Exam: Present: regular rate, normal rhythm GI/Abdominal exam: Present: soft. Absent: tenderness Extremities exam: Present: normal inspection Neurological exam: Present: alert, oriented X3, CN II-XII intact. Absent: motor sensory deficit Expanded Neurological exam: Present: protecting the airway Patient oriented to: Present: person, place, time Speech: Present: fluid speech Cranial nerves: EOM's Intact: Normal Motor strength exam: RUE: 5, LUE: 5, RLE: 5, LLE: 5 Eye Response: (4) open spontaneously Motor Response: (6) obeys commands Verbal Response: (5) oriented Psychiatric exam: Present: normal affect, normal mood Skin exam: Present: normal color Course Vital Signs 12/10/21 14:08 Pulse Rate 70 Respiratory 16 Rate Blood Pressure 134/81 O2 Sat by Pulse 99 Oximetry EKG Findings - EKG Comments: EKG Findings:: Normal sinus rhythm with a rate of 73. MN 166. QRS 88. QT 404. QTC 445. Left axis. Normal QRS. No acute ST change. Medical Decision Making - Medical Decision Making Patient reevaluated and resting comfortably in bed. Patient remains symptom- free. Patient remains alert and oriented. Case was discussed with Dr. Sylvester, covering for Dr. Castrejon who recommends oral antibiotics and discharge. - Lab Data Result diagrams: 12/10/21 Unknown 12/10/21 Unknown Lab Results 12/10/21 12/10/21 12/10/21 Range/Units 16:11 Unknown Unknown WBC 6.9 (3.8-10.6) k/uL RBC 4.02 (3.80-5.40) m/uL Hgb 12.2 (11.4-16.0) gm/dL Hct 38.7 (34.0-46.0) % MCV 96.3 (80.0-100.0) fL MCH 30.5 (25.0-35.0) pg MCHC 31.7 (31.0-37.0) g/dL RDW 14.2 (11.5-15.5) % Plt Count 278 (150-450) k/uL MPV 9.6 Neutrophils % 80 % Lymphocytes % 11 % Monocytes % 7 % Eosinophils % 1 % Basophils % 0 % Neutrophils # 5.5 (1.3-7.7) k/uL Lymphocytes # 0.8 L (1.0-4.8) k/uL Monocytes # 0.5 (0-1.0) k/uL Eosinophils # 0.0 (0-0.7) k/uL Basophils # 0.0 (0-0.2) k/uL PT 10.9 (9.0-12.0) sec INR 1.0 (<1.2) APTT 22.9 (22.0-30.0) sec Sodium (137-145) mmol/L Potassium (3.5-5.1) mmol/L Chloride (98-107) mmol/L Carbon Dioxide (22-30) mmol/L Anion Gap mmol/L BUN (7-17) mg/dL Creatinine (0.52-1.04) mg/dL Est GFR (CKD-EPI)AfAm (>60 ml/min/1.73 sqM) Est GFR (CKD-EPI)NonAf (>60 ml/min/1.73 sqM) Glucose (74-99) mg/dL Plasma Lactic Acid Demond (0.7-2.0) mmol/L Calcium (8.4-10.2) mg/dL Magnesium (1.6-2.3) mg/dL Total Bilirubin (0.2-1.3) mg/dL AST (14-36) U/L ALT (4-34) U/L Alkaline Phosphatase (38-126) U/L Troponin I (0.000-0.034) ng/mL Total Protein (6.3-8.2) g/dL Albumin (3.5-5.0) g/dL Urine Color Yellow Urine Appearance Cloudy H (Clear) Urine pH 7.0 (5.0-8.0) Ur Specific [place] 1.017 (1.001-1.035) Urine Protein Trace H (Negative) Urine Glucose (UA) Negative (Negative) Urine Ketones Negative (Negative) Urine Blood Trace H (Negative) Urine Nitrite Negative (Negative) Urine Bilirubin Negative (Negative) Urine Urobilinogen <2.0 (<2.0) mg/dL Ur Leukocyte Esterase Large H (Negative) Urine RBC 27 H (0-5) /hpf Urine WBC 129 H (0-5) /hpf Ur Squamous Epith Cells <1 (0-4) /hpf Amorphous Sediment Few H (None) /hpf Urine Bacteria Rare H (None) /hpf Urine Mucus Rare H (None) /hpf 12/10/21 12/10/21 12/10/21 Range/Units Unknown Unknown Unknown WBC (3.8-10.6) k/uL RBC (3.80-5.40) m/uL Hgb (11.4-16.0) gm/dL Hct (34.0-46.0) % MCV (80.0-100.0) fL MCH (25.0-35.0) pg MCHC (31.0-37.0) g/dL RDW (11.5-15.5) % Plt Count (150-450) k/uL MPV Neutrophils % % Lymphocytes % % Monocytes % % Eosinophils % % Basophils % % Neutrophils # (1.3-7.7) k/uL Lymphocytes # (1.0-4.8) k/uL Monocytes # (0-1.0) k/uL Eosinophils # (0-0.7) k/uL Basophils # (0-0.2) k/uL PT (9.0-12.0) sec INR (<1.2) APTT (22.0-30.0) sec Sodium 137 (137-145) mmol/L Potassium 4.1 (3.5-5.1) mmol/L Chloride 100 (98-107) mmol/L Carbon Dioxide 33 H (22-30) mmol/L Anion Gap 4 mmol/L BUN 17 (7-17) mg/dL Creatinine 0.37 L (0.52-1.04) mg/dL Est GFR (CKD-EPI)AfAm >90 (>60 ml/min/1.73 sqM) Est GFR (CKD-EPI)NonAf >90 (>60 ml/min/1.73 sqM) Glucose 121 H (74-99) mg/dL Plasma Lactic Acid Demond 1.0 (0.7-2.0) mmol/L Calcium 8.8 (8.4-10.2) mg/dL Magnesium 2.0 (1.6-2.3) mg/dL Total Bilirubin 0.7 (0.2-1.3) mg/dL AST 16 (14-36) U/L ALT 6 (4-34) U/L Alkaline Phosphatase 98 (38-126) U/L Troponin I <0.012 (0.000-0.034) ng/mL Total Protein 6.3 (6.3-8.2) g/dL Albumin 3.2 L (3.5-5.0) g/dL Urine Color Urine Appearance (Clear) Urine pH (5.0-8.0) Ur Specific [place] (1.001-1.035) Urine Protein (Negative) Urine Glucose (UA) (Negative) Urine Ketones (Negative) Urine Blood (Negative) Urine Nitrite (Negative) Urine Bilirubin (Negative) Urine Urobilinogen (<2.0) mg/dL Ur Leukocyte Esterase (Negative) Urine RBC (0-5) /hpf Urine WBC (0-5) /hpf Ur Squamous Epith Cells (0-4) /hpf Amorphous Sediment (None) /hpf Urine Bacteria (None) /hpf Urine Mucus (None) /hpf - Radiology Data Radiology results: report reviewed (CT of the brain shows atrophy), image reviewed (Chest x-ray shows chronic changes. Persistent but improving infiltrates/atelectasis.) Disposition Clinical Impression: Urinary tract infection Disposition: HOME SELF-CARE Condition: Stable Instructions (If sedation given, give patient instructions): Urinary Tract Infection in Women (ED), Altered Mental Status (ED), Urinary Tract Infection in Older Adults (ED) Additional Instructions: Prescription for antibiotics written. Please start this in the morning. Please follow-up with primary care physician in the next day or 2 for recheck. Return for fevers, increased weakness, not tolerating oral intake, change in mental status, worsening symptoms or other concerns. Prescriptions: Cephalexin [Keflex] 500 mg PO TID #30 cap Is patient prescribed a controlled substance at d/c from ED?: No Referrals: Francoise Castrejon MD [Primary Care Provider] - 1-2 days Time of Disposition: 16:52
[2021-12-10 14:30] VITALS: RESP 16
[2021-12-10 15:11] LABS: ALT 6 U/L (4-34); AST 16 U/L (14-36); African American GFR (CKD) >90 (>60 ml/min/1.73 sqM); Albumin 3.2 g/dL (3.5-5.0); Alkaline Phosphatase 98 U/L (38-126); Anion Gap 4 mmol/L; Blood Urea Nitrogen 17 mg/dL (7-17); Calcium 8.8 mg/dL (8.4-10.2); Carbon Dioxide 33 mmol/L (22-30); Chloride 100 mmol/L (98-107); Glucose 121 mg/dL (74-99); Non-African American GFR(CKD) >90 (>60 ml/min/1.73 sqM); Potassium 4.1 mmol/L (3.5-5.1); Sodium 137 mmol/L (137-145); Total Bilirubin 0.7 mg/dL (0.2-1.3); Total Protein 6.3 g/dL (6.3-8.2)
[2021-12-10 15:12] LABS: Basophils % (A) 0 %; Eosinophils % (A) 1 %; HCT 38.7 % (34.0-46.0); HGB 12.2 gm/dL (11.4-16.0); Lymphocytes # (A) 0.8 k/uL (1.0-4.8); Lymphocytes % (A) 11 %; MCH 30.5 pg (25.0-35.0); MCHC 31.7 g/dL (31.0-37.0); MCV 96.3 fL (80.0-100.0); Mean Platelet Volume 9.6; Monocytes # (A) 0.5 k/uL (0-1.0); Monocytes % (A) 7 %; Neutrophils # (A) 5.5 k/uL (1.3-7.7); Neutrophils % (A) 80 %; Platelet Count 278 k/uL (150-450); RBC 4.02 m/uL (3.80-5.40); RDW 14.2 % (11.5-15.5); WBC 6.9 k/uL (3.8-10.6)
--- NOTE | 2021-12-10 15:14 | XR ---
EXAMINATION TYPE: XR chest 2V DATE OF EXAM: 12/10/2021 COMPARISON: Chest x-ray November 25, 2021 HISTORY: Weakness TECHNIQUE: Frontal and lateral views of the chest are obtained. FINDINGS: The osseous structures remain demineralized. Old fracture deformity left proximal humerus redemonstrated. Background chronic parenchymal changes with improved bibasilar opacities. No pleural effusion or pneumothorax seen bilaterally. Cardiac silhouette size within normal limits with atherosc lerotic change thoracic aorta IMPRESSION: Chronic changes with persistent but improving bibasilar acute infiltrates and/or atelect asis.
--- NOTE | 2021-12-10 15:20 | CT ---
EXAMINATION TYPE: CT brain wo con DATE OF EXAM: 12/10/2021 COMPARISON: 11/26/21 HISTORY: Weakness. CT DLP: 1188.[address] of the brain was performed. The ventricles, basal cisterns and sulci overlying the cerebral convexities demonstrate mild enlargem ent. There is no evidence for intracranial hemorrhage or sulcal effacement. There is decreased attenuation about the periventricular white matter and deep white matter of both c erebral hemispheres, compatible with chronic small vessel ischemia. Differential diagnosis does inclu de demyelination. No mass effects are seen.No midline shift. Osseous calvarium is intact. If symptoms persist consider MRI. IMPRESSION: 1. Age related atrophic and chronic small vessel ischemic change without acute intracranial process s een at this time.
[2021-12-10 15:31] LABS: Partial Thromboplastin Time 22.9 sec (22.0-30.0); Prothrombin Time 10.9 sec (9.0-12.0)
[2021-12-10 16:26] LABS: Appearance,Urine Cloudy (Clear); Bilirubin,Urine Negative (Negative); Color,Urine Yellow; Glucose,Urine (UA) Negative (Negative); Ketones,Urine Negative (Negative); Protein,Urine Trace (Negative); Specific Gravity,Urine 1.017 (1.001-1.035)
[2021-12-10 16:27] LABS: Amorphous Sediment,Urine Few /hpf; Bacteria,Urine Rare /hpf; Blood,Urine Trace (Negative); Leukocyte Esterase,Urine Large (Negative); Mucus,Urine Rare /hpf; Nitrite,Urine Negative (Negative); RBC,Urine 27 /hpf (0-5); Squamous Epithelial Cell,Urine <1 /hpf (0-4); Urobilinogen,Urine <2.0 mg/dL (<2.0); WBC,Urine 129 /hpf (0-5)
[2021-12-10] MEDS ORDERED: cefTRIAXone IN SWFI 1,000 MG/10 ML SYRINGE IVP STA (16:52)
[2021-12-10 17:26] VITALS: BP 152/84; PULSE 67
== END 2021-12-10 19:08 | disposition home or self-care (01) ==
LOC: EC 14:03
DX: N39.0 Urinary tract infection, site not specified (principal); I48.91 Unspecified atrial fibrillation; J44.9 Chronic obstructive pulmonary disease, unspecified; G20 Parkinson's disease; Z79.82 Long term (current) use of aspirin; Z79.52 Long term (current) use of systemic steroids; Z79.899 Other long term (current) drug therapy
CPT/HCPCS: 36415; 70450; 71046; 80053; 81001; 83605; 83735; 84484; 85025; 85610; 85730; 87086; 93005; 96361; 96374; 99285

== ENCOUNTER 2022-04-13 19:48 | Inpatient (IN) | payer MEDICARE ==
[2022-04-13] MEDS ORDERED: LIDOCAINE 1% INJ 10MG/ML (5 ML VIAL-PF) SQ ONE (20:27)
[2022-04-13] MEDS ORDERED: DIPH,PERTUS(ACELL)TETVAC-LF 0.5 ML VIAL IM ONE (20:32)
--- NOTE | 2022-04-13 20:32 | ED ---
General Adult HPI - General Chief complaint: Fall Stated complaint: Fall Time Seen by Provider: 04/13/22 20:25 Source: patient, EMS, RN notes reviewed, old records reviewed Mode of arrival: EMS Limitations: no limitations - History of Present Illness Initial comments: 76-year-old female presents to the emergency room via EMS stating she tripped going up the stairs. Patient sustained lacerations to the forehead and is complaining of neck pain 04/18. Patient denies any back, hip or leg pain. Denies loss of consciousness. She states she is not on blood thinners. -: hour(s) Location: head, face, neck Severity scale (1-10): 6 Quality: aching Improves with: none Worsens with: movement Associated Symptoms: headaches, other (neck pain) Treatments Prior to Arrival: other (C collar) - Related Data Home Medications Medication Instructions Recorded Confirmed Cyanocobalamin (Vitamin B-12) 1,000 mcg PO DAILY 03/24/21 04/02/22 [Vitamin B-12] Ergocalciferol (Vitamin D2) 1,250 mcg PO Q7D 03/24/21 04/02/22 [Drisdol (50,000 Iu)] Famotidine 20 mg PO DAILY@0600 03/24/21 04/02/22 Carbidopa/Levodopa [Sinemet 10-100 1 tab PO QID 11/03/21 04/02/22 mg Tablet] Sertraline [Zoloft] 25 mg PO DAILY 11/03/21 04/02/22 amantadine HCL [Symmetrel] 100 mg PO Q12H 11/03/21 04/02/22 Midodrine HCl [ProAmatine] 10 mg PO TID@0800,1200,1800 11/23/21 04/02/22 Aspirin EC [Ecotrin Low Dose] 81 mg PO DAILY 12/10/21 04/02/22 Metoprolol Tartrate [Lopressor] 50 mg PO Q12H 12/10/21 04/02/22 Fluticasone Propion/Salmeterol 1 puff INHALATION RT-BID 04/02/22 04/02/22 [Wixela 250-50 Inhub] Losartan [Cozaar] 25 mg PO DAILY 04/02/22 04/02/22 Nitrofurantoin Monohyd/M-Cryst 100 mg PO Q12HR 04/02/22 04/02/22 [Macrobid] traMADol HCL 50 mg PO TID 04/02/22 04/02/22 Previous Rx's Medication Instructions Recorded Ipratropium-Albuterol Nebulize 3 ml INHALATION TID #90 ml 04/03/22 [Duoneb 0.5 mg-3 mg/3 ml Soln] Allergies Allergy/AdvReac Type Severity Reaction Status Date / Time No Known Allergies Allergy Verified 04/13/22 19:55 Review of Systems ROS Statement: Those systems with pertinent positive or pertinent negative responses have been documented in the HPI. ROS Other: All systems not noted in ROS Statement are negative. 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 History of Any Multi-Drug Resistant Organisms: MRSA Date of last positivie culture/infection: 04/01/22 MDRO Source:: Urine Past Surgical History: Section, Joint Replacement, Tonsillectomy, Tubal Ligation Additional Past Surgical History / Comment(s): left humerus fx, right humerus fx, left hip fx Past Anesthesia/Blood Transfusion Reactions: No Reported Reaction Past Psychological History: No Psychological Hx Reported Smoking Status: Never smoker Past Alcohol Use History: None Reported Past Drug Use History: None Reported General Exam Limitations: no limitations General appearance: alert, in no apparent distress Head exam: Present: other (Lacerations to the forehead and nasal bridge) Expanded Head exam: Present: laceration, abrasion, other (Dried blood within the right nostril). Absent: tenderness of temporal artery Eye exam: Present: normal appearance, PERRL, EOMI. Absent: scleral icterus, conjunctival injection, periorbital swelling, periorbital tenderness ENT exam: Present: mucous membranes dry Neck exam: Present: tenderness. Absent: meningismus Respiratory exam: Present: normal lung sounds bilaterally. Absent: respiratory distress, accessory muscle use Cardiovascular Exam: Present: regular rate, normal rhythm GI/Abdominal exam: Present: soft. Absent: distended, tenderness, rigid Extremities exam: Present: normal capillary refill. Absent: pedal edema Back exam: Absent: tenderness, CVA tenderness (R), CVA tenderness (L) Neurological exam: Present: alert Psychiatric exam: Present: normal affect, normal mood Skin exam: Present: warm, dry. Absent: cyanosis, diaphoretic Course Vital Signs 04/13/22 04/13/22 04/13/22 19:49 20:55 22:00 Temperature 97.4 F L 97.8 F Pulse Rate 68 76 72 Respiratory 20 20 20 Rate Blood Pressure 162/94 190/90 174/94 O2 Sat by Pulse 98 97 99 Oximetry - Reevaluation(s) Reevaluation #1: 04/13/22 21:49 Family member at bedside spoke to the nurse and states that patient is on doxycycline for urinary tract infection. They are also concerned that she may have pneumonia and requesting a chest x-ray. Time: 21:49 Procedures - Laceration Laceration #1 Consent Obtained: verbal consent Indication: laceration Site: face Size (cm): 1 Description: linear Depth: simple, single layer Anesthetic Used: lidocaine 1% Anesthesia Technique: local infiltration Pre-repair: irrigated extensively Type of Sutures: nylon Size of Sutures: 5-0 Number of Sutures: 4 Technique: simple, interrupted Patient Tolerated Procedure: well Laceration #2 Consent Obtained: verbal consent Indication: laceration Site: face Size (cm): 2 Description: linear Depth: simple, single layer Anesthetic Used: lidocaine 1% Anesthesia Technique: local infiltration Pre-repair: irrigated extensively Type of Sutures: nylon Size of Sutures: 5-0 Number of Sutures: 3 Technique: simple, interrupted Patient Tolerated Procedure: well Medical Decision Making - Medical Decision Making CT of brain shows no mass or midline shift. No intracranial hemorrhage. Skull is intact. CT C-spine shows normal vertebral alignment, no compression fracture or subluxation. There is multilevel cervical hypertrophic facet arthropathy, no change compared to old exam. Troponin is negative at 0.012 EKG shows sinus rhythm. Pelvis x-ray shows a slight deformity of the right inferior pubic rami. Possible fractures of the right superior and inferior pubic rami. Patient denies any pelvic or hip pain. Chest x-ray shows no evidence of infiltrate. Family at bedside states the patient has been increasingly weak and having difficulty ambulating since October. Family states she was recently treated for pneumonia. Family also states that patient has had 2 episodes of "catatonia " where she just stares off and sometimes starts shaking. Patient will be admitted for fall, pubic rami fracture, UTI and altered mental status. - Lab Data Result diagrams: 04/13/22 20:28 04/13/22 20:28 Lab Results 04/13/22 04/13/22 04/13/22 Range/Units 20:28 20:28 20:28 WBC 4.8 (3.8-10.6) k/uL RBC 4.05 (3.80-5.40) m/uL Hgb 12.0 (11.4-16.0) gm/dL Hct 38.4 (34.0-46.0) % MCV 94.8 (80.0-100.0) fL MCH 29.6 (25.0-35.0) pg MCHC 31.3 (31.0-37.0) g/dL RDW 13.1 (11.5-15.5) % Plt Count 145 L (150-450) k/uL MPV 10.5 Neutrophils % 50 % Lymphocytes % 35 % Monocytes % 9 % Eosinophils % 2 % Basophils % 2 % Neutrophils # 2.4 (1.3-7.7) k/uL Lymphocytes # 1.7 (1.0-4.8) k/uL Monocytes # 0.5 (0-1.0) k/uL Eosinophils # 0.1 (0-0.7) k/uL Basophils # 0.1 (0-0.2) k/uL PT 10.7 (9.0-12.0) sec INR 1.0 (<1.2) APTT 24.2 (22.0-30.0) sec Sodium 138 (137-145) mmol/L Potassium 3.6 (3.5-5.1) mmol/L Chloride 101 (98-107) mmol/L Carbon Dioxide 26 (22-30) mmol/L Anion Gap 11 mmol/L BUN 24 H (7-17) mg/dL Creatinine 0.62 (0.52-1.04) mg/dL Est GFR (CKD-EPI)AfAm >90 (>60 ml/min/1.73 sqM) Est GFR (CKD-EPI)NonAf 88 (>60 ml/min/1.73 sqM) Glucose 109 H (74-99) mg/dL Calcium 8.5 (8.4-10.2) mg/dL Total Bilirubin 0.5 (0.2-1.3) mg/dL AST 19 (14-36) U/L ALT 7 (4-34) U/L Alkaline Phosphatase 72 (38-126) U/L Troponin I (0.000-0.034) ng/mL Total Protein 7.1 (6.3-8.2) g/dL Albumin 4.0 (3.5-5.0) g/dL Urine Color Urine Appearance (Clear) Urine pH (5.0-8.0) Ur Specific Empire (1.001-1.035) Urine Protein (Negative) Urine Glucose (UA) (Negative) Urine Ketones (Negative) Urine Blood (Negative) Urine Nitrite (Negative) Urine Bilirubin (Negative) Urine Urobilinogen (<2.0) mg/dL Ur Leukocyte Esterase (Negative) Urine RBC (0-5) /hpf Urine WBC (0-5) /hpf Ur Squamous Epith Cells (0-4) /hpf Amorphous Sediment (None) /hpf Urine Bacteria (None) /hpf Hyaline Casts (0-2) /lpf Urine Mucus (None) /hpf 04/13/22 04/13/22 Range/Units 20:50 20:50 WBC (3.8-10.6) k/uL RBC (3.80-5.40) m/uL Hgb (11.4-16.0) gm/dL Hct (34.0-46.0) % MCV (80.0-100.0) fL MCH (25.0-35.0) pg MCHC (31.0-37.0) g/dL RDW (11.5-15.5) % Plt Count (150-450) k/uL MPV Neutrophils % % Lymphocytes % % Monocytes % % Eosinophils % % Basophils % % Neutrophils # (1.3-7.7) k/uL Lymphocytes # (1.0-4.8) k/uL Monocytes # (0-1.0) k/uL Eosinophils # (0-0.7) k/uL Basophils # (0-0.2) k/uL PT (9.0-12.0) sec INR (<1.2) APTT (22.0-30.0) sec Sodium (137-145) mmol/L Potassium (3.5-5.1) mmol/L Chloride (98-107) mmol/L Carbon Dioxide (22-30) mmol/L Anion Gap mmol/L BUN (7-17) mg/dL Creatinine (0.52-1.04) mg/dL Est GFR (CKD-EPI)AfAm (>60 ml/min/1.73 sqM) Est GFR (CKD-EPI)NonAf (>60 ml/min/1.73 sqM) Glucose (74-99) mg/dL Calcium (8.4-10.2) mg/dL Total Bilirubin (0.2-1.3) mg/dL AST (14-36) U/L ALT (4-34) U/L Alkaline Phosphatase (38-126) U/L Troponin I <0.012 (0.000-0.034) ng/mL Total Protein (6.3-8.2) g/dL Albumin (3.5-5.0) g/dL Urine Color Yellow Urine Appearance Cloudy H (Clear) Urine pH 5.5 (5.0-8.0) Ur Specific Empire 1.012 (1.001-1.035) Urine Protein Trace H (Negative) Urine Glucose (UA) Negative (Negative) Urine Ketones Negative (Negative) Urine Blood Negative (Negative) Urine Nitrite Negative (Negative) Urine Bilirubin Negative (Negative) Urine Urobilinogen <2.0 (<2.0) mg/dL Ur Leukocyte Esterase Large H (Negative) Urine RBC 6 H (0-5) /hpf Urine WBC 31 H (0-5) /hpf Ur Squamous Epith Cells 2 (0-4) /hpf Amorphous Sediment Rare H (None) /hpf Urine Bacteria Rare H (None) /hpf Hyaline Casts 14 H (0-2) /lpf Urine Mucus Rare H (None) /hpf Disposition Clinical Impression: Fall, Face lacerations, Weakness, UTI (urinary tract infection), Altered mental status, Pubic ramus fracture Disposition: ADMITTED IP TO THIS HOSP Condition: Fair Is patient prescribed a controlled substance at d/c from ED?: No Decision Date: 04/13/22 Decision Time: 22:45
[2022-04-13] MEDS ORDERED: TOPICAL SKIN ADHESIVE 1 EACH AMP TOPICAL ONE (20:42)
[2022-04-13 20:58] LABS: Partial Thromboplastin Time 24.2 sec (22.0-30.0); Prothrombin Time 10.7 sec (9.0-12.0)
[2022-04-13 21:04] LABS: ALT 7 U/L (4-34); AST 19 U/L (14-36); African American GFR (CKD) >90 (>60 ml/min/1.73 sqM); Alkaline Phosphatase 72 U/L (38-126); Anion Gap 11 mmol/L; Blood Urea Nitrogen 24 mg/dL (7-17); Calcium 8.5 mg/dL (8.4-10.2); Carbon Dioxide 26 mmol/L (22-30); Chloride 101 mmol/L (98-107); Glucose 109 mg/dL (74-99); Non-African American GFR(CKD) 88 (>60 ml/min/1.73 sqM); Potassium 3.6 mmol/L (3.5-5.1); Sodium 138 mmol/L (137-145); Total Bilirubin 0.5 mg/dL (0.2-1.3); Total Protein 7.1 g/dL (6.3-8.2)
--- NOTE | 2022-04-13 21:12 | CT ---
EXAMINATION TYPE: CT brain yazmin wo con DATE OF EXAM: 04/13/2022 COMPARISON: 03/24/2021 HISTORY: Fall CT DLP: 1285 mGycm Automated exposure control for dose reduction was used. There is cerebral cortical atrophy. There is hypodensity in the periventricular white matter. There i s no mass effect or midline shift. No sign of intracranial hemorrhage. There is normal aeration of th e mastoid sinuses. Calvarium is intact. The skull base is intact. The cervical vertebra show normal alignment. There is apparent old anterior fusion surgery from C5 to C7. Posterior elements are intact. No compression fracture. There is multilevel degenerative disc sp taylor narrowing. No subluxation. There is multilevel cervical hypertrophic facet arthropathy. IMPRESSION: Spondylotic changes and previous surgery. No acute abnormality of the cervical spine. No change. Cerebral atrophy and chronic small vessel ischemia. No change compared to old exam.
--- NOTE | 2022-04-13 21:16 | XR ---
EXAMINATION TYPE: XR pelvis AP view DATE OF EXAM: 04/13/2022 COMPARISON: 11/03/2021 HISTORY: Fall. Pain TECHNIQUE: Single view FINDINGS: There is osteopenia. There is left hip prosthesis. There is slight deformity of the right i nferior pubic ramus. There is possible fractures of the right superior and inferior pubic rami. The p roximal right femur is intact. Sacroiliac joints are intact.. IMPRESSION: Possible right-sided pubic rami fractures. Osteopenia.
[2022-04-13 21:18] LABS: Basophils # (A) 0.1 k/uL (0-0.2); Basophils % (A) 2 %; Eosinophils # (A) 0.1 k/uL (0-0.7); Eosinophils % (A) 2 %; HCT 38.4 % (34.0-46.0); Lymphocytes # (A) 1.7 k/uL (1.0-4.8); Lymphocytes % (A) 35 %; MCH 29.6 pg (25.0-35.0); MCHC 31.3 g/dL (31.0-37.0); MCV 94.8 fL (80.0-100.0); Mean Platelet Volume 10.5; Monocytes # (A) 0.5 k/uL (0-1.0); Monocytes % (A) 9 %; Neutrophils # (A) 2.4 k/uL (1.3-7.7); Neutrophils % (A) 50 %; Platelet Count 145 k/uL (150-450); RBC 4.05 m/uL (3.80-5.40); RDW 13.1 % (11.5-15.5); WBC 4.8 k/uL (3.8-10.6)
[2022-04-13] MEDS ORDERED: BACITRACIN OINT 1 EACH PACKET TOPICAL ONE (21:30)
--- NOTE | 2022-04-13 21:56 | XR ---
EXAMINATION TYPE: XR chest 2V DATE OF EXAM: 04/13/2022 COMPARISON: 04/01/2022 HISTORY: Cough TECHNIQUE: 2 views FINDINGS: There is no heart failure nor confluent pneumonic infiltrate. Costophrenic angles are clear . Thoracic aorta is atheromatous. There are no hilar masses. There are chest leads. IMPRESSION: No active cardiopulmonary disease. Normal heart. No change.
[2022-04-13 22:37] LABS: Amorphous Sediment,Urine Rare /hpf; Appearance,Urine Cloudy (Clear); Bacteria,Urine Rare /hpf; Bilirubin,Urine Negative (Negative); Blood,Urine Negative (Negative); Color,Urine Yellow; Glucose,Urine (UA) Negative (Negative); Hyaline Casts,Urine 14 /lpf (0-2); Ketones,Urine Negative (Negative); Leukocyte Esterase,Urine Large (Negative); Mucus,Urine Rare /hpf; Nitrite,Urine Negative (Negative); PH, Urine 5.5 (5.0-8.0); Protein,Urine Trace (Negative); RBC,Urine 6 /hpf (0-5); Specific Gravity,Urine 1.012 (1.001-1.035); Squamous Epithelial Cell,Urine 2 /hpf (0-4); Urobilinogen,Urine <2.0 mg/dL (<2.0); WBC,Urine 31 /hpf (0-5)
[2022-04-13] MEDS ORDERED: cefTRIAXone IN SWFI 1,000 MG/10 ML SYRINGE IVP STA (22:45)
[2022-04-13] MEDS ORDERED: NALOXONE 0.4 MG/ML 1 ML VIAL IV PRN (22:48)
[2022-04-14] MEDS ORDERED: ACETAMINOPHEN TAB 325 MG TAB PO PRN (00:13)
--- NOTE | 2022-04-14 09:29 | P.HPIM ---
History of Present Illness H&P Date: 04/14/22 HISTORY OF PRESENT ILLNESS This is a 76-year-old female patient of Dr. Castrejon with past medical history of chronic atrial fibrillation not on anticoagulation secondary to frequent falls, COPD, hypotension, Parkinson's disease, recurrent depression. Patient has history of fall October 2021 with right acetabular fracture. Patient was hospitalized on April 02 due to an episode of lightheadedness after going to the bathroom, diarrhea for the past 3-4 weeks, intermittent double vision for 2-3 weeks. Patient was sitting on the couch and passed out according to the daughter. No injury was noted, no headache, no chest pain no neck pain no abdominal pain. She was seen by neurology and we will syncopal episode possibly due to hypovolemia from diarrhea. Patient was discharged home with [facility] and Shelia lift and a nebulizer were ordered. Patient was brought into the hospital by EMS after she tripped going up the stairs and sustained lacerations to the forehead complaining of neck pain. No loss of consciousness. Patient was unable to provide specific details. Patient presented to [facility] emergency center for evaluation . She was found to be afebrile, heart rate 68, blood pressure 162/94, pulse ox 98% on room air. 2 lacerations were sutured. CAT scan of the brain and cervical spine revealed spondylotic changes and previous surgery. No acute abnormality of the cervical spine. Cerebral atrophy and chronic small vessel ischemia. No change. Pelvis x-ray revealed possible right sided pubic petra fractures. Osteopenia. Chest x-ray reveals no active cardio pulmonary disease. Normal heart. No change. Platelet count 145 otherwise CBC was within normal limits. INR 1.0. BUN 24 creatinine 0.62. Electrolytes within normal limits. Glucose 109. Troponin negative. Liver function tests were normal. Albumin 4. Urinalysis cloudy, leukoesterase large, RBC 6, wbc's 31. Patient is status post tetanus status up-to-date with T dab, one dose of Rocephin, [facility], PT and OT consults added and orthopedics on consult. REVIEW OF SYSTEMS Constitutional: No fever, no chills, no night sweats. No weight change. No weakness, fatigue or lethargy. No daytime sleepiness. EENT: No headache. No blurred vision or double vision, no loss of vision. No loss of Hearing, no ringing in the ears, no dizziness. No nasal drainage or congestion. No epistaxis. No sore throat. Lungs: No shortness of breath, cough, no sputum production. No wheezing. Cardiovascular: No chest pain, no lower extremity edema. No palpitations. No paroxysmal nocturnal dyspnea. No orthopnea. Denies lightheadedness or dizziness. No syncopal episodes. Abdominal: No abdominal pain. No nausea, vomiting. Reports diarrhea. No constipation. No bloody or tarry stools.. No loss of appetite. Genitourinary: No dysuria, increased frequency, urgency. No urinary retention. Musculoskeletal: No myalgias. No muscle weakness, reports gait dysfunction, reports frequent falls. No back pain. No neck pain. Integumentary: Noted wounds, no lesions. No rash or pruritus. No unusual bruising. No change in hair or nails. Neurologic: No aphasia. No facial droop. Noted change in mentation-possible underlying dementia. No head injury. No headache. No paralysis. No paresthesia. Psychiatric: No depression. No anxiety. No mood swings. Endocrine: No abnormal blood sugars. No weight change. MEDICAL HISTORY Chronic atrial fibrillation not on anticoagulation secondary to frequent falls, COPD, hypotension on midodrine, Parkinson's disease, recurrent depression. SURGERY HISTORY Left hip replacement 2010, bilateral tubal ligation, tonsillectomy, . SOCIAL HISTORY Patient is a lifelong nonsmoker. No history of alcohol use. She has and lives with daughter and son-in-law. She has a walker and cane at home. No oxygen, nebulizer, CPAP. FAMILY HISTORY Mother is with history of diabetes. PHYSICAL EXAMINATION Gen: This is a 76-year-old female. Patient is resting in bed and appears to be comfortable and in no acute distress. HEENT: Head is atraumatic, normocephalic. Pupils equal, round. Sclerae is anicteric. NECK: Supple. No JVD. No lymphadenopathy. No thyromegaly. LUNGS: Clear to auscultation. No wheezes or rhonchi. No intercostal retractions. HEART: Regular rate and rhythm. No murmur. ABDOMEN: Soft. Bowel sounds are present. No masses. No tenderness. EXTREMITIES: No pedal edema. No calf tenderness. Dorsalis pedis palpable bilaterally. NEUROLOGICAL: Patient is awake, alert and oriented to person. Pleasantly confused. Cranial nerves 2 through 12 are grossly intact. ASSESSMENT AND PLAN 1. Pathologic pubic rami fracture with underlying osteopenia. Orthopedic consult, continue Tylenol for pain control, PT and OT consults. 2. Fall of unclear circumstances. Patient was thought to be w/c bound and Shelia lift was arranged at discharge from previous admission. 3. Laceration 2 status post suturing done in the emergency center. Local wound care. 4. Acute UTI. Patient started on Rocephin 1 gm IVPB daily, Uring culture. 5. Recent hospitalization for syncopal episode possibly due to hypovolemia from diarrhea. 6. History of paroxysmal atrial fibrillation not on anticoagulation secondary to frequent falls. 7. COPD, stable. 8. Autonomic Hypotension. Continue midodrine 10 mg 3 times daily with parameters. 9. Parkinson's disease. Continue Sinemet 30068 one 4 times daily. 10. Recurrent depression. Continue Zoloft 50 mg daily. 11. Gastroesophageal reflux disease and GI prophylaxis. Continue Pepcid 20 g daily. 12. DVT prophylaxis. Heparin subcu. Patient will be admitted to the hospital for a minimum of 2 night stay. DISCHARGE PLAN Subacute rehab. Impression and plan of care have been directed as dictated by the signing physician. Leslie Jaramillo nurse practitioner acting as scribe for signing physician. 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 History of Any Multi-Drug Resistant Organisms: MRSA Date of last positivie culture/infection: 04/01/22 MDRO Source:: Urine Past Surgical History: Section, Joint Replacement, Tonsillectomy, Tubal Ligation Additional Past Surgical History / Comment(s): left humerus fx, right humerus fx, left hip fx Past Anesthesia/Blood Transfusion Reactions: No Reported Reaction Past Psychological History: No Psychological Hx Reported Smoking Status: Never smoker Past Alcohol Use History: None Reported Past Drug Use History: None Reported Medications and Allergies Home Medications Medication Instructions Recorded Confirmed Type Cyanocobalamin (Vitamin B-12) 1,000 mcg PO DAILY 03/24/21 04/02/22 History [Vitamin B-12] Ergocalciferol (Vitamin D2) 1,250 mcg PO Q7D 03/24/21 04/02/22 History [Drisdol (50,000 Iu)] Famotidine 20 mg PO DAILY@0600 03/24/21 04/02/22 History Carbidopa/Levodopa [Sinemet 10-100 1 tab PO QID 11/03/21 04/02/22 History mg Tablet] Sertraline [Zoloft] 25 mg PO DAILY 11/03/21 04/02/22 History amantadine HCL [Symmetrel] 100 mg PO Q12H 11/03/21 04/02/22 History Midodrine HCl [ProAmatine] 10 mg PO TID@0800,1200,1800 11/23/21 04/02/22 History Aspirin EC [Ecotrin Low Dose] 81 mg PO DAILY 12/10/21 04/02/22 History Metoprolol Tartrate [Lopressor] 50 mg PO Q12H 12/10/21 04/02/22 History Fluticasone Propion/Salmeterol 1 puff INHALATION RT-BID 04/02/22 04/02/22 Histo ry [Wixela 250-50 Inhub] Losartan [Cozaar] 25 mg PO DAILY 04/02/22 04/02/22 History Nitrofurantoin Monohyd/M-Cryst 100 mg PO Q12HR 04/02/22 04/02/22 History [Macrobid] traMADol HCL 50 mg PO TID 04/02/22 04/02/22 History Ipratropium-Albuterol Nebulize 3 ml INHALATION TID #90 ml 04/03/22 Rx [Duoneb 0.5 mg-3 mg/3 ml Soln] Allergies Allergy/AdvReac Type Severity Reaction Status Date / Time No Known Allergies Allergy Verified 04/13/22 19:55 Physical Exam Vitals: Vital Signs Temp Pulse Pulse Pulse Resp BP BP 04/14/22 05:00 98.3 F 65 18 146/83 04/14/22 01:04 98.1 F 65 16 171/78 04/14/22 00:14 98 F 87 20 178/88 04/13/22 23:30 65 16 04/13/22 22:00 97.8 F 72 20 174/94 04/13/22 20:55 76 20 190/90 04/13/22 19:49 97.4 F L 68 20 162/94 Pulse Ox 04/14/22 05:00 04/14/22 01:04 97 04/14/22 00:14 97 04/13/22 23:30 04/13/22 22:00 99 04/13/22 20:55 97 04/13/22 19:49 98 Intake and Output 04/13/22 04/14/22 04/14/22 22:59 06:59 14:59 Other: # Voids 1 Weight 55.792 kg 55.792 kg Results CBC & Chem 7: 04/13/22 20:28 04/13/22 20:28 Labs: Abnormal Lab Results - Last 24 Hours (Table) 04/13/22 04/13/22 04/13/22 Range/Units 20:28 20:28 20:50 Plt Count 145 L (150-450) k/uL BUN 24 H (7-17) mg/dL Glucose 109 H (74-99) mg/dL Urine Appearance Cloudy H (Clear) Urine Protein Trace H (Negative) Ur Leukocyte Esterase Large H (Negative) Urine RBC 6 H (0-5) /hpf Urine WBC 31 H (0-5) /hpf Amorphous Sediment Rare H (None) /hpf Urine Bacteria Rare H (None) /hpf Hyaline Casts 14 H (0-2) /lpf Urine Mucus Rare H (None) /hpf Thrombosis Risk Factor Assmnt - Choose All That Apply Any of the Below Risk Factors Present?: No Other Risk Factors: Yes Each Risk Factor Represents 3 Points: Age 75 years or older Thrombosis Risk Factor Assessment Total Risk Factor Score: 3 Thrombosis Risk Factor Assessment Level: Moderate Risk
--- NOTE | 2022-04-14 20:44 | P.CNOR ---
History of Present Illness - [facility] Consult date: 04/14/22 Consult reason: fracture History of present illness: Patient is a pleasant 76 yo female seen at bedside this am in consultation for pubic ramii fracture. She was admitted through the ED yesterday after she tripped going up the stairs. Patient sustained lacerations to the forehead which was repaired and complained of neck pain where imaging showed no acute findings. Patient denies any back, hip or leg pain. She has history of left ZAHIDA and right acetabulum fracture treated conservatively. She states she uses a wheelchair mainly for mobility and lives alone. She states she is not on blood thinners. She has no other complaints. Review of Systems All systems: negative Constitutional: Denies chills, Denies fever Eyes: denies blurred vision, denies pain Ears, nose, mouth and throat: Denies headache, Denies sore throat Cardiovascular: Denies chest pain, Denies shortness of breath Respiratory: Denies cough Gastrointestinal: Denies abdominal pain, Denies diarrhea, Denies nausea, Denies vomiting Genitourinary: Denies dysuria, Denies hematuria Musculoskeletal: Denies myalgias Integumentary: Denies pruritus, Denies rash Neurological: Denies numbness, Denies weakness Psychiatric: Denies anxiety, Denies depression Endocrine: Denies fatigue, Denies weight change 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 History of Any Multi-Drug Resistant Organisms: MRSA Year Discovered:: 04/01/22 MDRO Source:: Urine Past Surgical History: Section, Joint Replacement, Tonsillectomy, Tubal Ligation Additional Past Surgical History / Comment(s): left humerus fx, right humerus fx, left hip fx Past Anesthesia/Blood Transfusion Reactions: No Reported Reaction Past Psychological History: No Psychological Hx Reported Smoking Status: Never smoker Past Alcohol Use History: None Reported Past Drug Use History: None Reported Medications and Allergies Home Medications Medication Instructions Recorded Confirmed Type Cyanocobalamin (Vitamin B-12) 1,000 mcg PO DAILY 03/24/21 04/14/22 History [Vitamin B-12] Ergocalciferol (Vitamin D2) 1,250 mcg PO Q7D 03/24/21 04/14/22 History [Drisdol (50,000 Iu)] Famotidine 20 mg PO DAILY@0600 03/24/21 04/14/22 History Carbidopa/Levodopa [Sinemet 10-100 1 tab PO QID 11/03/21 04/14/22 History mg Tablet] Sertraline [Zoloft] 25 mg PO DAILY 11/03/21 04/14/22 History amantadine HCL [Symmetrel] 100 mg PO Q12H 11/03/21 04/14/22 History Midodrine HCl [ProAmatine] 10 mg PO TID@0800,1200,1800 11/23/21 04/14/22 History Aspirin EC [Ecotrin Low Dose] 81 mg PO DAILY 12/10/21 04/14/22 History Metoprolol Tartrate [Lopressor] 50 mg PO Q12H 12/10/21 04/14/22 History Fluticasone Propion/Salmeterol 1 puff INHALATION RT-BID 04/02/22 04/14/22 History [Wixela 250-50 Inhub] Losartan [Cozaar] 25 mg PO DAILY 04/02/22 04/14/22 History Ipratropium-Albuterol Nebulize 3 ml INHALATION TID #90 ml 04/03/22 04/14/22 Rx [Duoneb 0.5 mg-3 mg/3 ml Soln] Doxycycline Hyclate 100 mg PO BID 04/14/22 04/14/22 History Allergies Allergy/AdvReac Type Severity Reaction Status Date / Time No Known Allergies Allergy Verified 04/13/22 19:55 Physical Examination Inspection of lower extremities shows no deformity. There are no wounds. There is no pain with passive ROM of bilateral hips and knees. Neurovascular status is intact throughout the lower extremities with motor and sensation fully intact. Calves are soft and nontender. 2+ dorsalis pedis pulse and less than 2 second cap refill is present. Results Xray of pelvis show possible nondisplaced right pubic ramii fracture otherwise negative for acute findings - Labs Labs: Abnormal Lab Results - Last 24 Hours (Table) 04/13/22 04/13/22 04/13/22 Range/Units 20:28 20:28 20:50 Plt Count 145 L (150-450) k/uL BUN 24 H (7-17) mg/dL Glucose 109 H (74-99) mg/dL Urine Appearance Cloudy H (Clear) Urine Protein Trace H (Negative) Ur Leukocyte Esterase Large H (Negative) Urine RBC 6 H (0-5) /hpf Urine WBC 31 H (0-5) /hpf Amorphous Sediment Rare H (None) /hpf Urine Bacteria Rare H (None) /hpf Hyaline Casts 14 H (0-2) /lpf Urine Mucus Rare H (None) /hpf Microbiology - Last 24 Hours (Table) 04/13/22 20:50 Urine Culture - Preliminary Urine,Voided H & H 04/13/22 Range/Units 20:28 Hgb 12.0 (11.4-16.0) gm/dL Hct 38.4 (34.0-46.0) % Coagulation 04/13/22 Range/Units 20:28 INR 1.0 (<1.2) Result Diagrams: 04/13/22 20:28 04/13/22 20:28 - Diagnostic results Hip x-ray: report reviewed, image reviewed Assessment and Plan (1) Pubic ramus fracture Narrative/Plan: Recommend continued pain management, PT/OT, DVT prophylaxis and medical sherley donis. She may be weight bearing to tolerance. Will continue to follow and make further recommendations as appropriate Current Visit: Yes Status: Acute Code(s): S32.599A - OTH FRACTURE OF UNSP PUBIS, INIT ENCNTR FOR CLOSED FRACTURE SNOMED Code(s): 40440202 Time with Patient: Less than 30
[2022-04-15] MEDS ORDERED: CEFDINIR 300 MG CAP PO SCH (09:00)
[2022-04-15] MEDS ORDERED: METOPROLOL TARTRATE 50 MG TAB PO SCH (09:00)
[2022-04-15] MEDS ORDERED: CYANOCOBALAMIN 500 MCG TAB PO SCH (09:00)
[2022-04-15] MEDS ORDERED: ASPIRIN 81 MG PO SCH (09:00)
[2022-04-15] MEDS ORDERED: LOSARTAN 25 MG TAB PO SCH (09:00)
[2022-04-15] MEDS ORDERED: SERTRALINE 25 MG TAB PO SCH (09:00)
--- NOTE | 2022-04-15 09:00 | P.PN ---
Progress Note - Text Progress Note Date: 04/15/22 Orthopedics: History of present illness: Patient is a very pleasant 76-year-old female who was seen examined at bedside for follow-up evaluation in regards to her right pubic rami fracture. She recently sustained a fall when she tripped going up some stairs sustaining a laceration to her forehead. Laceration was closed during evaluation emergency department. Reviewing of imaging showed evidence of possible right inferior pubic rami fracture. Patient does state she has some pain at the right side of her pelvis which has been worse since her recent fall. She does admit to some difficulty with ambulation over the past 4 weeks. She has a history of previous fall in October 2021 and was diagnosed with a right acetabular fracture at that time. She has a history of a left total hip arthroplasty. She also has chronic cervical pain. She is not currently complaining of cervical pain at the bedside to me this morning. She is seen this morning with medicine present. They state they're planning for discharge for the patient possibly today to a rehabilitation facility. We did discuss patient may weight-bear as tolerated right lower extremity the assistance of a walker. Physical Exam: Patient is awake, alert, and oriented 3 Vital signs stable Good chest excursion with deep inspiration and expiration No signs or symptoms of DVT; no calf pain Extensor hallucis longus, plantarflexion, and dorsiflexion positive sustained bilateral lower extremities Negative straight leg test bilaterally Patient is able to lift her legs off the bed independently No increased pain with internal and external rotation of the hips bilaterally Some pain towards her right pelvis with pelvis rocking Patient is able to perform active range of motion of cervical spine independently without significant difficulty Patient is able to perform active range of motion bilateral upper extremities without difficulty Evidence of laceration over the forehead which has been closed with suture Pertinent studies: X-ray of the pelvis taken on 04/13/2022: Slight deformity of the right inferior pubic ramus; no obvious superior pubic rami fracture; evidence of left total hip arthroplasty with retained hardware Assessment: Status post fall Right inferior pubic rami fracture Right pelvic pain Difficulty with ambulation on the right lower extremity History of previous fall in October 2021 with right acetabular fracture History left total hip arthroplasty Chronic cervical pain History C5-6 and C6 to 7 anterior cervical decompression and fusion Chronic atrial fibrillation not on anticoagulation due to frequent falls COPD Hypotension Parkinson's disease Impression Plan: 1. Patient recently sustained a fall and has had some increased pelvic pain which is exacerbated with trying to ambulate since that time. Patient does have difficulty with mobilization and a history of frequent falls. After her recent fall imaging did show evidence of deformity the right inferior pubic rami. Patient does have a history of previous fall October 2021 with right acetabular fracture. Patient does admit to some increased difficulty of mobility over the past 4 weeks. We did discuss she may continue to weight-bear as tolerated right lower extremity with assistance of a walker. We are not currently planning for surgical intervention in regards to her right inferior pubic rami fracture. I do not see obvious right superior pubic rami fracture. Patient has been discussed in detail with medicine who is currently planning for the patient to be discharged to a rehabilitation facility as early as today pending approval. We did discuss we'll plan to have her follow up in outpatient setting for further evaluation in regards to her right inferior pubic rami fracture. Patient does have some chronic cervical pain. She has a history of previous C5- 6 and C6-7 anterior cervical decompression and fusion without retained hardware. She is not currently complaining of any significant cervical pain at the bedside. We are not currently planning for acute surgical intervention regards her cervical spine. CT imaging was taken of her cervical spine during her admission which showed a history of previous fusion was significant degenerative change without obvious fracture. At this time, patient will be cleared for discharge from an orthopedic standpoint. We will plan to follow her up in the outpatient setting in regards to both her right inferior pubic rami fracture as well as her chronic cervical pain. We may plan for further testing as needed in the outpatient setting. Patient may follow-up with Jeb Saba PA-C or Dr. Tito Evans at [facility] in 2-3 weeks following discharge. 2. Patient will continue be seen examined by medicine for her other medical diagnoses who may plan for discharge to a rehabilitation facility today.
[2022-04-15] MEDS: CARBIDOPA-LEVODOPA 10-100 MG 1 EACH TAB PO SCH ×3 (10:06→17:59)
--- NOTE | 2022-04-15 10:42 | P.DS ---
Providers Date of admission: 04/13/22 22:43 Expected date of discharge: 04/15/22 Attending physician: Aldair Stone Consults: 04/13/22 22:53 Consult Physician Routine Consulting Provider: Raffy Rowland Consult Reason/Comments: Fall with pubic rami fracture Do you want consulting provider notified?: Yes, Notify in am Primary care physician: Francoise Castrejon [facility] Course: HISTORY OF PRESENT ILLNESS This is a 76-year-old female patient of Dr. Castrejon with past medical history of chronic atrial fibrillation not on anticoagulation secondary to fr equent falls, COPD, hypotension, Parkinson's disease, recurrent depression. Patient has history of fall October 2021 with right acetabular fracture. Patient was hospitalized on April 02 due to an episode of lightheadedness after going to the bathroom, diarrhea for the past 3-4 weeks, intermittent double vision for 2-3 weeks. Patient was sitting on the couch and passed out according to the daughter. No injury was noted, no headache, no chest pain no neck pain no abdominal pain. She was seen by neurology and we will syncopal episode possibly due to hypovolemia from diarrhea. Patient was discharged home with [facility] and Shelia lift and a nebulizer were ordered. Patient was brought into the hospital by EMS after she tripped going up the stairs and sustained lacerations to the forehead complaining of neck pain. No loss of consciousness. Patient was unable to provide specific details. Patient presented to [facility] emergency center for evaluation. She was found to be afebrile, heart rate 68, blood pressure 162/94, pulse ox 98% on room air. 2 lacerations were sutured. CAT scan of the brain and cervical spine revealed spondylotic changes and previo us surgery. No acute abnormality of the cervical spine. Cerebral atrophy and chronic small vessel ischemia. No change. Pelvis x-ray revealed possible right sided pubic petra fractures. Osteopenia. Chest x-ray reveals no active cardio pulmonary disease. Normal heart. No change. Platelet count 145 otherwise CBC was within normal limits. INR 1.0. BUN 24 creatinine 0.62. Electrolytes within normal limits. Glucose 109. Troponin negative. Liver function tests were normal. Albumin 4. Urinalysis cloudy, leukoesterase large, RBC 6, wbc's 31. Patient is status post tetanus status up-to-date with T dab, one dose of Rocephin, [facility], PT and OT consults added and orthopedics on consult. 04/15: Patient has been seen by orthopedics with recommendations to continue pain management, PT and OT. Patient may be weightbearing to tolerance. Patient repeats afebrile, heart rate 92, blood pressure 162/94, pulse ox 97% on room air. Urine culture is in progress. Discharge plan is for subacute rehab at either [facility] or [facility]. Patient will be discharged to rehab once arrangements are completed. DISCHARGE DIAGNOSES 1. Pathologic pubic rami fracture with underlying osteopenia. 2. Fall of unclear circumstances. 3. Laceration 2 status post suturing done in the emergency center. 4. Acute UTI. 5. Recent hospitalization for syncopal episode possibly due to hypovolemia from diarrhea. 6. History of paroxysmal atrial fibrillation not on anticoagulation secondary to frequent falls. 7. COPD, stable. 8. Autonomic Hypotension. 10. Recurrent depression. 11. Gastroesophageal reflux disease. 12. Essential tremor. DISCHARGE PLAN Subacute rehab at [facility] or [facility]. Greater than 35 minutes was utilized and coordinating patient's discharge. Impression and plan of care have been directed as dictated by the signing physician. Leslie Jaramillo nurse practitioner acting as scribe for signing physician. Patient Condition at Discharge: Fair Plan - Discharge Summary Discharge Rx Participant: Yes New Discharge Prescriptions: New Cefuroxime [Ceftin] 250 mg PO BID 7 Days #14 tab Continue Sertraline [Zoloft] 25 mg PO DAILY Metoprolol Tartrate [Lopressor] 50 mg PO Q12H Fluticasone Propion/Salmeterol [Wixela 250-50 Inhub] 1 puff INHALATION RT-BID Famotidine 20 mg PO DAILY@0600 Ergocalciferol (Vitamin D2) [Drisdol (50,000 Iu)] 1,250 mcg PO Q7D Cyanocobalamin (Vitamin B-12) [Vitamin B-12] 1,000 mcg PO DAILY Carbidopa/Levodopa [Sinemet 10-100 mg Tablet] 1 tab PO QID Aspirin EC [Ecotrin Low Dose] 81 mg PO DAILY Losartan [Cozaar] 25 mg PO DAILY Ipratropium-Albuterol Nebulize [Duoneb 0.5 mg-3 mg/3 ml Soln] 3 ml INHALATION TID #90 ml Discontinued amantadine HCL [Symmetrel] 100 mg PO Q12H Midodrine HCl [ProAmatine] 10 mg PO TID@0800,1200,1800 Doxycycline Hyclate 100 mg PO BID Discharge Medication List Cyanocobalamin (Vitamin B-12) [Vitamin B-12] 1,000 mcg PO DAILY 03/24/21 [History] Ergocalciferol (Vitamin D2) [Drisdol (50,000 Iu)] 1,250 mcg PO Q7D 03/24/21 [History] Famotidine 20 mg PO DAILY@0600 03/24/21 [History] Carbidopa/Levodopa [Sinemet 10-100 mg Tablet] 1 tab PO QID 11/03/21 [History] Sertraline [Zoloft] 25 mg PO DAILY 11/03/21 [History] Aspirin EC [Ecotrin Low Dose] 81 mg PO DAILY 12/10/21 [History] Metoprolol Tartrate [Lopressor] 50 mg PO Q12H 12/10/21 [History] Fluticasone Propion/Salmeterol [Wixela 250-50 Inhub] 1 puff INHALATION RT-BID 04/02/22 [History] Losartan [Cozaar] 25 mg PO DAILY 04/02/22 [History] Ipratropium-Albuterol Nebulize [Duoneb 0.5 mg-3 mg/3 ml Soln] 3 ml INHALATION TID #90 ml 04/03/22 [Rx] Cefuroxime [Ceftin] 250 mg PO BID 7 Days #14 tab 04/15/22 [Rx] Follow up Appointment(s)/Referral(s): Jeb Saba PAC [PHYSICIAN LICENSED NUCLEAR OPERATOR] - 2 Weeks (Patient may follow-up with Jeb Saba PA-C or Dr. Tito Evans at [facility] in 2-3 weeks following discharge. ) Francoise Castrejon MD [Primary Care Provider] - 1 Week (AT [facility]) Activity/Diet/Wound Care/Special Instructions: Sutures to be removed in 5 days. Keep a layer of bacitracin ointment over the sutures until removed. 1. Patient may weight-bear as tolerated on the right lower extremity with the assistance of a walker
[2022-04-15] MEDS: IPRATROPIUM-ALBUTEROL 3 ML NEB INHALATION SCH ×2 (11:42→19:05)
[2022-04-15 14:38] VITALS: BP 137/86; RESP 17; TEMP 98.1
--- NOTE | 2022-04-15 17:12 | CT ---
EXAMINATION TYPE: CT pelvis wo con DATE OF EXAM: 04/15/2022 COMPARISON: None HISTORY: fx of pubic rami CT DLP: 759 mGycm Automated exposure control for dose reduction was used. Images obtained from the iliac crest through the subtrochanteric femurs without contrast. There is right-sided renal parapelvic cysts. No hydronephrosis. No retroperitoneal adenopathy. Abdomi nal aorta is atheromatous. There is no ascites. No free fluid in the pelvis. There are some retained fecal material in the rectum. There is left hip prosthesis that appears in good position. There is nondisplaced fracture of the right inferior pubic ramus. There is some remodeling and this i s probably not acute. The acetabula appear intact. Sacroiliac joints are intact. There is multilevel lumbar spondylotic changes. Proximal right femur is intact. No hip fracture. The sacral masses appear intact. IMPRESSION: Nondisplaced right inferior pubic ramus fracture that is probably not acute. No acute fracture seen.
[2022-04-15 19:08] VITALS: PULSE 74
[2022-04-15] MEDS ORDERED: SYMBICORT 80-4.5 MCG INHALER INHALATION SCH (20:00)
[2022-04-16] MEDS ORDERED: FAMOTIDINE 20 MG TAB PO SCH (06:00)
== END 2022-04-15 19:19 | DRG 543 ==
LOC: EC 19:48 → 5NMEDONC 22:43
PROVIDERS: ADMIT Internal Medicine Geriatric Medicine; ATTEND Internal Medicine Geriatric Medicine
PROC: 0HQ0XZZ Repair Scalp Skin, External Approach (ICD-10-PCS; principal; 2022-04-13)
DX: M80.0AXA Age-related osteoporosis with current pathological fracture, other site, initial encounter for fracture (principal); S32.591A Other specified fracture of right pubis, initial encounter for closed fracture; N39.0 Urinary tract infection, site not specified; I48.20 Chronic atrial fibrillation, unspecified; F33.9 Major depressive disorder, recurrent, unspecified; S01.81XA Laceration without foreign body of other part of head, initial encounter; R55 Syncope and collapse; J44.9 Chronic obstructive pulmonary disease, unspecified; E86.1 Hypovolemia; M47.892 Other spondylosis, cervical region; I48.0 Paroxysmal atrial fibrillation; G20 Parkinson's disease; M54.2 Cervicalgia; R19.7 Diarrhea, unspecified; M85.80 Other specified disorders of bone density and structure, unspecified site; I95.9 Hypotension, unspecified; G25.0 Essential tremor; K21.9 Gastro-esophageal reflux disease without esophagitis; R29.6 Repeated falls; W18.43XA Slipping, tripping and stumbling without falling due to stepping from one level to another, initial encounter; Y92.018 Other place in single-family (private) house as the place of occurrence of the external cause; Z91.81 History of falling; Z98.51 Tubal ligation status; Z96.642 Presence of left artificial hip joint; W19.XXXA Unspecified fall, initial encounter; Z79.899 Other long term (current) drug therapy; Z79.82 Long term (current) use of aspirin; Z86.14 Personal history of Methicillin resistant Staphylococcus aureus infection; Z87.440 Personal history of urinary (tract) infections; Z87.01 Personal history of pneumonia (recurrent); Z83.3 Family history of diabetes mellitus
CPT/HCPCS: 12013; 36415; 70450; 71046; 72125; 72170; 72192; 80053; 81001; 84484; 85025; 85610; 85730; 87040; 87086; 90471; 90715; 93005; 94640; 96374; 99285